=== PATIENT | male | born 1960 | race Caucasian/White ===

== ENCOUNTER 2018-02-05 17:46 | Inpatient (IN) | payer OTHER ==
[2018-02-05] MEDS ORDERED: Piperacillin/Tazobactam 3.375 GM VIAL ONE (21:17)
--- NOTE | 2018-02-05 22:07 | PDOC.FPRHP ---
- History of Present Illness Chief Complaint: worsening shortness of breath History of Present Illness: Timothy Ross is a 57 yo M with PMH of T2DM, HTN, COPD who presents to the ED with a month long history of worsening shortness of breath. He has had associated increased cough and sputum production as well. The shortness of breath is worse when he is active. States he gets short of breath just walking to the restroom. Denies fevers, chills, night sweats. He has had COPD for several years and is normally controlled on a Levalbuterol nebulizer PRN. He does not use oxygen at home. States that he has had episodes like this in the past, normally brought on by allergies, and it improves with Rocephin shots. He does not take a daily inhaler. The patients sees a PA in [place] and for the last month, he has been on a trial of a z-pack, then had about 8 rocephin shots over about a 2 week period and finally levaquin, which he just finished about 2 days ago. Also states that he was getting steroids too. There therapies improved his symptoms minimally for a short period of time. - Allergies/Adverse Reactions Allergies Allergy/AdvReac Type Severity Reaction Status Date / Time No Known Drug Allergies Allergy Unverified 02/05/18 23:32 - Home Medications Comments: Unable to obtain a reliable medication list. Medication reconciliation to follow. - History PMHx: HTN, COPD, Type 2 DM PSHx: L knee surgery, L shoulder surgery, hemorrhoid repair FHx: unknown Social: Patient quit smoking 46 days ago, using nicotine patches. Denies current alcohol or drug use. Stated he used to be an alcoholic but has not drank in 10 years. - Review of Systems General: denies: fever/chills, weight/appetite/sleep changes, night sweats, fatigue Eyes: denies: eye pain, vision changes ENT: denies: nasal congestion, rhinorrhea Respiratory: reports: cough, shortness of breath, exercise intolerance. denies : congestion Cardiovascular: denies: chest pain, palpitation, edema, paroxysmal nocturnal dyspnea, orthopnea Gastrointestinal: denies: nausea, vomiting, diarrhea, constipation, abdominal pain Genitourinary: denies: incontinence, dysuria, polyuria Skin: denies: rashes, lesions, jaundice Musculoskeletal: denies: pain, tenderness, stiffness, swelling, arthritis/ arthralgias Neurological: denies: numbness, syncope, seizure, weakness Psychological: denies: anxiety, depression - Vital signs BP: 106/63 HR: 93 RR: 26 Tmax: 98.4 Pox: 95% on 3L Wt: 88 kg - Physical Exam Constitutional: NAD, awake, alert and oriented, well developed HEENT: normocephalic and atraumatic, PERRLA, EOMI, conjunctiva clear, no scleral icterus, grossly normal vision, TM's clear and intact, grossly normal hearing, normal nasal mucosa, MMM, oropharynx clear Neck: supple, FROM, trachea midline, no JVD Chest: no-tender to palpation Heart: RRR, normal S1/S2, no murmurs/rubs/gallops, no edema -Lungs: decreased air movement, diffuse wheezes bilaterally, no rales Abdomen: soft, non-tender, bowel sounds present -Abdomen: distended abdomen Musculoskeletal: normal structure, normal tone, ROM grossly normal Neurological: no focal deficit, CN II-XII intact, normal sensation Skin: no rash/lesions, capillary refill <2 seconds Heme/Lymphatic: no unusual bruising or bleeding, no petechia Psychiatric: normal mood and affect, good judgment and insight, intact recent and remote memory FMR H&P: Results - Labs Result Diagrams: 02/06/18 04:52 02/06/18 04:52 Lab results: Pertinent labs from [facility], WBC 10.9, H/H 13.5/41.4, platelets 308, Na 134, K 4.4, Cl 97, HCO3 24, BUN 13, Cr 0.91, Glucose 103, Neg d-dimer, neg trops , Mag 1.5 - EKG Interpretation EKG: Sinus Tachycardia - Radiology Interpretation CT scan - chest Status: image reviewed by me, report reviewed by me Additional comment: respiratory bronchiolitis and emphysema, small pulmonary nodule in RLL FMR H&P: A/P - Problem List (1) Acute respiratory failure with hypoxia Current Visit: Yes Status: Acute Code(s): J96.01 - ACUTE RESPIRATORY FAILURE WITH HYPOXIA (2) Acute exacerbation of chronic obstructive pulmonary disease (COPD) Current Visit: Yes Status: Acute Code(s): J44.1 - CHRONIC OBSTRUCTIVE PULMONARY DISEASE W (ACUTE) EXACERBATION (3) HTN (hypertension) Current Visit: Yes Status: Chronic Code(s): I10 - ESSENTIAL (PRIMARY) HYPERTENSION (4) Type 2 diabetes mellitus Current Visit: Yes Status: Chronic (5) COPD (chronic obstructive pulmonary disease) Current Visit: Yes Status: Chronic - Plan (1) Acute Respiratory Failure with Hypoxia: Admit to medical service. Supplement O2, patient is currently requiring 3L to maintain sats of 95%. He is not an O2 user at home. Will start IV Zosyn for Pseudamonal coverage since patient has failed outpatient therapy with levaquin, rocephin, and azithromycin. Schedule duonebs q4hr. Start prednisone. Patient received solu- medrol in the ED. (2) Acute COPD Exacerbation: Seen above. (3) HTN: Continue home meds (4) DM2: Continue home meds CODE STATUS: DNR, discussed with patient. FMR H&P: Upper Level - Pertinent history Pt is a 57 yo CM with pmhx DM2, HTN, COPD who presented to outside ED with SOB and cough refractory to home tx with albuterol neb. Pt was found to be hypoxic in the high 80's therefore placed on supplemental O2 and transferred to [facility] for further care. Pt states he has been treated over the last 2-3 wks by PCP in [place] for "bronchitis" with a total of 8 shots of rocephin, po levaquin and a recent z- pack. Also has been given a steroid per pt history. Pt states symptoms improved initially and then worsened again. He also endorses increased cough and white-to -yellow sputum production. SOB worse with activity and is now symptomatic even getting up to use the restroom. No fevers, chills, nausea/vomiting, or other systemic symptoms. Has been told he likely has COPD previously but does not carry a formal diagnosis and has never seen pulm. Endorses a 40+ pk yr history but quit smoking 46 days prior and withdrawal sxs have been controlled with nicotine patch + gum. - Pertinent findings Laboratory Tests 02/05/18 02/05/18 02/05/18 12:37 12:37 12:37 WBC 10.9 H Hgb 13.5 L Hct 41.4 L Plt Count 383 Neutrophils % 64.0 D-Dimer Sodium 134 L Potassium 4.4 Chloride 97 L Carbon Dioxide 24 BUN 13 Creatinine 0.91 Estimated GFR (MDRD) 86 Troponin I Less than 0.010 B-Natriuretic Peptide 02/05/18 02/05/18 12:37 12:37 WBC Hgb Hct Plt Count Neutrophils % D-Dimer Less than 0.27 L Sodium Potassium Chloride Carbon Dioxide BUN Creatinine Estimated GFR (MDRD) Troponin I B-Natriuretic Peptide Less than 10.0 CXR- flattened diaphragms, slight inc right perihilar region CT chest- bronchiolitis + emphysema w/ 5mm RLL nodule Sig PE findings- gen- mild resp distress cv- tachycardic to 110s, no mrg lungs- diffuse pronounced wheezes, no rales. LE- no edema abd- distended but no fluid wave neuro- A&O x 3, affect appropriate - Plan Date/Time: 02/05/18 2207 57yo CM w/ pmhx HTN, COPD, DM2 & tobacco abuse-- 1) Acute hypoxic respiratory failure due to Acute COPD exacerbation- admit to medical with supplemental O2. Give duonebs scheduled q4hr, q2hr prn. discussed need for long-term use of anticholinergic upon discharge. daily po prednisone 40mg. given failure of outpt therapy with rocephin, azithromycin & levaquin, will start zosyn for anti-pseudomonal activity. consult case mgmt for assistance with meds and potentially supplemental O2. 2) COPD- long-term anticholinergic for home use upon d/c. 3) HTN- home rx 4) DM2- home rx. I, [Melissa Melo DO ([email or web address])], have evaluated this patient and agree with findings/plan as outlined by editorial intern resident. Pertinent changes/additions are listed here. Attending Addendum - Attending Addendum Date/Time: 02/06/18 0857 I personally evaluated the patient and discussed the management with Dr. Rousseau on 02/05/18. I agree with the History, Examination, Assessment and Plan documented above with any addition or exceptions noted below. Acute exacerbation of COPD with hypoxia responsive to nebs and NC O2, for steroid management. Consult Pulm.
[2018-02-05] MEDS ORDERED: Calcium Carbonate 500 MG ChewTAB PO PRN (23:29)
[2018-02-05] MEDS ORDERED: Bisacodyl 10 MG SUPP PR PRN (23:29)
[2018-02-05] MEDS ORDERED: Ondansetron ODT 4 MG TAB PO PRN (23:29)
[2018-02-05] MEDS ORDERED: Guaifenesin DM 100-10/5 ML UDCUP PO PRN (23:29)
[2018-02-05] MEDS ORDERED: Ondansetron HCl/PF 4 MG/2 ML Vial IVP PRN (23:29)
[2018-02-05] MEDS ORDERED: Acetaminophen 650 MG Suppository PR PRN (23:29)
[2018-02-05] MEDS ORDERED: Mag-Al 1200 mg/1200 mg/30 ML UDCUP PO PRN (23:29)
[2018-02-05] MEDS ORDERED: methylPREDNISolone Sod Succ/PF 125 MG/2 ML VIAL IVP SCH (23:45)
[2018-02-05] MEDS ORDERED: Nicotine 21 MG PATCH TD SCH (23:59)
[2018-02-06 01:11] VITALS: BMI 28.6
[2018-02-06] MEDS: Sodium Chloride 0.9% 1,000 ML IV SCH ×3 (01:16→15:55)
[2018-02-06] MEDS: Piperacillin/Tazobactam 3.375 GM in Sodium Chloride 0.9% 100 ML IVPB SCH ×3 (03:55→15:13)
[2018-02-06 05:23] LABS: #Monocytes 0.2 thou/uL (0.11-0.59); #Neutrophils 11.9 thou/uL (1.40-6.50); %Basophils 0.1 % (0.0-1.0); %Eosinophils 0.1 % (0.0-10.0); %Lymphocytes 7.8 % (21.0-51.0); %Monocytes 1.5 % (0.0-10.0); %Neutrophils 90.5 % (42.0-75.0); Hemoglobin 11.8 g/dL (14.0-18.0); Mean Corpuscular HGB CONC 32.7 g/dL (32.0-36.0); Mean Corpuscular Hemoglobin 29.6 pg (27.0-31.0); Mean Corpuscular Volume 90.4 fl (80.0-94.0); Mean Platelet Volume 6.2 fL (7.4-10.4); Platelet Count 345 thou/uL (130-400); RBC Distribution Width 12.8 % (11.5-14.5); Red Blood Cell (RBC) Count 3.99 mill/uL (4.70-6.10); White Blood Cell (WBC) Count 13.1 thou/uL (4.8-10.8)
[2018-02-06 05:43] LABS: Anion Gap 12 mmol/L (10-20); BUN (Urea Nitrogen) 11 mg/dL (8.4-25.7); Calc. Creatinine Clearance 128 mL/min (70-130); Calcium 8.6 mg/dL (7.8-10.44); Carbon Dioxide 24 mmol/L (22-29); Chloride 103 mmol/L (98-107); Estimated GFR-MDRD Greater than 90; Glucose 142 mg/dL (70-105); Potassium 4.1 mmol/L (3.5-5.1); Sodium 135 mmol/L (136-145)
[2018-02-06] MEDS ORDERED: predniSONE 20 MG TAB PO SCH (08:00)
[2018-02-06] MEDS: Enoxaparin Sodium 40 MG/0.4 ML SYRINGE SC SCH (08:11)
[2018-02-06] MEDS: Docusate 100 MG CAP PO SCH ×2 (08:12→20:53)
--- NOTE | 2018-02-06 11:01 | PDOC.FM ---
- Subjective Subjective: FLAVIA overnight, VSS. Some symptomatic improvement w/ nebs and O2 per patient. Still endorsing productive cough. - Objective MAR Reviewed: Yes Vital Signs & Weight: Vital Signs (12 hours) Temp Pulse Resp BP Pulse Ox 02/06/18 08:00 97.7 F 103 H 18 119/64 98 02/06/18 07:33 95 02/06/18 07:31 101 H 22 H 95 02/06/18 05:27 98.2 F 101 H 22 H 143/71 H 92 L 02/06/18 01:19 82 20 96 02/06/18 00:00 98.2 F 82 20 02/05/18 23:29 98.2 F 96 22 H 124/73 96 Weight Weight 88 kg I&O: 02/05/18 02/06/18 02/07/18 06:59 06:59 06:59 Intake Total 360 Balance 360 Result Diagrams: 02/06/18 04:52 02/06/18 04:52 <Grant Boudreaux K - Last Filed: 02/06/18 10:58> - Objective Vital Signs & Weight: Vital Signs (12 hours) Temp Pulse Resp BP Pulse Ox 02/08/18 19:09 99 18 94 L 02/08/18 17:34 99 02/08/18 17:31 80 22 H 99 02/08/18 16:00 97.8 F 103 H 20 129/85 95 02/08/18 11:27 98.3 F 80 26 H 150/90 H 97 02/08/18 08:00 98.3 F 60 24 H 149/93 H 93 L 02/08/18 07:32 97.8 F 60 20 Weight Weight 88 kg I&O: 02/07/18 02/08/18 02/09/18 06:59 06:59 06:59 Intake Total 840 1440 1000 Balance 840 1440 1000 Result Diagrams: 02/06/18 04:52 02/06/18 04:52 <Jarod Guadalupe - Last Filed: 02/08/18 19:16> Phys Exam - Physical Examination Constitutional: NAD decreased insp phase w/ prolonged exp. Diffuse rhonci and wheezes Cardiovascular: RRR, no significant murmur Gastrointestinal: soft Musculoskeletal: no edema, pulses present Neurological: moves all 4 limbs Psychiatric: normal affect, A&O x 3 Skin: cap refill <2 seconds <Grant Boudreaux K - Last Filed: 02/06/18 10:58> Dx/Plan (1) Acute respiratory failure with hypoxia Code(s): J96.01 - ACUTE RESPIRATORY FAILURE WITH HYPOXIA Status: Acute Plan: Likely 2/2 COPD exacerbation Pt w/ unusual outpatient treatment of exacerbation getting various antibiotics and courses of steroids over the span of a month Concern for atypical infection causing continued sxs Will obtain resp GS, culture, AF stain, and viral panel to further evaluate Pulm consulted Cont. w/ steroids, abx, nebs, and supplemental O2 pending Pulm recs (2) HTN (hypertension) Code(s): I10 - ESSENTIAL (PRIMARY) HYPERTENSION Status: Chronic Plan: Stable on home meds will continue (3) Type 2 diabetes mellitus Status: Chronic Plan: Cont. metformin Will add SSI 2/2 effect of steroids on sugars to prevent overt hyperglycemia in the setting of presumed infection (4) Acute exacerbation of chronic obstructive pulmonary disease (COPD) Code(s): J44.1 - CHRONIC OBSTRUCTIVE PULMONARY DISEASE W (ACUTE) EXACERBATION Status: Acute Plan: See above Will need daily control inhaler upon d/c <Grant Boudreaux K - Last Filed: 02/06/18 10:58> Attending Addendum - Attending Addendum Date/Time: 02/08/181915 I personally evaluated the patient and discussed the management with Dr. Boudreaux on 02/06/18. I agree with the History, Examination, Assessment and Plan documented above with any addition or exceptions noted below. <Jarod Guadalupe - Last Filed: 02/08/18 19:16>
[2018-02-06] MEDS ORDERED: HumaLOG 300 UNITS/3 ML VIAL SC PRN (11:03)
[2018-02-06] MEDS ORDERED: Dextrose 50% Abboject 50 ML SYRINGE SLOW IVP PRN (11:03)
[2018-02-06] MEDS ORDERED: Dextrose 5% in Water 1,000 ML IV PRN (11:03)
[2018-02-06] MEDS: guaiFENesin ER 600 MG TAB PO SCH (20:53)
--- NOTE | 2018-02-07 00:52 | CON ---
DATE OF CONSULTATION: 02/06/2018 SERVICE: Pulmonary Medicine. REASON FOR CONSULTATION: COPD exacerbation. HISTORY OF PRESENT ILLNESS: The patient is a very pleasant 57-year-old white male with past medical history significant for tobacco abuse. He has emphysema. He usually gets a COPD exacerbation once a year. When this occurs, he typically gets an antibiotic and steroid and almost immediately resolves. This year, however, it was different. He remembers everything being okay up until about 5 weeks prior to presentation. He developed a COPD exacerbation. Ultimately, he was given a Z-Iftikhar, Rocephin injections, and fluoroquinolone. He was given steroids frequently. At no point did he have a significant improvement in his symptoms. As such, he was told to go to the emergency department. Here, chest x-ray was performed. This was not too terribly remarkable, which prompted a CT scan. This showed a culprit lesion. He denies fevers or chills. He is coughing. He is bringing up some sputum. He has not had any night sweats, hemoptysis. PAST MEDICAL HISTORY: 1. COPD. 2. Hypertension. 3. Type 2 diabetes mellitus. PAST SURGICAL HISTORY: 1. Left knee surgery. 2. Left shoulder surgery. 3. Hemorrhoid repair. FAMILY HISTORY: Noncontributory. SOCIAL HISTORY: The patient has a [id number] history of smoking. He quit roughly a month ago. He denies any alcohol or illicit drugs. He has a remote history of drinking heavily, but he discontinued this habit over 10 years ago. He has no exposure to chemicals, dust asbestos or tuberculosis. REVIEW OF SYSTEMS: General, head, ears, eyes, nose, throat, cardiovascular, respiratory, GI, , musculoskeletal, neurologic and skin is negative except as mentioned in the HPI. ALLERGIES: No known drug allergies. MEDICATIONS: List of inpatient medications was reviewed. Multiple updates were made at this time. PHYSICAL EXAMINATION: VITAL SIGNS: Afebrile, pulse 109, blood pressure 135/70, respirations 20, saturation 94% on room air. GENERAL: The patient is awake and alert, in no apparent distress. LUNGS: Decent air entry on the right. He has a prolonged inspiratory phase compared to what I am used to. He has got a prolonged expiratory phase with a fixed wheeze over the left chest. There is no wheezing over the right chest. HEART: Normal rate, regular. ABDOMEN: Soft, nontender, nondistended. Bowel sounds are positive. MUSCULOSKELETAL: No cyanosis or clubbing. There is no pitting in the bilateral lower extremities. NEUROLOGIC: Grossly nonfocal. LABORATORY DATA: WBC 13.1, hemoglobin 11.8, platelets 345,000. D-dimer is less than 0.27. INR 1.0. Basic metabolic profile is unremarkable. Glucose 132 -199. BNP 10, troponin is below assay limits of normal. Liver function studies are unremarkable. Microbiology includes negative strep screen and negative for influenza. IMAGING: CT of the chest demonstrates minimal tree-in-bud opacifications that are scattered throughout couple of areas of the lung. Truth be told, this is nothing of significance. There is a large left main stem lesion that is nearly obliterating the lumen of the entire left main stem bronchus. ASSESSMENT: 1. Chronic obstructive pulmonary disease without current exacerbation. 2. 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 3. History of tobacco abuse. PLAN: All antibiotics and steroids will be interrupted. We will continue giving him nebulized medications. I will add Mucinex because this might help him clear his secretions. I am going to get rid of all cough suppressant medications. I will keep him n.p.o. after midnight in preparation for a bronchoscopy tomorrow morning. I am hopeful that we will find aspirated material down there like a hunk of steak. His story was that he had acute increase in breathing difficulty starting a month ago. That would be in keeping with inspissation of some foreign body. That being said, it has more of a tissue type of appearance and my fear is that we could be dealing with an endobronchial growth/tumor/cancer. 70 minutes have been devoted to this patient in various activities. I personally reviewed all imaging studies and laboratory data noted within this document. For fifty percent of this time, I was interacting with the patient at the bedside or coordinating care with the care team. For the remainder of the time I was immediately available to the patient in the hospital unit. SALVADOR
--- NOTE | 2018-02-07 07:44 | PDOC.FM ---
- Subjective Subjective: FLAVIA overnight, VSS. NPO in prep for bronch this AM w/ Pulm - Objective MAR Reviewed: Yes Vital Signs & Weight: Vital Signs (12 hours) Temp Pulse Resp BP Pulse Ox 02/07/18 07:38 97.6 F 82 20 131/88 95 02/07/18 07:19 95 02/07/18 07:16 81 18 95 02/07/18 04:00 97.6 F 86 20 136/85 94 L 02/07/18 01:09 82 20 95 02/07/18 00:00 97.7 F 93 16 144/87 H 94 L 02/06/18 21:50 96 20 95 02/06/18 20:00 98.8 F 98 18 123/79 98 Weight Weight 88 kg I&O: 02/06/18 02/07/18 02/08/18 06:59 06:59 06:59 Intake Total 840 Balance 840 Result Diagrams: 02/06/18 04:52 02/06/18 04:52 <Grant Boudreaux K - Last Filed: 02/07/18 07:43> - Objective Vital Signs & Weight: Vital Signs (12 hours) Temp Pulse Resp BP Pulse Ox 02/07/18 09:43 82 16 95 02/07/18 07:44 97.6 F 82 20 95 02/07/18 07:38 97.6 F 82 20 131/88 95 02/07/18 07:19 95 02/07/18 07:16 81 18 95 02/07/18 04:00 97.6 F 86 20 136/85 94 L 02/07/18 01:09 82 20 95 02/07/18 00:00 97.7 F 93 16 144/87 H 94 L Weight Weight 88 kg I&O: 02/06/18 02/07/18 02/08/18 06:59 06:59 06:59 Intake Total 840 Balance 840 Result Diagrams: 02/06/18 04:52 02/06/18 04:52 <Micha Small R - Last Filed: 02/07/18 10:56> Phys Exam - Physical Examination Constitutional: NAD HEENT: PERRLA, moist MMs unilateral wheeze R-lung Cardiovascular: RRR, no significant murmur Gastrointestinal: soft, non-tender Musculoskeletal: no edema, pulses present Neurological: moves all 4 limbs Psychiatric: normal affect, A&O x 3 <Grant Boudreaux - Last Filed: 02/07/18 07:43> Dx/Plan (1) Acute respiratory failure with hypoxia Code(s): J96.01 - ACUTE RESPIRATORY FAILURE WITH HYPOXIA Status: Acute Plan: Pt w/o need for supplemental O2 overnight Going for bronch w/ Pulm this AM 2/2 partially obstructing mass in Left bronchus Foreign body vs malignancy Dispo pending findings on bronch Cont. w/ mucinex and nebs (2) HTN (hypertension) Code(s): I10 - ESSENTIAL (PRIMARY) HYPERTENSION Status: Chronic Plan: Stable on home meds will continue (3) Type 2 diabetes mellitus Status: Chronic Plan: Cont. metformin <Grant Boudreaux - Last Filed: 02/07/18 07:43> Attending Addendum - Attending Addendum Date/Time: 02/07/18 1055 I personally evaluated the patient and discussed the management with Dr. Boudreaux. I agree with the History, Examination, Assessment and Plan documented above with any addition or exceptions noted below. Patient without complaint. He is going soon for bronchoscopy to evaluate L sided bronchial mass versus foreign body. No O2 requirement and off steroids/ abx. Await further recs after bronch. His PRN nebs will be modified to albuterol only. <Micha Small - Last Filed: 02/07/18 10:56>
[2018-02-07] MEDS ORDERED: Albuterol Sulfate 2.5 mg/3 ml Neb NEB PRN (09:22)
[2018-02-07] MEDS ORDERED: EPINEPHrine 1 MG/ML AMP ONE (10:28)
[2018-02-07] MEDS ORDERED: Midazolam HCl 2 mg/2 ml Vial ONE (10:43)
[2018-02-07] MEDS ORDERED: Fentanyl 100 MCG/2 ML VIAL ONE (10:43)
[2018-02-07] MEDS ORDERED: HYDROmorphone 2 MG/ML VIAL SLOW IVP PRN (11:24)
[2018-02-07] MEDS ORDERED: Promethazine HCl 25 MG/ML VIAL IM PRN (11:24)
[2018-02-07] MEDS ORDERED: Morphine Sulfate 2 MG/ML SYRINGE SLOW IVP PRN (11:24)
[2018-02-07] MEDS ORDERED: Meperidine HCl/PF 25 MG/ML VIAL SLOW IVP PRN (11:24)
[2018-02-07] MEDS ORDERED: Ondansetron HCl/PF 4 MG/2 ML Vial IVP PRN (11:24)
[2018-02-07] MEDS ORDERED: Promethazine HCl 25 MG/ML VIAL SLOW IVP PRN (11:24)
[2018-02-07] MEDS ORDERED: Morphine 4 MG/ML VIAL ONE (11:49)
--- NOTE | 2018-02-07 12:02 | PRG ---
DATE OF SERVICE: 02/07/2018 SERVICE: Pulmonary Medicine. INTERVAL HISTORY: The patient is doing fine from a respiratory standpoint. He does not like using t he nebulized medications. They really do not seem to help that all. As such, we will transition him over to p.r.n. medications. Otherwise, there has been no interval changes to his condition. He den ies any chest pain, nausea or vomiting. He has no shortness of breath, he is breathing comfortably, but has dyspnea with exertion. He also continues to have a cough and brings up a little bit of sputu m. PHYSICAL EXAMINATION: VITAL SIGNS: Afebrile, pulse 82, blood pressure 131/88, respirations 20 and saturation 95% on room a ir. GENERAL: The patient is awake and alert, in no apparent distress. LUNGS: Decent air entry. There is a prolonged expiratory phase. There is expiratory wheezing, whic h is fixed over the left side. HEART: Normal rate and regular. ABDOMEN: Soft, nontender and nondistended. Bowel sounds are positive. MUSCULOSKELETAL: No cyanosis or clubbing. No pitting in the bilateral lower extremities. NEUROLOGIC: Grossly nonfocal. LABORATORY DATA: Respiratory virus panel is positive for human metapneumovirus. ASSESSMENT: 1. Chronic obstructive pulmonary disease without current exacerbation. 2. Human metapneumovirus. 3. Endobronchial mass in the left mainstem bronchus. 4. History of tobacco abuse. DISCUSSION AND PLAN: We will proceed with bronchoscopy as previously directed. His nebulized medica tions will be switched over to p.r.n. Pulmonary Critical Care will continue to follow for the time whitney shipley, but from my perspective, he is stable for transition out of the hospital and can likely follow up with myself or primary in the outpatient setting to discuss the results of the pathology, which pr obably will come back until Friday. I do not recommend any steroids or nebulized medications in the outpatient setting.
[2018-02-07] MEDS: guaiFENesin ER 600 MG TAB PO SCH ×2 (12:55→20:20)
[2018-02-07] MEDS: Nicotine 7 MG PATCH TD SCH (12:55)
[2018-02-07] MEDS: Docusate 100 MG CAP PO SCH ×2 (12:55→20:20)
[2018-02-07] MEDS ORDERED: Succinylcholine Chloride 20 MG/ML 10 ml SYRINGE FS ONE (15:03)
[2018-02-07] MEDS ORDERED: Lidocaine 1% PF 5 ML VIAL ONE (15:03)
[2018-02-07] MEDS ORDERED: Ondansetron HCl/PF 4 MG/2 ML Vial ONE (15:03)
[2018-02-07] MEDS ORDERED: PROPOFOL 200 MG/20 ML VIAL ONE (15:03)
[2018-02-07] MEDS: Acetaminophen 325 MG TAB PO PRN (15:06)
--- NOTE | 2018-02-07 20:56 | OP ---
DATE OF PROCEDURE: 02/07/2018 SERVICE: Pulmonary Medicine. PROCEDURES: Fiberoptic bronchoscopy with: 1. Airway inspection. 2. Endobronchial biopsies of the left endobronchial mass. 3. Bronchial lavage of the left lung. PREPROCEDURE DIAGNOSES: 1. Chronic obstructive pulmonary disease. 2. Endobronchial mass. POSTPROCEDURE DIAGNOSES: 1. Chronic obstructive pulmonary disease. 2. Endobronchial mass. PROCEDURE GREENHOUSE TECHNICIAN: Johny Encarnacion M.D. MEDICATIONS USED: For list of the medications, please refer to anesthesia documentation. PREANESTHESIA ASSESSMENT: H and P had been performed. The patient's medications and allergies were reviewed. Informed consent was obtained after discussing the risks, benefits, and rationale for perf orming procedure as well as alternative options. DESCRIPTION OF PROCEDURE: A timeout was performed identifying the correct procedure and patient with name and date of . A diagnostic fiberoptic bronchoscope was introduced through and the 8.0 end otracheal tube. The bronchoscope was advanced into the trachea where a tracheobronchial tree inspect ion was carried out with clear identification of the right upper lobe, right middle lobe and right lo wer lobe. The left lung was completely blocked off by a left endobronchial lesion that was roughly 3 cm distal to the robert. I could not pass the bronchoscope beyond this, but I could easily pass bio psy forceps beyond this lesion. Endobronchial biopsies were taken under direct observation of the en dobronchial mass. Hemostasis was verified. The bronchial washing taken during the duration of the p rocedure was sent to pathology. The hemostasis was verified and bronchoscope was subsequently remove d from the patient. FINDINGS: 1. Secretions were minimal and thin. 2. Left main stem bronchus endobronchial mass completely obliterated the distal evaluation, but inst ruments could easily pass distal to it. SPECIMENS OBTAINED: 1. Endobronchial biopsy. 2. Bronchial washing for cytology. COMPLICATIONS: None. ESTIMATED BLOOD LOSS: None. FLUOROSCOPY TIME: None. DISPOSITION: The patient will be observed in the postanesthesia care unit and returned to the floor after he meets criteria.
[2018-02-08] MEDS ORDERED: PROVENTIL INHALER 6.7 G (200 INHALATIONS) INH PRN (07:22)
--- NOTE | 2018-02-08 07:26 | PDOC.FM ---
- Subjective Subjective: FLAVIA overnight, VSS. Pt states he did not think the nebs were helping his sxs. No new complaints. - Objective MAR Reviewed: Yes Vital Signs & Weight: Vital Signs (12 hours) Temp Pulse Resp BP Pulse Ox 02/08/18 04:00 97.8 F 60 20 149/87 H 94 L 02/08/18 00:16 93 L 02/08/18 00:00 97.9 F 80 20 137/91 H 94 L 02/07/18 20:00 98.3 F 91 18 149/83 H 93 L Weight Weight 88 kg I&O: 02/07/18 02/08/18 02/09/18 06:59 06:59 06:59 Intake Total 840 1440 Balance 840 1440 Result Diagrams: 02/06/18 04:52 02/06/18 04:52 <Grant Boudreaux - Last Filed: 02/08/18 07:24> - Objective Vital Signs & Weight: Vital Signs (12 hours) Temp Pulse Resp BP Pulse Ox 02/08/18 08:00 98.3 F 60 24 H 149/93 H 93 L 02/08/18 07:32 97.8 F 60 20 02/08/18 04:00 97.8 F 60 20 149/87 H 94 L 02/08/18 00:16 93 L 02/08/18 00:00 97.9 F 80 20 137/91 H 94 L Weight Weight 88 kg I&O: 02/07/18 02/08/18 02/09/18 06:59 06:59 06:59 Intake Total 840 1440 Balance 840 1440 Result Diagrams: 02/06/18 04:52 02/06/18 04:52 <Micha Small - Last Filed: 02/08/18 10:39> Phys Exam - Physical Examination Constitutional: NAD HEENT: PERRLA b/l wheezing Cardiovascular: RRR, no significant murmur Gastrointestinal: soft, non-tender Neurological: moves all 4 limbs Psychiatric: normal affect, A&O x 3 Skin: cap refill <2 seconds <Grant Boudreaux - Last Filed: 02/08/18 07:24> Dx/Plan (1) Acute respiratory failure with hypoxia Code(s): J96.01 - ACUTE RESPIRATORY FAILURE WITH HYPOXIA Status: Acute Plan: Pt w/o need for supplemental O2 overnight Bronch showing mass in left bronchus w/ bx taken. Pending path Metapneumovirus + on viral PCR likely complicating this disease process Nebs not helping 2/2 making pt cough too much, feels mucinex is however Will start albuterol and dulera inhalers today for symptomatic relief (2) HTN (hypertension) Code(s): I10 - ESSENTIAL (PRIMARY) HYPERTENSION Status: Chronic Plan: Stable on home meds will continue (3) Type 2 diabetes mellitus Status: Chronic Plan: Cont. metformin <Grant Boudreaux - Last Filed: 02/08/18 07:24> Attending Addendum - Attending Addendum Date/Time: 02/08/18 1037 I personally evaluated the patient and discussed the management with Dr. Boudreaux. I agree with the History, Examination, Assessment and Plan documented above with any addition or exceptions noted below. Patient doing well after bronchoscopy that showed large obstructing mass in bronchiole tree. Awaiting pathology. He will follow up with Pulm in outpatient setting. If he is feeling well this afternoon, will be discharged home. He has some anxiety about discharge and being so far away from a medical center, but all labs and vitals are reassuring and this has been discussed with him. <Micha Small - Last Filed: 02/08/18 10:39>
[2018-02-08] MEDS: guaiFENesin ER 600 MG TAB PO SCH ×2 (08:36→21:54)
[2018-02-08] MEDS: Nicotine 7 MG PATCH TD SCH (08:37)
[2018-02-08] MEDS: Enoxaparin Sodium 40 MG/0.4 ML SYRINGE SC SCH (08:37)
[2018-02-08] MEDS: Acetaminophen 325 MG TAB PO PRN ×2 (08:44→21:59)
[2018-02-08] MEDS: Docusate 100 MG CAP PO SCH ×2 (09:02→21:54)
--- NOTE | 2018-02-08 17:41 | PRG ---
DATE OF SERVICE: 02/08/2018 SERVICE: Pulmonary Medicine. INTERVAL HISTORY: The patient is doing fine from a cardiovascular and respiratory standpoint. He is actually wheezing on both sides of the chest today. He denies any chest pain, nausea, vomiting. He is coughing up a little bit of blood-tinged sputum, but mostly is mucus. He denies any other acute events overnight. PHYSICAL EXAMINATION: VITAL SIGNS: Afebrile, pulse 80, blood pressure 150/90, respirations 26, saturation 97% on room air. GENERAL: The patient is awake, alert, no apparent distress. LUNGS: Decent air entry with no prolonged expiratory phase, wheezing, rhonchi or crackles. HEART: Normal rate, regular. ABDOMEN: Soft, nontender, nondistended. Bowel sounds are positive. MUSCULOSKELETAL: No cyanosis or clubbing. There is no pitting in the bilateral lower extremities. NEUROLOGIC: Grossly nonfocal. LABORATORY DATA: Blood sugar ranges from 83-117. ASSESSMENT: 1. Chronic obstructive pulmonary disease with acute exacerbation, likely secondary to endobronchial blood. 2. Human metapneumovirus. 3. 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 4. History of tobacco abuse. PLAN: We are awaiting the final culture results that we can formulate a plan moving forward. If thi s is a cancer growth, we will need to get Oncology and Radiation Oncology's opinion. This would be v terry amenable to interventional pulmonary intervention. This mass is very close to complete obstructi on in the left main stem bronchus. Pulmonary will continue to follow.
[2018-02-08] MEDS: Mometasone/Formoterol 120 PUFF INHALER INH SCH (19:09)
[2018-02-09] MEDS: Mometasone/Formoterol 120 PUFF INHALER INH SCH ×2 (06:33→20:41)
[2018-02-09] MEDS: guaiFENesin ER 600 MG TAB PO SCH ×2 (07:50→21:15)
[2018-02-09] MEDS: Enoxaparin Sodium 40 MG/0.4 ML SYRINGE SC SCH (07:50)
[2018-02-09] MEDS: Docusate 100 MG CAP PO SCH ×2 (07:51→21:15)
[2018-02-09] MEDS: Nicotine 7 MG PATCH TD SCH (07:51)
--- NOTE | 2018-02-09 11:03 | PRG ---
DATE OF SERVICE: 02/09/2018 SERVICE: Pulmonary Medicine. INTERVAL HISTORY: The patient is doing okay from a respiratory standpoint. He has a hard time lying down at night. He has to sleep upright. He is getting by just fine; however. He is using nebulize d medication and brings up a whole bunch of sputum. Outside of this, he denies any chest pain, nause a, vomiting. When he breathes slowly, he has continuous wheezing, but he is moving good air. Whenev er he starts to exercise, he has significant limitations in what he can do. PHYSICAL EXAMINATION: VITAL SIGNS: Afebrile, pulse 86, blood pressure 145/90, respirations 16, saturation 98% on room air. GENERAL: The patient is awake, alert, no apparent distress. LUNGS: Decent air entry. There is fixed wheeze in the left side. HEART: Normal rate, regular. ABDOMEN: Soft, nontender, nondistended. Bowel sounds positive. MUSCULOSKELETAL: No cyanosis or clubbing. There is no pitting in the bilateral lower extremities. NEUROLOGIC: Grossly nonfocal. LABORATORY DATA: WBC 13.1, hemoglobin 11.8, and platelets 345,000. Respiratory virus culture is pos itive for human metapneumovirus. ASSESSMENT: 1. Chronic obstructive pulmonary disease with acute exacerbation, likely secondary to endobronchial blood and/or human metapneumovirus. 2. 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 3. History of tobacco abuse. PLAN: The patient is doing okay from a respiratory standpoint. At this point, I do think because of his symptoms, it would be reasonable to transition him out of our hospital to a location that is cap able of either putting a stent in or debulking this tumor in the left lung. Pathology is currently p ending, but my suspicion is that we are dealing with some sort of growth, either benign or malignant. 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 This mass is very close to comp letely obstructing the left main stem bronchus. I am able to get a small bronchoscope and small tool s distal to it. As such, I think that the patient can drive excellent improvement in symptoms with p ossible procedure. As such, we will make preparations for getting him to a tertiary care center [facility]
--- NOTE | 2018-02-09 11:57 | PDOC.FM ---
- Subjective Subjective: FLAVIA overnight, no new complaints. Slight improvement in sxs w/ inhalers - Objective MAR Reviewed: Yes Vital Signs & Weight: Vital Signs (12 hours) Temp Pulse Resp BP Pulse Ox 02/09/18 11:25 98.2 F 98 20 136/89 96 02/09/18 10:48 99 20 98 02/09/18 08:00 97.8 F 86 16 98 02/09/18 07:38 97.8 F 86 16 145/90 H 98 02/09/18 06:33 86 16 95 02/09/18 04:46 91 20 95 02/09/18 00:00 97.8 F 81 20 138/94 H 93 L Weight Weight 88 kg I&O: 02/08/18 02/09/18 02/10/18 06:59 06:59 06:59 Intake Total 1440 1000 Balance 1440 1000 Result Diagrams: 02/06/18 04:52 02/06/18 04:52 <Grant Boudreaux - Last Filed: 02/09/18 11:55> - Objective Vital Signs & Weight: Weight Weight 88 kg Result Diagrams: 02/06/18 04:52 02/06/18 04:52 <Carlo Thornton - Last Filed: 06/10/18 15:53> Phys Exam - Physical Examination Constitutional: NAD HEENT: PERRLA, moist MMs Neck: no nodes wheezes b/l Cardiovascular: RRR, no significant murmur Gastrointestinal: soft, non-tender Musculoskeletal: no edema, pulses present Neurological: non-focal, moves all 4 limbs Lymphatic: no nodes <Grant Boudreaux - Last Filed: 02/09/18 11:55> Dx/Plan (1) Acute respiratory failure with hypoxia Code(s): J96.01 - ACUTE RESPIRATORY FAILURE WITH HYPOXIA Status: Acute Plan: Pt w/o need for supplemental O2 overnight Bronch showing mass in left bronchus w/ bx taken. Pending path Metapneumovirus + on viral PCR likely complicating this disease process Nebs not helping 2/2 making pt cough too much, feels mucinex is however Will start albuterol and dulera inhalers today for symptomatic relief TXR to [facility] for possible stent placement per pulm (2) HTN (hypertension) Code(s): I10 - ESSENTIAL (PRIMARY) HYPERTENSION Status: Chronic Plan: Stable on home meds will continue (3) Type 2 diabetes mellitus Status: Chronic Plan: Cont. metformin <Grant Boudreaux - Last Filed: 02/09/18 11:55> (1) Acute respiratory failure with hypoxia Code(s): J96.01 - ACUTE RESPIRATORY FAILURE WITH HYPOXIA Status: Acute (2) Acute exacerbation of chronic obstructive pulmonary disease (COPD) Code(s): J44.1 - CHRONIC OBSTRUCTIVE PULMONARY DISEASE W (ACUTE) EXACERBATION Status: Acute (3) HTN (hypertension) Code(s): I10 - ESSENTIAL (PRIMARY) HYPERTENSION Status: Chronic (4) Type 2 diabetes mellitus Status: Chronic (5) COPD (chronic obstructive pulmonary disease) Status: Chronic <Carlo Thornton - Last Filed: 06/10/18 15:53> Attending Addendum - Attending Addendum Date/Time: 06/10/18 4011 I personally evaluated the patient and discussed the management with Dr. Boudreaux on 02/09/18 I agree with the History, Examination, Assessment and Plan documented above with any addition or exceptions noted below. Pt. had bronch showing obstructing mass, biopsies and washings obtained. Likely will need transfer for stenting. Await final path. Respiratory support as indicated. <Carlo Thornton - Last Filed: 06/10/18 15:53>
[2018-02-09] MEDS: Acetaminophen 325 MG TAB PO PRN (21:15)
[2018-02-10] MEDS: Mometasone/Formoterol 120 PUFF INHALER INH SCH ×2 (06:57→16:42)
--- NOTE | 2018-02-10 08:33 | PDOC.FM ---
- Subjective Subjective: FLAVIA overnight, VSS. Sitting in chair on RA. No new complaints. Discussion about Code status was re-visited and discussed that if bronchial mass was to obstruct he may need to be intubated. Pt was DNR at time of admission and revoked in order to get bronched this past weekend. After discussion patient changed his mind and stated that he would want chest compressions and intubation if necessary. Pt expressed understanding of changing his code status to full code and asked that this change be reflected in his medical record. - Objective MAR Reviewed: Yes Vital Signs & Weight: Vital Signs (12 hours) Temp Pulse Resp BP Pulse Ox 02/10/18 07:38 98.7 F 105 H 18 123/85 96 02/10/18 06:56 88 20 95 Weight Weight 88 kg I&O: 02/09/18 02/10/18 02/11/18 06:59 06:59 06:59 Intake Total 1000 Balance 1000 Result Diagrams: 02/06/18 04:52 02/06/18 04:52 <Grant Boudreaux - Last Filed: 02/10/18 08:30> - Objective Vital Signs & Weight: Vital Signs (12 hours) Temp Pulse Resp BP Pulse Ox 02/10/18 08:00 98.7 F 105 H 18 96 02/10/18 07:38 98.7 F 105 H 18 123/85 96 02/10/18 06:56 88 20 95 Weight Weight 88 kg I&O: 02/09/18 02/10/18 02/11/18 06:59 06:59 06:59 Intake Total 1000 Balance 1000 Result Diagrams: 02/06/18 04:52 02/06/18 04:52 <Carlo Thornton - Last Filed: 02/10/18 10:56> Phys Exam - Physical Examination Constitutional: NAD HEENT: PERRLA, moist MMs wheezes diffusely b/l Cardiovascular: RRR, no significant murmur Gastrointestinal: soft, non-tender, no distention, positive bowel sounds Musculoskeletal: pulses present Neurological: moves all 4 limbs <Grant Boudreaux - Last Filed: 02/10/18 08:30> Dx/Plan (1) Acute respiratory failure with hypoxia Code(s): J96.01 - ACUTE RESPIRATORY FAILURE WITH HYPOXIA Status: Acute Plan: Pt w/o need for supplemental O2 overnight Bronch showing mass in left bronchus w/ bx taken. Pending path Metapneumovirus + on viral PCR likely complicating this disease process Nebs not helping 2/2 making pt cough too much, feels mucinex is however Cont. w/ albuterol and dulera inhalers today for symptomatic relief TXR to [facility] for possible stent placement per pulm. Pending TXR to [facility] today Code status changed to Full Code at patient request. See HPI. (2) HTN (hypertension) Code(s): I10 - ESSENTIAL (PRIMARY) HYPERTENSION Status: Chronic Plan: Stable on home meds will continue (3) Type 2 diabetes mellitus Status: Chronic Plan: Cont. metformin <Grant Boudreaux - Last Filed: 02/10/18 08:30> (1) Acute respiratory failure with hypoxia Code(s): J96.01 - ACUTE RESPIRATORY FAILURE WITH HYPOXIA Status: Acute (2) Acute exacerbation of chronic obstructive pulmonary disease (COPD) Code(s): J44.1 - CHRONIC OBSTRUCTIVE PULMONARY DISEASE W (ACUTE) EXACERBATION Status: Acute (3) HTN (hypertension) Code(s): I10 - ESSENTIAL (PRIMARY) HYPERTENSION Status: Chronic (4) Type 2 diabetes mellitus Status: Chronic (5) COPD (chronic obstructive pulmonary disease) Status: Chronic <Carlo Thornton - Last Filed: 02/10/18 10:56> Attending Addendum - Attending Addendum Date/Time: 02/10/18 1051 I personally evaluated the patient and discussed the management with Dr. Boudreaux I agree with the History, Examination, Assessment and Plan documented above with any addition or exceptions noted below. 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 Pathology report is still pending at this time. Patient has been stable overnight. Afebrile, normal vital signs, and not requiring oxygen support. He has finished antibiotics and steroids, on his home medications for COPD, HTN, and DMII. Patient expressed a desire to change his resuscitation status, and upon further clarification he is now a FULL code. He is awaiting transfer to [facility] for further treatment of mass. <Carlo Thornton - Last Filed: 02/10/18 10:56>
[2018-02-10] MEDS: Docusate 100 MG CAP PO SCH ×2 (09:30→20:31)
[2018-02-10] MEDS: guaiFENesin ER 600 MG TAB PO SCH ×2 (09:30→20:31)
[2018-02-10] MEDS: Nicotine 7 MG PATCH TD SCH (09:30)
[2018-02-10] MEDS: Enoxaparin Sodium 40 MG/0.4 ML SYRINGE SC SCH (09:30)
--- NOTE | 2018-02-10 09:47 | PRG ---
DATE OF SERVICE: 02/10/2018 SERVICE: Pulmonary Medicine. INTERVAL HISTORY: The patient is doing fine from a cardiovascular and respiratory standpoint. He de nies any chest pain, nausea, vomiting, shortness of breath, fevers or chills. Otherwise, he is in hi s usual state of health. He continues to have significant dyspnea with any type of exertion or anyth ing that requires him to breathe a little faster. Whenever he is resting, he does well so long as he is sitting up. When he lies down, he really cannot tolerate that and has not been able to sleep lyi ng down for a couple of weeks. PHYSICAL EXAMINATION: VITAL SIGNS: Afebrile, pulse 105, blood pressure 123/85, respirations 14, saturation 96% on room air . GENERAL: The patient is awake, alert, in no apparent distress. LUNGS: Decent air entry. There is no prolonged expiratory phase, wheezing, rhonchi, or crackles pre sent. HEART: Normal rate and regular. ABDOMEN: Soft, nontender, nondistended. Bowel sounds are positive. MUSCULOSKELETAL: No cyanosis or clubbing. No pitting in the bilateral lower extremities. NEUROLOGIC: Grossly nonfocal. LABORATORY DATA: WBC 13.1, hemoglobin 11.8, and platelets 345,000. ASSESSMENT: 1. Chronic obstructive pulmonary disease with acute exacerbation, likely from intrabronchial blood, and/or human metapneumovirus. 2. 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 3. History of tobacco abuse. DISCUSSION AND PLAN: The patient is doing absolutely fantastic from a cardiovascular and respiratory standpoint. He is in stable condition, though, that being said, I do not feel comfortable sending h im home. He is far away from any care facility. He is having a difficult time lying flat because of difficulty breathing whenever he attempts that. As such, I do think that debulking of this lesion m ay provide him with significant relief. Then we can finish the staging process. Pulmonary or Critic al Care will continue to follow if the patient remains in this location, but hopefully he will be mov ing to a tertiary center with Interventional Pulmonology today.
[2018-02-10 11:53] VITALS: BP 130/88; TEMP 98
[2018-02-10] MEDS: Acetaminophen 325 MG TAB PO PRN (20:31)
--- NOTE | 2018-02-12 11:03 | DIS-2 ---
ADMISSION DATE: 02/05/2018 DISCHARGE DATE: 02/10/2018 ADMITTING ATTENDING: Dr. Thornton. DISCHARGE ATTENDING: Dr. Thornton. RESIDENT: Dr. rGant Boudreaux. CONSULTATIONS: Pulmonology, Dr. Encarnacion. PROCEDURES: 1. Bronchoscopy. 2. CT chest at [facility] showing a tree-in-bud nodularity with a right lower lobe and lingula respiratory bronchiolitis, mild emphysema hypodensities in the right hepatic dome are difficult to ch aracterize due to size as well as a 5 mm right lower lobe nodule, which after review by Dr. Encarnacion w as felt to likely be lymph node. Upon secondary to bipolar nausea Dr. Encarnacion noticed a partially ob structing left bronchial mass. PRIMARY DIAGNOSES: 1. Chronic obstructive pulmonary disease exacerbation, likely secondary to intrabronchiole of blood verse human metapneumovirus. 2. Endobronchial mass of the left mainstem bronchus squamous cell carcinoma mass, stretch mass. SECONDARY DIAGNOSES: 1. History of tobacco abuse. 2. Type 2 diabetes mellitus. DISCHARGE MEDICATIONS: 1. Proventil HFA 1 puff q.4 hours as needed for shortness of breath or wheezing. 2. Dulera 100 mcg/5 mcg inhaler two puff inhalation b.i.d. 3. Guaifenesin ER 1200 mg p.o. b.i.d. DISCONTINUE MEDICATIONS: None. HISTORY OF PRESENT ILLNESS: The patient is a 49-year-old male who presents to the ER initially for e valuation of persistent shortness of breath with associated increased cough and sputum production. T he patient stated short of breath, worse with activity. He notes that he would get symptoms similar to this annually where he would go to his primary care provider in [place] and get a shot of IM R ocephin, which were clear of his symptoms. The patient noted that this year when this event happened . He went and was placed on initially a Z-TIEN and upon physician he is still with symptoms, was then given a course of 8 IM injection of Rocephin over the course of approximately [address] d on a course of Levaquin. This took place of the course of approximately 1 month. When the patient 's symptoms still did not resolve his provider encouraged him to go to the ER for further evaluation. In [facility], a CT chest obtained showing patient was transferred to [facility]. Patient with hi story of a diagnosis of likely chronic obstructive pulmonary disease exacerbation, resistant to outpa tient treatment and the patient was started on IV Zosyn and then transferred to [facility]. He was moved to the floor in stable condition requiring supplemental oxygen, which he does n ot use at home. Later on morning of admission, Dr. Encarnacion, Pulmonology was consulted for intricate course of the COPD exacerbation and help guide antibiotic treatment. Upon reviewing a CT scan obtain ed at [facility] in the ER, it was noted that patient had what appeared to be a partially obstructing left bronchus mass. Patient was made n.p.o. and underwent bronchoscopy with biopsy the following day . Partially obstructing mass was identified, which was concerning for likely squamous cell carcinoma , given the location. This was confirmed on pathology, day of transfer to [facility] to patient having continued shortness of breath and a cough, which was not amenable to nebulizat ion or inhaler use. IV antibiotics were stopped secondary to this likely being from his obstructing mass. It was felt the patient at high level of care at a tertiary care center which could possibly s tent this bronchus if it did become completely obstructed. Patient was transferred to [facility] in stable condition from Dr. Encarnacion and doctor at outside facility was completed. DISPOSITION: Stable. DISCHARGE INSTRUCTIONS: 1. Location: [facility]. 2. Activity: Cardiopulmonary limits. 3. Diet: Diabetic.
--- NOTE | 2018-02-18 22:59 | EKG ---
Test Reason : Blood Pressure : / mmHG Vent. Rate : 103 BPM Atrial Rate : 103 BPM P-R Int : 156 ms QRS Dur : 070 ms QT Int : 324 ms P-R-T Axes : 073 051 078 degrees QTc Int : 424 ms Sinus tachycardia Otherwise normal ECG No previous ECGs available Confirmed by Lenin CROWELL ([id number]) on 02/18/2018 10:59:12 PM Referred By: MARCO Confirmed By:Lenin CROWELL
[2018-03-11 16:15] LABS: Fungus Culture Final report (.)
== END 2018-02-10 20:50 | disposition short-term general hospital (02) | DRG 166 ==
LOC: ERS 17:46 → T4-B 19:22
PROVIDERS: ADMIT Student in an Organized Health Care Education/Training Program; ATTEND Student in an Organized Health Care Education/Training Program
PROC: 0BB78ZX Excision of Left Main Bronchus, Via Natural or Artificial Opening Endoscopic, Diagnostic (ICD-10-PCS; principal; 2018-02-07)
PROC: 0B9L8ZX Drainage of Left Lung, Via Natural or Artificial Opening Endoscopic, Diagnostic (ICD-10-PCS; 2018-02-07)
DX: C34.02 Malignant neoplasm of left main bronchus (principal); J96.01 Acute respiratory failure with hypoxia; J44.1 Chronic obstructive pulmonary disease with (acute) exacerbation; I10 Essential (primary) hypertension; E11.9 Type 2 diabetes mellitus without complications; B97.81 Human metapneumovirus as the cause of diseases classified elsewhere; F10.21 Alcohol dependence, in remission; Z87.891 Personal history of nicotine dependence; Z79.82 Long term (current) use of aspirin; Z79.899 Other long term (current) drug therapy
CPT/HCPCS: 36415; 36416; 80048; 85025; 87070; 87102; 87116; 87205; 87206; 87633; 88112; 88305; 88313; 88341; 88342; 89220; 93005; 93010; 94640; 94760; 96365; J0171; J1650; J2001; J2250; J2270; J2405; J2543; J2704; J2930; J3010; J7050; J7506; J7620

== ENCOUNTER 2019-04-12 21:03 | Inpatient (IN) | payer OTHER ==
[2019-04-12] MEDS ORDERED: Fentanyl 100 MCG/2 ML VIAL ONE (23:38)
[2019-04-13] MEDS ORDERED: Fentanyl 100 MCG/2 ML VIAL SLOW IVP PRN (00:36)
[2019-04-13] MEDS ORDERED: Ondansetron PF 4 MG/2 ML Vial IVP PRN ×2 (00:38→07:35)
[2019-04-13 00:56] VITALS: BMI 28.7
[2019-04-13] MEDS: Fentanyl 100 MCG/2 ML VIAL SLOW IVP PRN ×2 (02:40→06:38)
[2019-04-13] MEDS ORDERED: Insulin Regular 300 UNITS/3 ML VIAL SC PRN (07:35)
[2019-04-13] MEDS ORDERED: Dextrose 50% Abboject 50 ML SYRINGE SLOW IVP PRN (07:35)
[2019-04-13] MEDS ORDERED: Zolpidem Tartrate 5 MG TAB PO PRN (07:35)
[2019-04-13] MEDS ORDERED: Dextrose 5% in Water 1,000 ML IV PRN (07:35)
--- NOTE | 2019-04-13 08:16 | HP ---
PRIMARY CARE PHYSICIAN: Jorge Tenorio MD HISTORY OF PRESENT ILLNESS: The patient referred to the [facility] Service by [facility] after transferred from [facility]. The patient's problem started about 1 week ago, abdominal pain, felt like gas. For days, he could not have a bowel movement. He did have one 2 days ago. The pain is left lower quadrant. He has been taking Pepto-Bismol for the pain. He has had no nausea or vomiting. He has had no fever, chills, but he did have a sweat last night. He was seen and evaluated, diagnosis with possible perforated diverticulitis, admitted to the Hospitalist. PAST MEDICAL HISTORY: Significant for squamous cell lung cancer diagnosed in January of this year. He has undergone radiation therapy, chemotherapy, and is now on immunotherapy. His oncologist is in [place]. He has a history of COPD, type 2 diabetes, currently not on medicines, hypertension. PAST SURGICAL HISTORY: Left knee surgery, left shoulder surgery, hemorrhoid repair. CURRENT MEDICATIONS: 1. Amlodipine 5 mg twice a day. 2. Lisinopril 5 mg a day. 3. Paxil 30 mg a day. 4. Gabapentin 600 mg x1. 5. Breo Ellipta. 6. Dulera twice a day. 7. Guaifenesin. ALLERGIES: NO MEDICAL ALLERGIES, BUT MORPHINE MAKES HIM ANGRY. FAMILY HISTORY: He has 2 siblings with diverticulitis, one has required surgery. SOCIAL HISTORY: Single. Smokes half to one pack a day. No alcohol. DNR status, DNAR status, his sister Will Guzman is his next of kin and surrogate decision maker. REVIEW OF SYSTEMS: GENERAL: He had one episode of dizziness about 4 days ago on arising. No fainting. No headache. EYES: No double vision, blurred vision, flashing lights. EAR, NOSE, AND THROAT: No ear pain or drainage. No nasal bleeding. No trouble swallowing. CARDIAC: No pressured chest pain, orthopnea, or paroxysmal nocturnal dyspnea. RESPIRATIONS: He has wheezing, chronic cough. GASTROINTESTINAL: See present illness. GENITOURINARY: No hematuria, dysuria. MUSCULOSKELETAL: No pain or swelling in his arms or legs. NEUROLOGICAL: No strokes, seizures or focal weakness. PSYCHIATRIC: Anxiety, depression, on Paxil, stable. SKIN: No bruising, bleeding, or rash. HEME/LYMPH: No tender or swollen lymph nodes in axilla, inguinal, cervical area. PHYSICAL EXAMINATION: GENERAL: He is alert, oriented, pleasant, cooperative man. VITAL SIGNS: Blood pressure 143/81, temperature 97.8, pulse 78, respirations 16, O2 saturation 93% on room air. HEENT: Examination of his head, eyes, ears, nose, and throat revealed pupils are equal, round, and reactive to light. Extraocular movements are intact. Sclerae are white. Tympanic membranes are clear. Nose is clear. Oral mucous membranes are wet. Dental hygiene is adequate. NECK: Supple without jugular venous distention, adenopathy or thyromegaly. CHEST: Clear to percussion. Breath sounds are good, albeit a bit distant. HEART: Regular rate and rhythm, first and second second heart sounds are clear. There are no appreciated murmurs or gallops. ABDOMEN: Soft. Bowel sounds are normal. There is no hepatosplenomegaly. No masses. He is very tender in the left lower quadrant. The remainder of his abdominal findings, soft, no tenderness at all. Bowel sounds are present. There are no bruits. No palpable masses, hepatosplenomegaly. EXTREMITIES: No cyanosis, clubbing, or edema. PULSES: Carotid, radial, femoral, and dorsalis pedis pulses intact and symmetric. SKIN: Warm and dry without bruises or rash. HEME/LYMPH: No tender or swollen lymph nodes in the axilla, inguinal, cervical area. IMAGING DATA: Chest x-ray, none available, I have ordered one. EKG, none available, I have ordered same. LABORATORY DATA: None done in our facility. Laboratory done at outlying emergency room; CBC; white count 5.7, hemoglobin 13.7, and platelet count 209,000, no left shift. Comprehensive metabolic profile shows a blood sugar of 125, AST of 35, lipase of 84, otherwise normal. CT scan of abdomen shows sigmoid diverticulitis with free air suggestive of perforation. ADMITTING DIAGNOSES: 1. Sigmoid diverticulitis with perforation of viscus. 2. Lung cancer post chemotherapy and radiation therapy. 3. Chronic obstructive pulmonary disease. 4. Hypertension. 5. Diabetes mellitus type 2. PLAN: 1. General Surgery consult. 2. Antibiotics with Rocephin and Flagyl. 3. Fentanyl IV for pain. 4. Accu-Cheks and sliding scale. 5. DuoNeb q.6 hours routine. 6. Dulera twice a day. Job ID: [id number]
[2019-04-13 08:31] LABS: #Eosinphils 0.1 thou/uL (0.0-0.7); #Lymphocytes 1.3 thou/uL (1.20-3.40); #Monocytes 0.5 thou/uL (0.11-0.59); #Neutrophils 2.1 thou/uL (1.40-6.50); %Basophils 0.6 % (0.0-1.0); %Eosinophils 3.5 % (0.0-10.0); %Lymphocytes 32.2 % (21.0-51.0); %Monocytes 11.5 % (0.0-10.0); %Neutrophils 52.2 % (42.0-75.0); Hemoglobin 13.1 g/dL (14.0-18.0); Mean Corpuscular HGB CONC 34.5 g/dL (32.0-36.0); Mean Corpuscular Volume 92.8 fL (78.0-98.0); Mean Platelet Volume 6.4 fL (7.4-10.4); Platelet Count 169 thou/uL (130-400); RBC Distribution Width 12.7 % (11.5-14.5); Red Blood Cell (RBC) Count 4.08 mill/uL (4.70-6.10); White Blood Cell (WBC) Count 4.1 thou/uL (4.8-10.8)
[2019-04-13] MEDS: Sodium Chloride 0.9% 1,000 ML IV SCH ×2 (08:35→18:09)
[2019-04-13] MEDS: cefTRIAXone\\ROCEPHIN 2 GM in Sodium Chloride 0.9% 100 ML IVPB SCH (08:36)
[2019-04-13] MEDS: metroNIDAZOLE 500 MG in Premix Bag 1 BAG IVPB SCH ×2 (08:37→16:19)
[2019-04-13] MEDS: guaiFENesin ER 600 MG TAB PO SCH ×2 (08:38→21:12)
[2019-04-13 08:55] LABS: ALT (SGPT) 39 U/L (8-55); AST (SGOT) 30 U/L (5-34); Albumin 3.6 g/dL (3.5-5.0); Alkaline Phosphatase 49 U/L (40-150); Anion Gap 9 mmol/L (10-20); BUN (Urea Nitrogen) 12 mg/dL (8.4-25.7); Bilirubin, Total 0.6 mg/dL (0.2-1.2); Calc. Creatinine Clearance 134 mL/min (70-130); Calcium 8.6 mg/dL (7.8-10.44); Carbon Dioxide 26 mmol/L (22-29); Chloride 106 mmol/L (98-107); Estimated GFR-MDRD Greater than 90; Globulin 2.3 g/dL (2.4-3.5); Glucose 95 mg/dL (70-105); Protein, Total 5.9 g/dL (6.0-8.3); Sodium 137 mmol/L (136-145)
--- NOTE | 2019-04-13 13:20 | EKG ---
Test Reason : Blood Pressure : / mmHG Vent. Rate : 076 BPM Atrial Rate : 076 BPM P-R Int : 168 ms QRS Dur : 082 ms QT Int : 386 ms P-R-T Axes : 060 014 069 degrees QTc Int : 434 ms Normal sinus rhythm Normal ECG When compared with ECG of 06-FEB-2018 17:40, No significant change was found Confirmed by ABBEY HOLLEY, DR. Raza ([id number]) on 04/13/2019 1:20:02 PM Referred By: NARENDRA Confirmed By:DR. Luz Marina POTTER MD
[2019-04-13] MEDS: Meperidine HCl/PF 25 MG/ML VIAL SLOW IVP PRN ×2 (16:20→21:12)
--- NOTE | 2019-04-13 17:21 | RAD ---
EXAM: Chest Two Views 04/13/2019 5:18 PM HISTORY: Preop; COPD COMPARISON: January 28, 2018 FINDINGS: Heart: Normal in size and contour. Pulmonary vessels: Normal. Costophrenic angles: Clear. Lungs: No confluent pneumonia, overt edema, pleural effusion, or other acute process. Stable mild sca rring within the lingula. Pneumothorax: None. Osseous structures:Intact. Additional findings: None. IMPRESSION: No significant acute intrathoracic disease.
[2019-04-13] MEDS: Ketorolac Tromethamine 30 MG/ML VIAL IVP SCH ×2 (18:08→23:07)
[2019-04-13] MEDS: Mometasone/Formoterol 120 PUFF INHALER INH SCH (19:19)
[2019-04-14] MEDS: metroNIDAZOLE 500 MG in Premix Bag 1 BAG IVPB SCH ×2 (00:28→08:32)
[2019-04-14] MEDS: Meperidine HCl/PF 25 MG/ML VIAL SLOW IVP PRN ×6 (00:31→22:21)
[2019-04-14] MEDS: Ketorolac Tromethamine 30 MG/ML VIAL IVP SCH ×3 (05:19→17:25)
[2019-04-14] MEDS: Sodium Chloride 0.9% 1,000 ML IV SCH ×3 (05:19→22:24)
[2019-04-14] MEDS ORDERED: Spiriva 18 MCG CAP (Box of 5 Caps) INH SCH (07:00)
[2019-04-14 07:23] LABS: #Eosinphils 0.2 thou/uL (0.0-0.7); #Lymphocytes 1.2 thou/uL (1.20-3.40); #Monocytes 0.4 thou/uL (0.11-0.59); %Basophils 0.9 % (0.0-1.0); %Eosinophils 5.3 % (0.0-10.0); %Lymphocytes 30.7 % (21.0-51.0); %Monocytes 9.9 % (0.0-10.0); %Neutrophils 53.2 % (42.0-75.0); Hemoglobin 13.5 g/dL (14.0-18.0); Mean Corpuscular HGB CONC 34.4 g/dL (32.0-36.0); Mean Corpuscular Hemoglobin 31.8 pg (27.0-31.0); Mean Corpuscular Volume 92.6 fL (78.0-98.0); Mean Platelet Volume 6.4 fL (7.4-10.4); Platelet Count 191 thou/uL (130-400); RBC Distribution Width 12.6 % (11.5-14.5); Red Blood Cell (RBC) Count 4.25 mill/uL (4.70-6.10); White Blood Cell (WBC) Count 3.7 thou/uL (4.8-10.8)
[2019-04-14] MEDS: Mometasone/Formoterol 120 PUFF INHALER INH SCH ×2 (07:27→19:12)
[2019-04-14 07:41] LABS: Anion Gap 11 mmol/L (10-20); BUN (Urea Nitrogen) 8 mg/dL (8.4-25.7); Calc. Creatinine Clearance 136 mL/min (70-130); Calcium 8.5 mg/dL (7.8-10.44); Carbon Dioxide 24 mmol/L (22-29); Chloride 106 mmol/L (98-107); Estimated GFR-MDRD Greater than 90; Glucose 92 mg/dL (70-105); Potassium 3.9 mmol/L (3.5-5.1); Sodium 137 mmol/L (136-145)
[2019-04-14] MEDS: cefTRIAXone\\ROCEPHIN 2 GM in Sodium Chloride 0.9% 100 ML IVPB SCH (08:31)
[2019-04-14] MEDS: guaiFENesin ER 600 MG TAB PO SCH ×2 (08:32→20:56)
--- NOTE | 2019-04-14 11:02 | PDOC.PN ---
- Subjective Encounter Start Date: 04/14/19 Encounter Start Time: 10:59 Subjective: RLQ pain persists, no BM - Objective Resuscitation Status - Order Detail: 04/13/19 07:31 Resuscitation Status Routine Resuscitation Status: DNAR: NO Resuscitation Discussed with: Amirah Guzman is surrogate decision maker MAR Reviewed: Yes Vital Signs & Weight: Vital Signs (12 hours) Temp Pulse Resp BP Pulse Ox 04/14/19 08:35 95 04/14/19 07:28 51 L 16 95 04/14/19 07:27 51 L 16 95 04/14/19 07:20 97.7 F 70 20 122/73 98 04/14/19 04:45 97.8 F 80 20 141/88 H 95 04/14/19 00:44 97.7 F 76 20 134/81 92 L 04/14/19 00:30 76 16 Weight Weight 194 lb 8 oz I&O: 04/13/19 04/14/19 04/15/19 06:59 06:59 06:59 Intake Total 4050 Balance 4050 Result Diagrams: 04/14/19 07:15 04/14/19 07:15 Additional Labs: Accuchecks 04/14/19 04/13/19 04/13/19 05:45 21:14 15:39 POC Glucose 92 123 H 75 04/13/19 11:29 POC Glucose 86 Phys Exam - Physical Examination Neck: no JVD Respiratory: clear to auscultation bilateral Cardiovascular: RRR, no significant murmur Gastrointestinal: positive bowel sounds tender RLQ, no mass Musculoskeletal: no edema Dx/Plan (1) Diverticulitis of colon with perforation Code(s): K57.20 - DVTRCLI OF LG INT W PERFORATION AND ABSCESS W/O BLEEDING Status: Acute (2) Primary lung squamous cell carcinoma Code(s): C34.90 - MALIGNANT NEOPLASM OF UNSP PART OF UNSP BRONCHUS OR LUNG Status: Chronic (3) HTN (hypertension) Code(s): I10 - ESSENTIAL (PRIMARY) HYPERTENSION Status: Chronic Qualifiers: Hypertension type: essential hypertension Qualified Code(s): I10 - Essential (primary) hypertension (4) Type 2 diabetes mellitus Status: Chronic Qualifiers: Diabetes mellitus correction insulin use: without terminal supervisor use Diabetes mellitus complication status: without complication Qualified Code(s): E11.9 - Type 2 diabetes mellitus without complications - Plan cont NPO -: cont iv antibx -: cont analgesia -: cont nebs, etc -: cont accu/ss * .
--- NOTE | 2019-04-14 13:20 | CON ---
DATE OF CONSULTATION: 04/13/2019 CHIEF COMPLAINT: Diverticulitis with microperforation. HISTORY OF PRESENT ILLNESS: The patient is a 58-year-old white male. He lives in [place]. About a week ago, he noted pain in his lower abdomen, specifically in the left lower quadrant. This has been persistent over the course of the past week, but apparently yesterday became worse. He presented to the emergency room in [place]. He underwent evaluation at that time, which included CT scan of the abdomen and pelvis performed in the afternoon of April 12. This revealed an area of obvious diverticulitis involving the mid sigmoid colon. He had some extraluminal air consistent with perforation. The amount of air that was extraluminal was relatively minimal and the inflammatory change was limited to the left lower quadrant. His laboratory studies revealed that his white blood cell count was 5.7 with a hemoglobin of 13.7 with a normal differential. He was transferred to this facility and admitted by the hospitalist service. I was consulted for further recommendations regarding treatment of his diverticulitis. He gives a history of having had a colonoscopy performed in [place] about 2 years ago. He was told that he had a few small polyps that were removed. He does not recall being told he had diverticular disease. Additionally, the patient was diagnosed with lung cancer in February of 2018. He apparently underwent treatment in [place] with chemotherapy and radiation. Even though he had what was felt to be some advanced stage of cancer, he apparently has had good results with near resolution of evidence of the cancer. He has a long history of tobacco abuse, and unfortunately, in spite of his lung cancer, he continues to smoke 1 pack per day of cigarettes. PAST MEDICAL HISTORY: Significant for hypertension, COPD, diabetes mellitus, lung cancer. PAST SURGICAL HISTORY: 1. Left knee surgery. 2. Left shoulder surgery. 3. Hemorrhoid surgery. 4. Left arm surgery. CURRENT MEDICATIONS: Includes, 1. Amlodipine. 2. Lisinopril. 3. Paxil. 4. Gabapentin. 5. Breo. 6. Dulera. 7. Claritin. 8. Flonase. ALLERGIES: NO KNOWN DRUG ALLERGIES; HOWEVER, MORPHINE APPARENTLY CAUSES AGITATION. PERSONAL AND SOCIAL HISTORY: He is single, but engaged and his girlfriend is present at bedside. He has 1 child. He is retired from . REVIEW OF SYSTEMS: Ten-system review is otherwise unremarkable. FAMILY HISTORY: Noncontributory. PHYSICAL EXAMINATION: VITAL SIGNS: His temperature is 97.7. He has been afebrile during this admission. Pulse is 80 and regular. Blood pressure is 141/88. GENERAL: This is a well-developed, well-nourished, pleasant white male resting in bed, in no acute distress. He is alert and oriented x3. HEAD, EYES, EARS, NOSE, AND THROAT: Unremarkable. NECK: Supple without mass or tenderness. LUNGS: Clear to auscultation throughout. CARDIAC: Regular rate and rhythm without murmur. ABDOMEN: Protuberant with mild obesity. It is soft with the exception of the left lower quadrant, where he has focal tenderness with guarding. He has normoactive bowel sounds. EXTREMITIES: Unremarkable. LABORATORY DATA/IMAGING STUDIES: Labs and CT scan are as referenced above. ASSESSMENT: The patient with microperforated diverticulitis. I would recommend an attempt at conservative nonoperative management of this episode of diverticulitis. Should his course deteriorate, then he would require surgery, which would potentially require bowel resection with colostomy creation. In an attempt to avoid this, if his diverticulitis can be treated with antibiotics and allow this to resolve, then he could undergo elective sigmoid colectomy without colostomy creation in 6 to 8 weeks. I have discussed all this in detail with the patient as well as potential risks. He understands and agrees to proceed. I have recommended smoking cessation to help minimize the problems that this causes in regard to his diverticulitis. Job ID: [id number]
--- NOTE | 2019-04-14 13:35 | PRG ---
DATE OF SERVICE: 04/14/2019 SUBJECTIVE: Mr. Ross is seen one day after he was admitted to the hospital with microperforated diverticulitis. He is resting comfortably in bed. He tells me he is tolerating clear liquids and has been ambulating on the surgical floor. He notes that his abdominal pain seems better. OBJECTIVE: VITAL SIGNS: On examination, he is afebrile. Pulse is 80, blood pressure 125/80. LUNGS: Clear to auscultation. ABDOMEN: Normoactive bowel sounds. He still has focal tenderness with guarding in the left lower quadrant. He has no discomfort on the right side of his abdomen. LABORATORY DATA: His white blood cell count was 3.7 today, down from 4.1 yesterday. His differential still remains entirely normal. Hemoglobin is stable at 13.5. Basic metabolic panel is entirely normal. ASSESSMENT AND PLAN: In summary, he appears to be doing well with his treatment for his diverticulitis. He continues on Rocephin and Flagyl. I would continue his clear liquid diet. We can decrease his IV fluid rate a little bit. Per his request, I will order a nicotine patch also. I would anticipate improvement in the tenderness with examination, at which point, we can transition him to oral antibiotics and discharge him home. This will likely be over the next 24 to 48 hours. Job ID: [id number]
[2019-04-14] MEDS: Nicotine 14 MG PATCH TD SCH (13:44)
[2019-04-14] MEDS: metroNIDAZOLE 500 MG TAB PO SCH (17:24)
[2019-04-15] MEDS: metroNIDAZOLE 500 MG TAB PO SCH ×4 (00:09→20:45)
[2019-04-15] MEDS: Ketorolac Tromethamine 30 MG/ML VIAL IVP SCH ×4 (00:09→17:14)
[2019-04-15] MEDS: Sodium Chloride 0.9% 1,000 ML IV SCH (06:27)
[2019-04-15] MEDS: Mometasone/Formoterol 120 PUFF INHALER INH SCH ×2 (06:51→18:43)
[2019-04-15] MEDS: cefTRIAXone\\ROCEPHIN 2 GM in Sodium Chloride 0.9% 100 ML IVPB SCH (08:22)
[2019-04-15] MEDS: guaiFENesin ER 600 MG TAB PO SCH ×2 (08:22→20:44)
--- NOTE | 2019-04-15 11:45 | PDOC.PN ---
- Subjective Encounter Start Date: 04/15/19 Encounter Start Time: 11:44 Subjective: pain gone, good BM - Objective Resuscitation Status - Order Detail: 04/13/19 07:31 Resuscitation Status Routine Resuscitation Status: DNAR: NO Resuscitation Discussed with: Amirah Guzman is surrogate decision maker MAR Reviewed: Yes Vital Signs & Weight: Vital Signs (12 hours) Temp Pulse Resp BP BP Pulse Ox 04/15/19 11:00 98.4 F 71 14 176/81 H 95 04/15/19 08:22 96 04/15/19 07:25 97.9 F 82 16 152/97 H 96 04/15/19 06:49 67 14 97 04/15/19 03:50 97.7 F 77 16 146/87 H 95 04/15/19 00:51 12 Weight Weight 194 lb 8 oz I&O: 04/14/19 04/15/19 04/16/19 06:59 06:59 06:59 Intake Total 4050 4200 Balance 4050 4200 Result Diagrams: 04/14/19 07:15 04/14/19 07:15 Additional Labs: Accuchecks 04/15/19 04/15/19 04/14/19 11:11 05:51 19:57 POC Glucose 99 93 151 H 04/14/19 04/14/19 16:05 11:49 POC Glucose 135 H 124 H Phys Exam - Physical Examination Neck: no JVD Respiratory: clear to auscultation bilateral Cardiovascular: RRR, no significant murmur Gastrointestinal: soft, non-tender, positive bowel sounds Musculoskeletal: no edema Dx/Plan (1) Diverticulitis of colon with perforation Code(s): K57.20 - DVTRCLI OF LG INT W PERFORATION AND ABSCESS W/O BLEEDING Status: Acute (2) Primary lung squamous cell carcinoma Code(s): C34.90 - MALIGNANT NEOPLASM OF UNSP PART OF UNSP BRONCHUS OR LUNG Status: Chronic (3) HTN (hypertension) Code(s): I10 - ESSENTIAL (PRIMARY) HYPERTENSION Status: Chronic Qualifiers: Hypertension type: essential hypertension Qualified Code(s): I10 - Essential (primary) hypertension (4) Type 2 diabetes mellitus Status: Chronic Qualifiers: Diabetes mellitus correction insulin use: without stockroom helper use Diabetes mellitus complication status: without complication Qualified Code(s): E11.9 - Type 2 diabetes mellitus without complications - Plan cont current care -: check with Dr Alvarado re diet, tansition to po meds * .
[2019-04-15] MEDS: Nicotine 14 MG PATCH TD SCH (12:22)
[2019-04-15] MEDS: Meperidine HCl/PF 25 MG/ML VIAL SLOW IVP PRN (13:54)
[2019-04-15] MEDS ORDERED: Sodium Chloride 0.9% 1,000 ML IV SCH (15:00)
[2019-04-15] MEDS: Ciprofloxacin 500 MG TAB PO SCH (20:44)
--- NOTE | 2019-04-15 21:09 | PRG ---
DATE OF SERVICE: 04/15/2019 SUBJECTIVE: Mr. Ross is hospital day #3, following his admission for microperforated diverticulitis. He denies any pain. He tells me he feels much better. He was on clear liquids only for the first couple of days and maintained on IV antibiotics. Today, he was advanced to full liquid diet when he denied any abdominal pain. He is tolerating his full liquid diet. He did note a little bit of abdominal discomfort after taking his full liquids. He is ambulating. He is voiding well. He has not had a bowel movement. PHYSICAL EXAMINATION: VITAL SIGNS: He is afebrile. Pulse is 77 and blood pressure 145/78. LUNGS: Clear to auscultation. ABDOMEN: Soft. He now has no left lower quadrant tenderness to palpation, certainly no guarding. LABORATORY DATA: No labs were obtained today. ASSESSMENT: The patient is progressing appropriately with nonoperative treatment of his diverticulitis. I will keep him on a full liquid diet for now. I will switch him from his IV antibiotics to oral antibiotics using ciprofloxacin and Flagyl. If he continues to be pain-free tomorrow, then I would plan on discharging him home with a course of oral antibiotics. The hope would be to be able to perform an elective sigmoid colectomy in 6 to 8 weeks. Job ID: [id number]
[2019-04-16] MEDS: Ketorolac Tromethamine 30 MG/ML VIAL IVP SCH ×2 (00:12→06:52)
[2019-04-16] MEDS: Ciprofloxacin 500 MG TAB PO SCH (06:51)
[2019-04-16] MEDS: Mometasone/Formoterol 120 PUFF INHALER INH SCH (07:48)
[2019-04-16] MEDS: guaiFENesin ER 600 MG TAB PO SCH (08:45)
[2019-04-16] MEDS: metroNIDAZOLE 500 MG TAB PO SCH (08:45)
[2019-04-16 11:41] VITALS: BP 135/69; TEMP 98
[2019-04-16] MEDS ORDERED: Amlodipine 5 MG TAB PO SCH (21:00)
[2019-04-17] MEDS ORDERED: PARoxetine 20 MG TAB PO SCH (09:00)
[2019-04-17] MEDS ORDERED: Lisinopril 5 MG TAB PO SCH (09:00)
--- NOTE | 2019-04-18 01:39 | DIS ---
DATE OF ADMISSION: 04/13/2019 DATE OF DISCHARGE: 04/16/2019 PRIMARY CARE PHYSICIAN: Dr. Cristóbal Danielle. DISCHARGE DISPOSITION: Home. DISCHARGE DIAGNOSES: 1. Sigmoid diverticulitis with microperforation. 2. Hypertension. 3. History of squamous cell lung cancer, diagnosed this year. 4. Chronic obstructive pulmonary disease. 5. Diabetes mellitus type 2, diet controlled. DISCHARGE MEDICATIONS: 1. Ciprofloxacin 500 mg twice a day as well as Flagyl 500 mg t.i.d., the length of therapy to be determined by General Surgery. 2. He is also on Proventil inhaler q.4 hours as needed. 3. Paroxetine 30 mg daily. 4. Loratadine 10 mg daily. 5. Lisinopril 5 mg daily. 6. Gabapentin 600 mg daily. 7. Breo Ellipta one inhalation daily. 8. Flonase nasal spray in each naris daily. 9. Calcium carbonate one tablet daily. 10. Tessalon Perles 100 mg daily. 11. Amlodipine 5 mg twice a day. CODE STATUS: DNAR. ALLERGIES: MORPHINE. HOSPITAL COURSE: Mr. Ross is a pleasant 58-year-old gentleman, who presented to the emergency room complaining of abdominal pain and feeling bloated. This was not improved after taking Pepto-Bismol. He came to the emergency room in [place], where he was evaluated and found to have findings consistent with sigmoid diverticulitis with microperforation. He was transferred to our facility for further treatment. He was seen by General Surgery and it was felt that this could be managed conservatively. He was placed on IV antibiotics and monitored while in the hospital for a few days. He improved. His diet was advanced and he was transitioned to oral antibiotics and then subsequently discharged home on 04/16/2019, to have close outpatient followup with General Surgery in 1 to 2 weeks. Job ID: [id number]
== END 2019-04-16 12:27 | disposition home or self-care (01) | DRG 392 ==
LOC: ERS 21:03 → SURG A 04-13 00:25
PROVIDERS: ADMIT Internal Medicine; ATTEND Internal Medicine
DX: K57.20 Diverticulitis of large intestine with perforation and abscess without bleeding (principal); C34.90 Malignant neoplasm of unspecified part of unspecified bronchus or lung; I10 Essential (primary) hypertension; Z66 Do not resuscitate; J44.9 Chronic obstructive pulmonary disease, unspecified; E11.9 Type 2 diabetes mellitus without complications; F17.210 Nicotine dependence, cigarettes, uncomplicated; Z92.3 Personal history of irradiation; Z92.21 Personal history of antineoplastic chemotherapy; Z98.890 Other specified postprocedural states
CPT/HCPCS: 36415; 36416; 71046; 80048; 80053; 85025; 93005; 93010; 94640; 96374; J0696; J1815; J1885; J2175; J3010; J3490; J7620

== ENCOUNTER 2019-06-22 05:52 | Inpatient (IN) | payer OTHER ==
[2019-06-21 11:53] VITALS: BMI 29.5
[2019-06-22] MEDS ORDERED: cefOXitin 2 GM VIAL ONE (06:34)
[2019-06-22] MEDS ORDERED: Sodium Chloride 0.9% 100 ML ONE (06:34)
[2019-06-22] MEDS ORDERED: Ketorolac Tromethamine 30 MG/ML VIAL ONE ×2 (06:34→12:31)
[2019-06-22] MEDS ORDERED: Midazolam HCl 2 mg/2 ml Vial ONE ×2 (06:35→07:28)
[2019-06-22] MEDS ORDERED: Fentanyl 100 MCG/2 ML VIAL ONE ×5 (06:35→15:45)
[2019-06-22 06:37] LABS: #Eosinphils 0.2 thou/uL (0.0-0.7); #Lymphocytes 1.6 thou/uL (1.20-3.40); #Monocytes 0.6 thou/uL (0.11-0.59); #Neutrophils 3.9 thou/uL (1.40-6.50); %Basophils 0.6 % (0.0-1.0); %Eosinophils 2.5 % (0.0-10.0); %Monocytes 9.9 % (0.0-10.0); Hemoglobin 15.2 g/dL (14.0-18.0); Mean Corpuscular HGB CONC 34.6 g/dL (32.0-36.0); Mean Corpuscular Hemoglobin 32.4 pg (27.0-31.0); Mean Corpuscular Volume 93.5 fL (78.0-98.0); Mean Platelet Volume 6.6 fL (7.4-10.4); Platelet Count 271 thou/uL (130-400); RBC Distribution Width 12.9 % (11.5-14.5); Red Blood Cell (RBC) Count 4.68 mill/uL (4.70-6.10); White Blood Cell (WBC) Count 6.3 thou/uL (4.8-10.8)
[2019-06-22 06:44] LABS: Hemoglobin A1c 5.6 % (4.0-6.0)
[2019-06-22] MEDS ORDERED: Lidocaine 1% w/Epinephrine 1:100K 20 ML VIAL ONE (06:44)
[2019-06-22] MEDS ORDERED: Bupivacaine/Epinephrine 0.25% 30 ML VIAL ONE (06:44)
[2019-06-22 06:57] LABS: Anion Gap 14 mmol/L (10-20); BUN (Urea Nitrogen) 11 mg/dL (8.4-25.7); Calc. Creatinine Clearance 98 mL/min (70-130); Calcium 9.2 mg/dL (7.8-10.44); Carbon Dioxide 24 mmol/L (22-29); Chloride 106 mmol/L (98-107); Estimated GFR-MDRD 76; Glucose 102 mg/dL (70-105); Potassium 3.7 mmol/L (3.5-5.1); Sodium 140 mmol/L (136-145)
[2019-06-22] MEDS ORDERED: Ketamine 50 MG/ML (10ML VIAL) ONE (07:03)
[2019-06-22] MEDS ORDERED: Rocuronium Bromide 10 MG/ML (10ML VIAL) ONE (08:00)
[2019-06-22] MEDS ORDERED: Ondansetron PF 4 MG/2 ML Vial ONE (08:00)
[2019-06-22] MEDS ORDERED: Esmolol 100 MG/10 ML VIAL ONE (08:00)
[2019-06-22] MEDS ORDERED: Lidocaine 1% PF 5 ML VIAL ONE (08:00)
[2019-06-22] MEDS ORDERED: Dexamethasone 20 MG/5 ML VIAL ONE (08:00)
[2019-06-22] MEDS ORDERED: PROPOFOL 200 MG/20 ML VIAL ONE (08:00)
[2019-06-22] MEDS ORDERED: PHENYLEPHRINE-NS 100 MCG/ML 10 ML SYRINGE ONE (08:00)
[2019-06-22] MEDS ORDERED: Phenylephrine HCL 10 MG/ML VIAL ONE (09:44)
[2019-06-22] MEDS ORDERED: hydrALAZINE 20 MG/ML VIAL SLOW IVP PRN (10:53)
[2019-06-22] MEDS ORDERED: Promethazine HCl 25 MG/ML VIAL IM PRN ×2 (10:53→11:00)
[2019-06-22] MEDS ORDERED: Ondansetron PF 4 MG/2 ML Vial IVP PRN (10:53)
[2019-06-22] MEDS ORDERED: Ondansetron HCl/PF 4 MG/2 ML Vial IVP PRN (11:00)
[2019-06-22] MEDS ORDERED: HYDROmorphone 2 MG/ML VIAL SLOW IVP PRN (11:00)
[2019-06-22] MEDS ORDERED: Promethazine HCl 25 MG/ML VIAL SLOW IVP PRN (11:00)
[2019-06-22] MEDS ORDERED: SUGAMMADEX SODIUM 500 MG/5 ML VIAL ONE (11:02)
[2019-06-22] MEDS ORDERED: Bupivacaine HCl 0.5%/Epinephrine 1:200,000/PF 30 ml Vial ONE (11:45)
[2019-06-22] MEDS: Acetaminophen 1,000 MG in Premix Bag 1 BAG IVPB SCH ×3 (15:23→23:26)
[2019-06-22] MEDS: Ketorolac Tromethamine 30 MG/ML VIAL IVP SCH ×3 (15:23→23:26)
[2019-06-22] MEDS: D5 1/2 NS w/20 mEq KCL 1,000 ML IV SCH ×2 (16:16→19:12)
[2019-06-22] MEDS: Morphine 2 MG/ML SYRINGE SLOW IVP PRN (19:10)
[2019-06-22] MEDS: Enoxaparin Sodium 40 MG/0.4 ML SYRINGE SC SCH (20:40)
[2019-06-22] MEDS: Famotidine 20 MG TAB PO SCH (20:40)
[2019-06-22] MEDS: Famotidine/PF 20 mg/2ml Vial SLOW IVP SCH (23:20)
[2019-06-23] MEDS: Ketorolac Tromethamine 30 MG/ML VIAL IVP SCH ×3 (05:44→17:36)
[2019-06-23] MEDS: Acetaminophen 1,000 MG in Premix Bag 1 BAG IVPB SCH (05:44)
[2019-06-23 05:49] LABS: #Basophils 0.1 thou/uL (0.0-0.2); #Monocytes 0.4 thou/uL (0.11-0.59); #Neutrophils 9.8 thou/uL (1.40-6.50); %Basophils 0.6 % (0.0-1.0); %Eosinophils 0.1 % (0.0-10.0); %Monocytes 3.9 % (0.0-10.0); %Neutrophils 86.4 % (42.0-75.0); Hemoglobin 13.5 g/dL (14.0-18.0); Mean Corpuscular HGB CONC 32.8 g/dL (32.0-36.0); Mean Corpuscular Hemoglobin 31.4 pg (27.0-31.0); Mean Corpuscular Volume 95.6 fL (78.0-98.0); Mean Platelet Volume 7.1 fL (7.4-10.4); Platelet Count 249 thou/uL (130-400); RBC Distribution Width 12.7 % (11.5-14.5); White Blood Cell (WBC) Count 11.4 thou/uL (4.8-10.8)
[2019-06-23] MEDS: D5 1/2 NS w/20 mEq KCL 1,000 ML IV SCH ×3 (05:50→16:03)
[2019-06-23 06:09] LABS: Anion Gap 9 mmol/L (10-20); BUN (Urea Nitrogen) 10 mg/dL (8.4-25.7); Calc. Creatinine Clearance 129 mL/min (70-130); Calcium 8.8 mg/dL (7.8-10.44); Carbon Dioxide 24 mmol/L (22-29); Chloride 107 mmol/L (98-107); Estimated GFR-MDRD Greater than 90; Glucose 157 mg/dL (70-105); Potassium 4.1 mmol/L (3.5-5.1); Sodium 136 mmol/L (136-145)
[2019-06-23] MEDS: Famotidine/PF 20 mg/2ml Vial SLOW IVP SCH ×2 (09:30→20:45)
[2019-06-23] MEDS: Famotidine 20 MG TAB PO SCH ×2 (09:33→20:44)
--- NOTE | 2019-06-23 14:27 | PRG ---
DATE OF SERVICE: 06/23/2019 SUBJECTIVE: Mr. Ross is postoperative day #1 from laparoscopic sigmoid colectomy. He tells me he is doing "great." He took one dose of morphine last night, but this caused him itching and he has required no more. He has tolerated his clear liquid diet uneventfully. He tells me he has passed flatus, but has not yet had a bowel movement. He is ambulating regularly. His Lema catheter was removed this morning. He has been voiding uneventfully. OBJECTIVE: VITAL SIGNS: He is afebrile. Pulse is 70 and blood pressure 144/80. LUNGS: Clear to auscultation. ABDOMEN: Soft with normal bowel sounds. Laparoscopic incisions are healing nicely with Dermabond intact. EXTREMITIES: Unremarkable. LABORATORY DATA: His CBC shows a stable hemoglobin of 13.5. Chemistry panel shows unremarkable electrolytes. ASSESSMENT: The patient is doing very well following sigmoid colectomy for history of recently perforated sigmoid diverticulitis. I will advance him to full liquid diet and decrease his IV fluid rate. He tells me he believes he is ready to go home now, but I would recommend he stay until tomorrow to make sure that he continues to tolerate adequate oral intake. I would plan on discharging home tomorrow when he is postoperative day #2. I will advance him to a full liquid diet now. Job ID: [id number]
[2019-06-23] MEDS: Enoxaparin Sodium 40 MG/0.4 ML SYRINGE SC SCH (20:44)
[2019-06-23] MEDS: Morphine 2 MG/ML SYRINGE SLOW IVP PRN (20:50)
[2019-06-24] MEDS: D5 1/2 NS w/20 mEq KCL 1,000 ML IV SCH (00:16)
[2019-06-24] MEDS: Ketorolac Tromethamine 30 MG/ML VIAL IVP SCH ×3 (00:16→12:28)
[2019-06-24] MEDS: Morphine 2 MG/ML SYRINGE SLOW IVP PRN (01:08)
[2019-06-24] MEDS: Morphine 4 MG/ML VIAL SLOW IVP PRN ×2 (02:05→05:20)
[2019-06-24] MEDS: Famotidine/PF 20 mg/2ml Vial SLOW IVP SCH (08:53)
[2019-06-24] MEDS: Famotidine 20 MG TAB PO SCH (09:01)
[2019-06-24 16:32] VITALS: BP 107/77; TEMP 98.2
--- NOTE | 2019-06-25 12:58 | OP ---
DATE OF PROCEDURE: 06/22/2019 PREOPERATIVE DIAGNOSIS: Sigmoid diverticulitis with a recent history of perforation. POSTOPERATIVE DIAGNOSIS: Sigmoid diverticulitis with a recent history of perforation. OPERATION PERFORMED: Laparoscopic sigmoid colectomy with splenic flexure mobilization. ANESTHESIA: General endotracheal. INDICATIONS: The patient is a 59-year-old white male. He was recently hospitalized with a perforated sigmoid diverticulitis. He returns at this time for elective resection of this diseased segment of the sigmoid colon. DESCRIPTION OF OPERATION: Informed consent was obtained. The patient was taken to the operating room, where general endotracheal anesthesia was obtained with the patient in supine position. Abdomen was prepped with ChloraPrep and draped in sterile fashion. Local anesthetic was infiltrated. A 5 mm supraumbilical incision was created through which Veress needle was passed into the peritoneal cavity and pneumoperitoneum was established using carbon dioxide up to pressure of 15 mmHg. A 5 mm trocar port was passed through the same incision. Laparoscopic camera was passed through this port. Under direct vision, a 12 mm right lower quadrant port was placed as well. Attention was turned to the sigmoid colon. With the patient in Trendelenburg position, the area of the diseased colon could easily visualize. It was fairly densely adherent to the left lateral pelvic wall. The colon just proximal to this appeared to be entirely normal. I selected an extraction site in the left lower quadrant and created an 8 cm oblique incision. Muscle-splitting technique was used to gain access into the peritoneal cavity. The [place] wound retractor was placed followed by the GelPort. With the left hand in the abdomen, I began dissecting the colon. I incised the white line of Toldt of the left colon and then followed this down towards the inflamed segment of sigmoid colon. Although this was inflamed and adherent, it was mobilized relatively easily from the lateral pelvic wall. Dissection was carried distally along the colon. The peritoneum was incised on either side of the rectum to gain rectal mobility. Attention was returned to the left colon. I dissected retrograde along the lateral aspect of the left colon up to the splenic flexure and fully mobilized the splenic flexure. This was all carried out with the LigaSure dissection device. The mesentery of the left colon and sigmoid colon was elevated off the underlying fascia. I turned my attention to the rectosigmoid colon distal to the obviously diseased segment. I dissected a mesenteric window at the level of the rectosigmoid junction and the colon was divided with a single fire of the blue load of the [place] stapler. The mesentery was then dissected retrograde using the LigaSure device. When the diseased segment of the colon was fully mobilized, I discerned a segment of the descending colon that would easily reach down to the rectosigmoid staple line. This was marked. The colon was then delivered extracorporeally through the wound retractor. Using segregated instruments and towels surrounding the area of the colon, an enterotomy was created in the candid division site. EEA sizers were used to determine the internal lumen. I selected a 31 mm EEA stapler and the anvil was obtained, passed through the enterotomy several centimeters proximally and out of the antimesenteric wall. The enterotomy was then excluded incontinuity with the resected segment with a final firing of the [place] stapler. The colon was passed off the field. The segregated instruments were passed off and gloves were changed. The spike was cleansed with Betadine. A 3-0 Prolene pursestring was placed around the anvil and the anvil was dropped down to the abdominal cavity. From below, EEA sizers were passed up through the rectum up to the staple line. The 31 mm stapler was then passed up to the staple line and the spike was advanced through the staple line. It was mated into the anvil in the proximal segment of colon. The two segments were approximated and anastomosed by firing the stapler. The donuts were inspected and found to be intact. The anastomosis was checked to make sure it was airtight by insufflating using the proctoscope while under water. There was no evidence of air leak. The irrigant within the abdomen was aspirated. All areas of dissection were inspected and found to be hemostatic. All ports and instruments were removed under direct vision. The fascia at the 12 mm port site was closed with 0 Vicryl suture using a GraNee needle. The abdominal wall was cleansed with saline and all laparoscopic instrumentation was removed from the field. The wound retractor was removed as well. Gowns and gloves were then changed and sterile towels were placed around the abdominal operative site. The fascia was closed in 2 layers using a running suture of #1 PDS. The wound was copiously irrigated with 2 L of irrigant. The remainder of the wound was closed in layers with 3-0 and 4-0 Vicryl. The port sites were closed with 4-0 Monocryl. Dermabond was placed externally. There were no complications. Blood loss was negligible. The patient tolerated the procedure well and was taken to recovery room in stable condition. Job ID: [id number]
== END 2019-06-24 17:09 | disposition home or self-care (01) | DRG 331 ==
LOC: SURG A 05:52
PROVIDERS: ADMIT Specialist; ATTEND Specialist
PROC: 0DBN4ZZ Excision of Sigmoid Colon, Percutaneous Endoscopic Approach (ICD-10-PCS; principal; 2019-06-22)
DX: K57.32 Diverticulitis of large intestine without perforation or abscess without bleeding (principal); I10 Essential (primary) hypertension; I25.10 Atherosclerotic heart disease of native coronary artery without angina pectoris; E11.9 Type 2 diabetes mellitus without complications; J44.9 Chronic obstructive pulmonary disease, unspecified; G47.33 Obstructive sleep apnea (adult) (pediatric); M19.91 Primary osteoarthritis, unspecified site; F17.200 Nicotine dependence, unspecified, uncomplicated; Z88.5 Allergy status to narcotic agent; Z88.8 Allergy status to other drugs, medicaments and biological substances; Z86.73 Personal history of transient ischemic attack (TIA), and cerebral infarction without residual deficits; Z79.899 Other long term (current) drug therapy; F20.9 Schizophrenia, unspecified; E78.00 Pure hypercholesterolemia, unspecified
CPT/HCPCS: 36415; 36416; 80048; 83036; 85025; 88307; J0131; J0694; J1650; J1885; J2001; J2250; J2270; J2370; J3010; J3490

== ENCOUNTER 2019-07-04 21:13 | Inpatient (IN) | payer OTHER ==
[~2019-07-04 21:13] MED LIST: Iopamidol 370 76% 100 ML VIAL ONE
[2019-07-04] MEDS ORDERED: Fentanyl 100 MCG/2 ML VIAL ONE (21:57)
--- NOTE | 2019-07-04 22:17 | CT ---
CT ABDOMEN AND PELVIS WITH IV CONTRAST 07/04/2019 CLINICAL INFORMATION: Fever and abdominal pain with onset of symptoms one day ago. Dysuria. Patient states he had several p olyps removed from: March 22, 2019. COMPARISON: 04/12/2019 Technique: Multiple contiguous axial CT images are obtained through the abdomen and pelvis with IV contrast. Cor onal reformatted images are provided. FINDINGS: Lower Chest: There is dependent atelectasis at the left lung base. A 7 mm pulmonary nodule is seen at the right lateral costophrenic angle which is stable from prior exam. A trace pericardial effusion is seen. Vessels: Dense vascular calcifications are again seen in the abdominal aorta and involving the iliac arteries. Abdomen: Portal vein:Patent Gallbladder: Within normal limits for CT imaging. Liver: Calcified granulomata are seen. There several very tiny subcentimeter too small to characteriz e hypodense lesions again noted in the right hepatic lobe. Spleen: within normal limits. Pancreas: within normal limits. Adrenals: within normal limits. Kidneys: A tiny subcentimeter too small to characterize hypodense lesion is again seen in the midport ion of the left kidney. There is a partially calcified splenic artery aneurysm on the right measuring 1.2 cm stable in size from prior study. Bowel: There is radiopaque suture seen in the region of the sigmoid colon suggesting prior partial co lectomy. Colonic diverticuli are seen. There is a fluid and gas collection seen medial to the descending colon measuring 10 cm cranial caudal x7.3 cm transverse x4.6 cm AP in greatest dimensions with adjacent inflammatory stranding. There is also evidence of free intraperitoneal gas seen in the left upper quadrant. Foci of free gas are also seen in the left paracolic gutter adjacent to the fluid and gas collection. These findings are suggestive of bowel perforation likely from the descending or sigmoid colon with associated contained perforation versus abscess collection with mult iple foci of free intraperitoneal gas thinning into the left upper quadrant. There is also gas extending into the visualized lower mediastinum. Appendix: The appendix is visualized and normal in caliber. Mesentery and Retroperitoneum: No enlarged mesenteric or retroperitoneal lymph nodes. Abdominal Wall: There is inflammatory stranding seen within the subcutaneous soft tissues of the left mid and lower abdominal wall into much lesser extent on the right. Pelvis: Reproductive Organs: No pelvic masses. Pelvis within normal limits. Bladder: Decompressed. Bones: Degenerative changes are again seen in the lower lumbar spine. IMPRESSION: 1. Interval postsurgical changes of the colon likely due to partial resection of a portion of the col on. There is now foci of free peritoneal gas adjacent to the region of the descending and sigmoid colon with a larger thin-walled fluid and gas collection just medial to the descending colon which ma y represent a contained perforation or developing abscess collection. There is also evidence of free intraperitoneal gas adjacent to the colon as well as extending into the left upper quadrant and into the lower mediastinum posteriorly. Findings are suggestive of perforation of bowel and likely related to perforation of the colon. There are inflammatory changes seen adjacent to the colon in the left pelvis just above the level of postsurgical change. 2. Trace pericardial effusion. 3. Stable pulmonary nodule right lower lobe. 4. Additional findings as described above. 5. Above findings discussed with Dr. Benson in the emergency department on 07/04/2019 at 2214 hours.
[2019-07-04] MEDS ORDERED: Morphine 2 MG/ML SYRINGE ONE (23:08)
[2019-07-04 23:47] VITALS: BMI 26.5
[2019-07-05] MEDS: Dextrose 5 %-0.45 % NaCl 1,000 ML IV SCH ×2 (00:51→08:35)
[2019-07-05] MEDS: Morphine 2 MG/ML SYRINGE SLOW IVP PRN ×5 (00:55→18:00)
[2019-07-05] MEDS ORDERED: MEROPENEM 1 GM/50 ML 1 GM in Premix Bag 1 BAG IVPB SCH (04:00)
[2019-07-05] MEDS ORDERED: Dextrose 5% in Water 1,000 ML IV PRN (09:16)
[2019-07-05] MEDS ORDERED: Dextrose 50% Abboject 50 ML SYRINGE SLOW IVP PRN (09:16)
[2019-07-05] MEDS ORDERED: Ondansetron PF 4 MG/2 ML Vial IVP PRN (09:16)
[2019-07-05] MEDS ORDERED: Ondansetron ODT 4 MG TAB PO PRN (09:16)
[2019-07-05] MEDS ORDERED: PROVENTIL INHALER 6.7 G (200 INHALATIONS) INH PRN (09:27)
[2019-07-05 11:55] LABS: INR-International Normal Ratio 1.1; PTT 26.5 SEC (22.9-36.1); Prothrombin Time 14.6 SEC (12.0-14.7)
[2019-07-05] MEDS: Meropenem 2 GM, Admixture Fee 1 EACH in Sodium Chloride 0.9% 100 ML IVPB SCH ×2 (12:27→19:17)
--- NOTE | 2019-07-05 12:27 | HP ---
CHIEF COMPLAINT: Intra-abdominal abscess. HISTORY OF PRESENT ILLNESS: The patient is a 59-year-old white male. He is status post laparoscopic sigmoid colectomy on June 22. This was performed in treatment of a recent hospitalization with microperforated sigmoid diverticulitis. His surgery was uneventful and he seems to do well following his surgery and was discharged home on postoperative day #2. He has been at home since the surgery (13 days ago). About 2 days ago, he tells me he started feeling badly and began vomiting. Yesterday, when his symptoms persisted, he presented to the emergency room in [place]. A CT scan was performed there revealing some foci of free air in the upper abdomen as well as an intra-abdominal abscesses located along the medial aspect of the left colon. This seemed to be significantly superior to his sigmoid colon anastomosis. He was started on IV antibiotics and admitted to my service. This morning, he tells me he feels stable. He has a sensation of "gas" on his abdomen. He notes that he has had normal bowel function since discharged home. He has been eating well and felt well until 2 days ago. Of note, he continues to smoke. PAST MEDICAL HISTORY: 1. COPD. 2. Hypercholesterolemia. 3. Diverticulitis. 4. History of lung cancer. PAST SURGICAL HISTORY: None prior to this recent operation. MEDICATIONS: Include, 1. Amlodipine. 2. Gabapentin. 3. Lisinopril. 4. Flonase. ALLERGIES: TYLENOL WITH CODEINE. PERSONAL AND SOCIAL HISTORY: He still smokes close to a pack per day. He is , but apparently engaged to be . He has 1 child. REVIEW OF SYSTEMS: Otherwise unremarkable. FAMILY HISTORY: Noncontributory. PHYSICAL EXAMINATION: VITAL SIGNS: Since hospitalization, this last night revealed a temperature of 100.6 with pulse of 94, blood pressure of 103/62. GENERAL: Well-developed, well-nourished white male, resting in bed, in no acute distress. He is alert and oriented x3. HEAD, EYES, EARS, NOSE, AND THROAT: Unremarkable. NECK: Supple without mass or tenderness. LUNGS: Clear to auscultation throughout. CARDIAC: Regular rate and rhythm without murmur. ABDOMEN: Soft. He has mild diffuse discomfort. There is no real focus of define tenderness. He has normoactive bowel sounds throughout. Laparoscopic incisions are nicely healed without evidence of infection. LABORATORY DATA: His CBC from last night reveals a white blood cell count of 9.9 with a hemoglobin of 12.2. He does have a left shift. Chemistries reveal unremarkable electrolytes. BUN and creatinine are both normal. Liver function tests are normal as well. His lactate level was normal. ASSESSMENT AND PLAN: The patient with an intra-abdominal abscess on the left side of his abdomen, although this is near the medial aspect of the left colon, this does appear to potentially be amenable to drainage through a posterolateral approach. There are some foci of free air in the upper abdomen also, and I suspect that these are related to whatever perforation led to this abscess. There is no fluid in that area. I suspect that he does not require surgery to evaluate or treat this, and would instead recommend a CT-guided drainage with IV antibiotics and observation. I spoke with Radiology this morning. A CT scan with rectal contrast will be performed to evaluate the anastomosis and plan for a CT-guided drainage of abscess. Job ID: [id number]
[2019-07-05] MEDS: D5 1/2 NS w/20 mEq KCL 1,000 ML IV SCH ×2 (12:31→16:55)
[2019-07-05] MEDS ORDERED: Fentanyl 100 MCG/2 ML VIAL ONE (13:37)
[2019-07-05] MEDS ORDERED: Sodium Bicarbonate 2.5 MEQ/5 ML VIAL ONE (13:37)
[2019-07-05] MEDS ORDERED: Midazolam HCl 2 mg/2 ml Vial ONE (13:38)
--- NOTE | 2019-07-05 14:46 | CT ---
ABDOMEN AND PELVIC CT SCAN WITH CONTRAST: HISTORY: Contained perforation of the bowel, recent colonic surgery with [place]-colonic anastomosis. COMPARISON: None. FINDINGS: Patchy opacities of the lung bases likely relate to atelectasis. Liver: Scattered punctate hypodensities are too small to definitively characterize. Granulomatous alison cification. Gallbladder: Contracted with increased intraluminal density, likely vicarious excretion of contrast. Pancreas: Unremarkable. Spleen: Unremarkable. Adrenal glands: Unremarkable. Kidneys: No renal calculus or acute obstruction. Punctate hypoattenuation of the left kidney is to o small to definitively characterize. Bowel: Redemonstration of acute inflammation of the distal, perioperative colon about site of anastom osis, with a large adjacent extraluminal collection containing air and fluid. There is inflammatory wall thickening of the distal descending colon and sigmoid colon. Urinary Bladder: The urinary bladder is unremarkable. Adenopathy: No adenopathy within the abdomen or pelvis. Free Air: Disseminated free air ascending to the imaged mediastinum remains. Ascites: Inflammatory ascites of the low abdomen/pelvis has slightly progressed. Osseous structures: No interval acute osseous abnormalities. IMPRESSION: Redemonstration of abscess collection adjacent the inflamed sigmoid colon, cephalad to site of anasto mosis. Redemonstration of pneumoperitoneum, and progressive, inflammatory ascites of the low abdomen/pelvis. Transcribed Date/Time: 07/05/2019 3:09 PM
--- NOTE | 2019-07-05 16:43 | CT ---
CT GUIDED ABDOMINAL ABSCESS DRAINAGE: CLINICAL HISTORY: Recent colonic resection and anastomosis with pericolonic abscess. PROCEDURE: Informed consent was obtained and the patient was escorted to the procedural suite, placed in prone p osition. Conscious sedation for a total of 60 minutes was performed, administered by the radiology nurse, with the patient consistently monitored throughout the duration of the exam in stable conditio n. The patient's skin was prepped and draped in a standard sterile fashion and topical anesthesia with buffered 1% lidocaine was performed. After a small skin incision was made, a 19-gauge needle was advanced to the leading edge of the left lower quadrant abscess, and advanced into the central portion. Inner stylette was removed and was exchanged for Amplatz wire which was coiled within the ab scess. After adequate placement was confirmed with CT fluoroscopic imaging, needle was removed, and was exchanged for 8 [place] all purpose drainage catheter which was advanced over the Amplatz wire, co iled within the abscess, and secured to the patient's posterior right lower abdominal wall. Specimen was aspirated and sent to laboratory for analysis. Imaging was stored for documentation. No unexpected procedural complications were present. The patient was then returned to the hospital [facility] in stable condition. FINDINGS: Deployed, coiled drainage catheter within abscess cavity of the left lower quadrant. IMPRESSION: Technically successful CT-guided abdominal abscess drainage, with secured placement of 8 [place] all-p urpose drainage catheter, coiled within the left lower quadrant abscess.
[2019-07-05] MEDS ORDERED: Iopamidol 370 76% 50 ML VIAL FS ONE (17:03)
[2019-07-05] MEDS ORDERED: Iopamidol 370 76% 100 ML VIAL ONE (17:03)
[2019-07-05 17:30] LABS: BF Color White; Body Fluid Source Abscess Fluid; Clarity Cloudy/Turbid (Clear)
[2019-07-05 17:33] LABS: Tube # EDTA
[2019-07-05] MEDS: Mometasone/Formoterol 120 PUFF INHALER INH SCH (18:49)
[2019-07-05] MEDS: HYDROcodone/Acetaminophen 10/325 mg Tablet PO PRN (19:16)
[2019-07-05] MEDS: Enoxaparin Sodium 30 MG/0.3 ML SYRINGE SC SCH (21:27)
[2019-07-05] MEDS: Morphine 4 MG/ML VIAL SLOW IVP PRN (21:28)
[2019-07-05] MEDS: Famotidine 20 MG TAB PO SCH (21:28)
[2019-07-05] MEDS: Famotidine/PF 20 mg/2ml Vial SLOW IVP SCH (21:30)
[2019-07-05] MEDS: Nicotine 21 MG PATCH TOP SCH (21:30)
[2019-07-05] MEDS: Amlodipine 5 MG TAB PO SCH (21:32)
[2019-07-06] MEDS: Morphine 4 MG/ML VIAL SLOW IVP PRN ×2 (00:06→02:08)
[2019-07-06] MEDS: D5 1/2 NS w/20 mEq KCL 1,000 ML IV SCH ×2 (02:09→12:02)
[2019-07-06] MEDS: Meropenem 2 GM, Admixture Fee 1 EACH in Sodium Chloride 0.9% 100 ML IVPB SCH ×3 (04:22→20:22)
[2019-07-06] MEDS: HYDROcodone/Acetaminophen 10/325 mg Tablet PO PRN ×3 (04:32→20:24)
[2019-07-06 05:05] LABS: #Eosinphils 0.1 thou/uL (0.0-0.7); #Lymphocytes 1.1 thou/uL (1.20-3.40); #Monocytes 0.4 thou/uL (0.11-0.59); #Neutrophils 3.6 thou/uL (1.40-6.50); %Basophils 0.7 % (0.0-1.0); %Eosinophils 2.1 % (0.0-10.0); %Lymphocytes 21.1 % (21.0-51.0); %Monocytes 8.2 % (0.0-10.0); %Neutrophils 67.9 % (42.0-75.0); Hemoglobin 11.9 g/dL (14.0-18.0); Mean Corpuscular HGB CONC 32.9 g/dL (32.0-36.0); Mean Corpuscular Hemoglobin 31.5 pg (27.0-31.0); Mean Corpuscular Volume 95.5 fL (78.0-98.0); Mean Platelet Volume 6.7 fL (7.4-10.4); Platelet Count 394 thou/uL (130-400); RBC Distribution Width 12.5 % (11.5-14.5); Red Blood Cell (RBC) Count 3.78 mill/uL (4.70-6.10); White Blood Cell (WBC) Count 5.3 thou/uL (4.8-10.8)
[2019-07-06 05:12] LABS: Anion Gap 10 mmol/L (10-20); BUN (Urea Nitrogen) 7 mg/dL (8.4-25.7); Calc. Creatinine Clearance 114 mL/min (70-130); Calcium 8.4 mg/dL (7.8-10.44); Carbon Dioxide 28 mmol/L (22-29); Chloride 99 mmol/L (98-107); Estimated GFR-MDRD Greater than 90; Glucose 93 mg/dL (70-105); Potassium 4.1 mmol/L (3.5-5.1); Sodium 133 mmol/L (136-145)
[2019-07-06] MEDS: Mometasone/Formoterol 120 PUFF INHALER INH SCH ×2 (07:26→18:29)
[2019-07-06] MEDS: Lisinopril 5 MG TAB PO SCH (09:06)
[2019-07-06] MEDS: PARoxetine 20 MG TAB PO SCH (09:06)
[2019-07-06] MEDS: Amlodipine 5 MG TAB PO SCH ×2 (09:06→20:24)
[2019-07-06] MEDS: Loratadine 10 MG TAB PO SCH (09:06)
[2019-07-06] MEDS: Gabapentin 300 MG CAP PO SCH (09:06)
[2019-07-06] MEDS: Famotidine 20 MG TAB PO SCH ×2 (09:06→20:24)
[2019-07-06] MEDS: Morphine 2 MG/ML SYRINGE SLOW IVP PRN ×3 (09:10→15:58)
[2019-07-06] MEDS: Famotidine/PF 20 mg/2ml Vial SLOW IVP SCH ×2 (09:13→20:26)
[2019-07-06] MEDS ORDERED: D5 1/2 NS w/20 mEq KCL 1,000 ML IV SCH (15:00)
[2019-07-06] MEDS ORDERED: Morphine 2 MG/ML SYRINGE SLOW IVP PRN (16:04)
--- NOTE | 2019-07-06 16:29 | PRG ---
DATE OF SERVICE: 07/06/2019 SUBJECTIVE: Mr. Ross remains on the surgical floor. He is postoperative day #14 from his laparoscopic sigmoid colectomy. He is postoperative day #[address]-guided drainage of a left-sided abscess. The Gram stain of the contents reveals gram-positive and gram-variable rods. The cultures show gram-negative rods, but it is not speciated yet. It will probably be E. coli. The patient tells me he is feeling well. He is tolerating his clear liquids. He is hungry for more. He tells me he has had a bowel movement today and passed gas. The drain in his left flank has drained 90 mL overnight and has drained 30 mL thus far today. It is a sort of dark creamy-looking material. It is being flushed regularly. OBJECTIVE: VITAL SIGNS: Temperature is 98.7, pulse is 72, blood pressure 125/69. LUNGS: Clear to auscultation. ABDOMEN: Shows normoactive bowel sounds. Laparoscopic incisions are nicely healed. There is no significant tenderness to palpation anteriorly. BACK: Dressing is intact over the drain in his left flank. LABORATORY DATA: White blood cell count is normal at 5.3 with a normal differential, hemoglobin level is 11.9. Chemistry panel reveals essentially normal electrolytes. ASSESSMENT AND PLAN: He is doing well following CT-guided drainage of the intraabdominal abscess. It is of course not certain at this time whether this is from an anastomotic leak or some other etiology such as a more proximal perforation or perhaps some injury that occurred at the time of his surgery. Either way, he appears to be doing well with current treatment. I will continue a course of intravenous antibiotics and drain management. If he seems to be stable, I would anticipate advancing his diet tomorrow. He understands that if this persists, there is a possibility that he could require diversion if this appears to be an anastomotic issue. Job ID: [id number]
[2019-07-06] MEDS: Acetaminophen 1,000 MG in Premix Bag 1 BAG IVPB SCH ×2 (18:26→23:51)
[2019-07-06] MEDS: Ketorolac Tromethamine 30 MG/ML VIAL IVP SCH ×2 (18:27→23:51)
[2019-07-06] MEDS: Enoxaparin Sodium 30 MG/0.3 ML SYRINGE SC SCH (20:23)
[2019-07-06] MEDS: Nicotine 21 MG PATCH TOP SCH (20:24)
[2019-07-07] MEDS: Cyclobenzaprine 10 MG TAB PO PRN ×2 (01:14→23:37)
[2019-07-07] MEDS: Meropenem 2 GM, Admixture Fee 1 EACH in Sodium Chloride 0.9% 100 ML IVPB SCH ×3 (04:01→20:18)
[2019-07-07] MEDS: Ketorolac Tromethamine 30 MG/ML VIAL IVP SCH ×4 (05:12→23:37)
[2019-07-07] MEDS: Acetaminophen 1,000 MG in Premix Bag 1 BAG IVPB SCH ×2 (06:36→17:56)
[2019-07-07] MEDS: Mometasone/Formoterol 120 PUFF INHALER INH SCH ×2 (07:38→19:27)
[2019-07-07] MEDS: PARoxetine 20 MG TAB PO SCH (09:56)
[2019-07-07] MEDS: HYDROcodone/Acetaminophen 10/325 mg Tablet PO PRN ×2 (09:57→21:15)
[2019-07-07] MEDS: Gabapentin 300 MG CAP PO SCH (09:58)
[2019-07-07] MEDS: Famotidine 20 MG TAB PO SCH ×2 (09:58→20:19)
[2019-07-07] MEDS: Loratadine 10 MG TAB PO SCH (09:58)
[2019-07-07] MEDS: Amlodipine 5 MG TAB PO SCH ×2 (11:44→20:19)
[2019-07-07] MEDS: Lisinopril 5 MG TAB PO SCH (11:52)
[2019-07-07] MEDS: Famotidine/PF 20 mg/2ml Vial SLOW IVP SCH ×2 (11:52→20:20)
--- NOTE | 2019-07-07 19:24 | PRG ---
DATE OF SERVICE: 07/07/2019 SUBJECTIVE: Mr. Ross remains in the hospital on the surgical floor. He is postoperative day #15 from laparoscopic sigmoid colectomy and postoperative day #[address]-guided drainage of left-sided abdominal abscess. He tells me he feels well. He is eating full liquid diet uneventfully. He has had good bowel function. He denies nausea or vomiting. OBJECTIVE: VITAL SIGNS: On examination, he is afebrile. Pulse is 80, blood pressure 109/63. LUNGS: Clear to auscultation. ABDOMEN: Soft with normoactive bowel sounds. LABORATORY DATA: No new labs today. Microbiology; cultures reveal multiple organisms including Klebsiella, Enterococcus, and alpha hemolytic Streptococcus. Sensitivities still pending. Drain output was 90 mL for yesterday, but has apparently been 0 for today thus far. ASSESSMENT: He seems to be doing well. He is happy with his progress. I will leave him on a full liquid diet for now and continue his intravenous meropenem. If he remains stable and labs look good, then probably discharge him home with a drain in and on oral antibiotics tomorrow. Job ID: [id number]
[2019-07-07] MEDS: Enoxaparin Sodium 30 MG/0.3 ML SYRINGE SC SCH (20:19)
[2019-07-07] MEDS: Nicotine 21 MG PATCH TOP SCH (20:19)
[2019-07-08] MEDS: Meropenem 2 GM, Admixture Fee 1 EACH in Sodium Chloride 0.9% 100 ML IVPB SCH ×2 (03:45→12:39)
[2019-07-08] MEDS: HYDROcodone/Acetaminophen 10/325 mg Tablet PO PRN ×2 (03:51→11:17)
[2019-07-08] MEDS: Ketorolac Tromethamine 30 MG/ML VIAL IVP SCH ×4 (05:26→23:43)
[2019-07-08 05:31] LABS: #Eosinphils 0.2 thou/uL (0.0-0.7); #Lymphocytes 1.4 thou/uL (1.20-3.40); #Monocytes 0.4 thou/uL (0.11-0.59); #Neutrophils 2.2 thou/uL (1.40-6.50); %Basophils 0.9 % (0.0-1.0); %Eosinophils 5.7 % (0.0-10.0); %Lymphocytes 32.2 % (21.0-51.0); %Monocytes 9.4 % (0.0-10.0); %Neutrophils 51.7 % (42.0-75.0); Mean Corpuscular HGB CONC 32.5 g/dL (32.0-36.0); Mean Corpuscular Hemoglobin 30.7 pg (27.0-31.0); Mean Corpuscular Volume 94.4 fL (78.0-98.0); Mean Platelet Volume 6.6 fL (7.4-10.4); Platelet Count 459 thou/uL (130-400); RBC Distribution Width 12.3 % (11.5-14.5); Red Blood Cell (RBC) Count 4.24 mill/uL (4.70-6.10); White Blood Cell (WBC) Count 4.3 thou/uL (4.8-10.8)
[2019-07-08] MEDS: Mometasone/Formoterol 120 PUFF INHALER INH SCH ×2 (09:20→19:35)
[2019-07-08] MEDS: Lisinopril 5 MG TAB PO SCH (09:31)
[2019-07-08] MEDS: PARoxetine 20 MG TAB PO SCH (09:32)
[2019-07-08] MEDS: Famotidine 20 MG TAB PO SCH ×2 (09:33→21:04)
[2019-07-08] MEDS: Loratadine 10 MG TAB PO SCH (09:33)
[2019-07-08] MEDS: Gabapentin 300 MG CAP PO SCH (09:33)
[2019-07-08] MEDS: Famotidine/PF 20 mg/2ml Vial SLOW IVP SCH ×2 (09:34→21:06)
[2019-07-08] MEDS: Amlodipine 5 MG TAB PO SCH ×2 (09:35→21:03)
--- NOTE | 2019-07-08 14:40 | PRG ---
DATE OF SERVICE: 07/08/2019 SUBJECTIVE: Mr. Ross remains on the surgical floor. He is postoperative day #16 from laparoscopic sigmoid colectomy on postoperative day #[address]-guided drainage of left-sided abdominal abscess. He tells me in general he has felt well and he is hungry and his bowels have been moving. He does complain of some increased discomfort in his center lower abdomen. He also has some back discomfort to the drain site. OBJECTIVE: VITAL SIGNS: Temperature 98, pulse 78, and blood pressure 116/71. LUNGS: Clear to auscultation. ABDOMEN: Soft with normoactive bowel sounds and all incisions are nicely healed. There is no focal area of tenderness that I can perceive. Drain site is inspected and found to be clean. There is minimal drainage in the bag. This is being flushed twice a day. LABORATORY DATA: White blood cell count 4.3 with normal differential and hemoglobin is 13.0. ASSESSMENT AND PLAN: The patient is stable. Today, I will switch him from IV to oral antibiotics. We will do drain, teaching with him today and instruct him how to flush his drain as well. If he is doing well, I will plan on discharge him home tomorrow and see him back next week to get the drain out. Job ID: [id number]
[2019-07-08] MEDS: metroNIDAZOLE 500 MG TAB PO SCH ×2 (15:59→21:04)
[2019-07-08] MEDS: Ciprofloxacin 500 MG TAB PO SCH (21:03)
[2019-07-08] MEDS: Enoxaparin Sodium 30 MG/0.3 ML SYRINGE SC SCH (21:04)
[2019-07-08] MEDS: Nicotine 21 MG PATCH TOP SCH (21:05)
[2019-07-09] MEDS: HYDROcodone/Acetaminophen 10/325 mg Tablet PO PRN (05:04)
[2019-07-09] MEDS: Ciprofloxacin 500 MG TAB PO SCH (05:44)
[2019-07-09] MEDS: Ketorolac Tromethamine 30 MG/ML VIAL IVP SCH (05:44)
[2019-07-09] MEDS: Mometasone/Formoterol 120 PUFF INHALER INH SCH (08:08)
[2019-07-09] MEDS: Loratadine 10 MG TAB PO SCH (09:13)
[2019-07-09] MEDS: Gabapentin 300 MG CAP PO SCH (09:13)
[2019-07-09] MEDS: Famotidine 20 MG TAB PO SCH (09:13)
[2019-07-09] MEDS: Amlodipine 5 MG TAB PO SCH (09:13)
[2019-07-09] MEDS: metroNIDAZOLE 500 MG TAB PO SCH (09:13)
[2019-07-09] MEDS: PARoxetine 20 MG TAB PO SCH (09:14)
[2019-07-09] MEDS: Lisinopril 5 MG TAB PO SCH (09:14)
[2019-07-09] MEDS: Famotidine/PF 20 mg/2ml Vial SLOW IVP SCH (09:16)
[2019-07-09 11:16] VITALS: BP 123/74; TEMP 96.6
== END 2019-07-09 11:04 | disposition home or self-care (01) | DRG 863 ==
LOC: ERS 21:13 → SURG B 23:34
PROVIDERS: ADMIT Surgery; ATTEND Surgery
PROC: 0W9G30Z Drainage of Peritoneal Cavity with Drainage Device, Percutaneous Approach (ICD-10-PCS; principal; 2019-07-05)
DX: T81.43XA Infection following a procedure, organ and space surgical site, initial encounter (principal); J44.9 Chronic obstructive pulmonary disease, unspecified; E78.00 Pure hypercholesterolemia, unspecified; F17.210 Nicotine dependence, cigarettes, uncomplicated; Z85.118 Personal history of other malignant neoplasm of bronchus and lung; Z79.899 Other long term (current) drug therapy; Z88.5 Allergy status to narcotic agent; Z88.8 Allergy status to other drugs, medicaments and biological substances
CPT/HCPCS: 36415; 36416; 49060; 74177; 77002; 80048; 85025; 85060; 85610; 85730; 87070; 87077; 87186; 87205; 89051; 94664; 96361; 96374; 96375; B4083; C1729; J0131; J1650; J1885; J2185; J2250; J2270; J3010; J3490; Q9967

== ENCOUNTER 2019-07-20 17:05 | Inpatient (IN) | payer OTHER ==
[2019-07-20] MEDS ORDERED: Magnesium Citrate 300 ML BOT PO SCH (17:30)
[2019-07-20] MEDS ORDERED: Ondansetron PF 4 MG/2 ML Vial SLOW IVP PRN (17:30)
[2019-07-20] MEDS ORDERED: Morphine 2 MG/ML SYRINGE SLOW IVP PRN (17:30)
[2019-07-20 17:44] VITALS: BMI 25.9
[2019-07-20] MEDS ORDERED: Nicotine 21 MG PATCH TOP SCH (18:00)
[2019-07-20] MEDS ORDERED: Ketorolac Tromethamine 30 MG/ML VIAL IVP SCH (18:30)
[2019-07-20] MEDS ORDERED: Acetaminophen 1,000 MG in Premix Bag 1 BAG IVPB SCH (18:30)
[2019-07-20] MEDS: Dextrose 5%-Lactated Ringers 1,000 ML IV SCH (19:01)
[2019-07-20] MEDS: Piperacillin/Tazobactam 3.375 GM in Sodium Chloride 0.9% 100 ML IVPB SCH ×2 (19:01→23:04)
[2019-07-20] MEDS: Famotidine 20 MG TAB PO SCH (19:57)
[2019-07-20] MEDS: Acetaminophen 1,000 MG in Premix Bag 1 BAG IVPB SCH (23:04)
[2019-07-20] MEDS: Ketorolac Tromethamine 30 MG/ML VIAL IVP SCH (23:04)
[2019-07-21] MEDS: Dextrose 5%-Lactated Ringers 1,000 ML IV SCH ×2 (02:15→10:46)
[2019-07-21] MEDS: Morphine 2 MG/ML SYRINGE SLOW IVP PRN ×2 (03:33→17:56)
[2019-07-21 04:49] LABS: #Basophils 0.1 thou/uL (0.0-0.2); #Eosinphils 0.2 thou/uL (0.0-0.7); #Lymphocytes 1.7 thou/uL (1.20-3.40); #Monocytes 0.5 thou/uL (0.11-0.59); #Neutrophils 2.8 thou/uL (1.40-6.50); %Eosinophils 3.5 % (0.0-10.0); %Lymphocytes 32.9 % (21.0-51.0); %Monocytes 8.7 % (0.0-10.0); Hemoglobin 12.4 g/dL (14.0-18.0); Mean Corpuscular Hemoglobin 31.5 pg (27.0-31.0); Mean Corpuscular Volume 92.8 fL (78.0-98.0); Mean Platelet Volume 6.9 fL (7.4-10.4); Platelet Count 293 thou/uL (130-400); RBC Distribution Width 12.7 % (11.5-14.5); Red Blood Cell (RBC) Count 3.94 mill/uL (4.70-6.10); White Blood Cell (WBC) Count 5.3 thou/uL (4.8-10.8)
[2019-07-21 04:58] LABS: Anion Gap 12 mmol/L (10-20); BUN (Urea Nitrogen) 14 mg/dL (8.4-25.7); Calc. Creatinine Clearance 91 mL/min (70-130); Calcium 8.3 mg/dL (7.8-10.44); Carbon Dioxide 24 mmol/L (22-29); Chloride 105 mmol/L (98-107); Estimated GFR-MDRD 78; Glucose 116 mg/dL (70-105); Potassium 3.3 mmol/L (3.5-5.1); Sodium 138 mmol/L (136-145)
[2019-07-21] MEDS: Ketorolac Tromethamine 30 MG/ML VIAL IVP SCH ×3 (05:39→17:55)
[2019-07-21] MEDS: Acetaminophen 1,000 MG in Premix Bag 1 BAG IVPB SCH ×2 (05:40→12:23)
[2019-07-21] MEDS: Piperacillin/Tazobactam 3.375 GM in Sodium Chloride 0.9% 100 ML IVPB SCH ×3 (05:41→18:00)
[2019-07-21] MEDS: Nicotine 21 MG PATCH TOP SCH (05:42)
--- NOTE | 2019-07-21 09:35 | HP ---
CHIEF COMPLAINT: Abdominal pain, intraabdominal air. HISTORY OF PRESENT ILLNESS: The patient is a 59-year-old white male. He has a history of perforated sigmoid diverticulitis in April of this year. This was treated nonoperatively and this resolved uneventfully. He returned for elective laparoscopic sigmoid colectomy on June 26. He unfortunately returned to the hospital on July 05 with abdominal pain. He was recognized at that time to have an intraabdominal abscess. This appeared to be remote from the anastomotic site from his surgery. He was treated with a percutaneous drain placement. He was kept on antibiotics in the hospital and subsequently at home and was discharged. Last week, his drain was removed. He is still finishing a course of antibiotics. He saw his oncologist for followup in regard to lung cancer yesterday. Another CT scan was done and this revealed air within his left loret[place]-abdomen. This is in the same area where his abscess was previously. There was no definite evidence of abscess formation. The patient gives a history of ongoing oral intake with no vomiting. He denies fever at home, but his temperature in my office on 07/20 was 100.4. Laboratory studies revealed a normal white blood cell count with a normal differential. He was complaining of pain. I recommended re-admission to the hospital for antibiotics and laparoscopic abdominal washout. PAST MEDICAL HISTORY: 1. Long history of tobacco abuse. Interestingly, he has not smoked at this time for 2 weeks. 2. History of lung cancer. 3. COPD. 4. Hypertension. 5. Diabetes mellitus. PAST SURGICAL HISTORY: 1. Left knee surgery. 2. Left shoulder surgery. 3. Hemorrhoid surgery. 4. Left arm surgery. MEDICATIONS: Included; 1. Amlodipine. 2. Lisinopril. 3. Paxil. 4. Gabapentin. 5. Breo. 6. Dulera. 7. Claritin. 8. Flonase. ALLERGIES: NO KNOWN DRUG ALLERGIES. MORPHINE APPARENTLY CAUSES AGITATION. PERSONAL AND SOCIAL HISTORY: He is single, but engaged to be . He has 1 child. He is retired. REVIEW OF SYSTEMS: Otherwise unremarkable. FAMILY HISTORY: Noncontributory. PHYSICAL EXAMINATION: VITAL SIGNS: Temperature is 97.7, pulse was 94 upon admission and is 81 currently, and blood pressure is 119/77. LUNGS: Clear to auscultation. ABDOMEN: Soft. He has normoactive bowel sounds. He does have some tenderness on the left side of the abdomen. EXTREMITIES: Unremarkable. LABORATORY DATA: CBC on 07/21 (the day after his admission) shows a hemoglobin of 12.4 with white blood cell count of 5.3 and a normal differential. His basic metabolic panel is unremarkable. ASSESSMENT: The patient with a significant air collection in his abdomen that is adjacent to his left colon and is significantly superior to his prior anastomosis. This is the area that was drained previously percutaneously. At this point, given its persistence, I believe that this should be operatively examined. I recommend a laparoscopy. I would hopefully be able to perform a washout and placement of a drain and continue antibiotics. He strongly requests avoidance of ostomy if possible. If there is no evidence of feculent contamination, then I will avoid ostomy creation. The patient does understand there is a possibility of a temporary diverting ileostomy, but I am hoping to avoid this. He is scheduled for surgery on 07/21. Job ID: [id number]
[2019-07-21] MEDS: Morphine 4 MG/ML VIAL SLOW IVP PRN ×2 (09:40→21:01)
[2019-07-21] MEDS: Famotidine 20 MG TAB PO SCH ×2 (09:42→21:01)
[2019-07-21] MEDS ORDERED: Ketorolac Tromethamine 30 MG/ML VIAL ONE (11:54)
[2019-07-21] MEDS ORDERED: Nicotine 21 MG PATCH TOP SCH (12:00)
[2019-07-21] MEDS ORDERED: Famotidine/PF 20 mg/2ml Vial ONE (12:04)
[2019-07-21] MEDS ORDERED: Fentanyl 100 MCG/2 ML VIAL ONE ×2 (12:04→15:42)
[2019-07-21] MEDS ORDERED: ePHEDrine 50 MG/ML VIAL ONE (12:29)
[2019-07-21] MEDS ORDERED: Dexamethasone 20 MG/5 ML VIAL ONE (12:29)
[2019-07-21] MEDS ORDERED: Rocuronium Bromide 10 MG/ML (10ML VIAL) ONE (12:29)
[2019-07-21] MEDS ORDERED: Ondansetron PF 4 MG/2 ML Vial ONE (12:29)
[2019-07-21] MEDS ORDERED: PROPOFOL 200 MG/20 ML VIAL ONE (12:29)
[2019-07-21] MEDS ORDERED: Lidocaine 1% PF 5 ML VIAL ONE (12:29)
[2019-07-21] MEDS ORDERED: Bupivacaine/Epinephrine 0.25% 30 ML VIAL ONE (13:16)
[2019-07-21] MEDS ORDERED: Promethazine HCl 25 MG/ML VIAL IM PRN (14:16)
[2019-07-21] MEDS ORDERED: Promethazine HCl 25 MG/ML VIAL SLOW IVP PRN (14:16)
[2019-07-21] MEDS ORDERED: Meperidine HCl/PF 25 MG/ML VIAL SLOW IVP PRN (14:16)
[2019-07-21] MEDS ORDERED: Ondansetron HCl/PF 4 MG/2 ML Vial IVP PRN (14:16)
[2019-07-21] MEDS: D5 1/2 NS w/20 mEq KCL 1,000 ML IV SCH (18:00)
[2019-07-22] MEDS: Ketorolac Tromethamine 30 MG/ML VIAL IVP SCH ×5 (00:22→23:26)
[2019-07-22] MEDS: Piperacillin/Tazobactam 3.375 GM in Sodium Chloride 0.9% 100 ML IVPB SCH ×5 (00:23→23:26)
[2019-07-22] MEDS: Morphine 4 MG/ML VIAL SLOW IVP PRN ×5 (00:25→15:07)
--- NOTE | 2019-07-22 02:30 | OP ---
DATE OF PROCEDURE: 07/21/2019 PREOPERATIVE DIAGNOSIS: Intraabdominal air collection, recent history of intraabdominal abscess. POSTOPERATIVE DIAGNOSIS: Intraabdominal air collection, recent history of intraabdominal abscess. OPERATION PERFORMED: Laparoscopic drainage of intraabdominal abscess, repair of small bowel serosal defect. ANESTHESIA: General endotracheal. INDICATIONS: The patient is a 59-year-old white male. He is 5 to 6 weeks out from a laparoscopic sigmoid colectomy for perforated diverticulitis. About 2 weeks ago, he was admitted to the hospital with findings of what appeared to be an intraabdominal abscess. This was drained percutaneously through a left flank drain placed by Radiology. He did well following this procedure and his drain was removed a little over a week ago. He was still taking antibiotics. He had a CT scan performed yesterday that revealed a fairly large persistent air collection in the area of the previous abscess just medial and posterior to the left colon near the splenic flexure. The patient was taken to the operating room at this time for laparoscopic evaluation and washout. DESCRIPTION OF OPERATION: Informed consent was obtained. The patient was taken to the operating room where general endotracheal anesthesia was obtained with the patient in supine position. Abdomen was prepped with ChloraPrep and draped in sterile fashion. Local anesthetic was infiltrated using 0.25% Marcaine with epinephrine. A 5-mm supraumbilical incision from his prior surgery was again locally anesthetized and reopened. Veress needle was passed through this into the peritoneal cavity. Pneumoperitoneum was established using carbon dioxide up to pressure of 15 mmHg. A 5-mm trocar port was passed through the same incision. A 2nd 5 mm port was placed in the right lower abdomen through the same incision that had been used previously. Finally, I placed a 5-mm suprapubic port through that incision. Through these 3 incisions, I explored the abdomen. There were some omental adhesions to the anterior abdominal wall in the upper abdomen, but no other anterior abdominal wall adhesions. The bowel was widely mobile and there were scant adhesions within the abdomen. There were some adhesions of the small bowel to the retroperitoneum and to the mesentery of the left colon. I was also able to visualize a thin segment of the mesentery of the upper left colon through which air appeared to be bulging. This was clearly the air collection that had been seen on the CT scan. Before addressing this, I decided to mobilize the small bowel fully. There was one segment of small bowel that was fairly densely adherent to the retroperitoneal structures and the mesentery. It was with difficulty that I mobilized this away. There was certainly no enterotomy, but there was a serosal defect created in doing this and I later decided that I needed to repair this. There was an additional segment of the small bowel mesentery that was fairly densely adherent to this and this was mobilized away using sharp dissection with electrocautery. I assessed the area of the thinned mesentery in the upper abdomen. This was incised and entry was gained into a pocket that appeared to be 4 or 5 cm in dimension. I incised the mesentery superiorly and inferiorly to widely open this pocket. Within this area, there was no evidence of any purulence or contamination of any sort. It had a mild inflammatory appearance. I copiously irrigated both this pocket as well as the retroperitoneal area and the abdomen entirely. I utilized about 5 L of the irrigant in total. To address the area of the deserosalized segment of small bowel, I made a 4-cm periumbilical incision and gained access into the abdominal cavity. I placed an [place] wound retractor through this and brought the small bowel of question through this. There were some serosal defects and these were repaired using a series of interrupted sutures of 3-0 silk. The entire area appeared viable and was dropped back down to the abdominal cavity. I obtained a #19 round fluted drain and placed this intraabdominal and brought it out through the lower abdominal incision where it was secured with a 3-0 nylon suture. The drain was positioned such that the tip of it was passed through the opening of the mesentery into the pocket in the left abdomen. All ports and instruments were removed under direct vision. Pneumoperitoneum was carefully evacuated. 0.25% Marcaine with epinephrine was infiltrated in each port site and skin edges were approximated with 4-0 Monocryl subcuticular suture. Dermabond was placed externally and a gauze dress was placed over the drain exit site. There were no complications. The patient tolerated the procedure well and was taken to recovery room in stable condition. Job ID: [id number]
[2019-07-22] MEDS: D5 1/2 NS w/20 mEq KCL 1,000 ML IV SCH ×3 (03:26→21:43)
[2019-07-22] MEDS: Nicotine 21 MG PATCH TOP SCH (06:24)
[2019-07-22] MEDS: Famotidine 20 MG TAB PO SCH ×2 (09:05→21:38)
[2019-07-22] MEDS ORDERED: PROVENTIL INHALER 6.7 G (200 INHALATIONS) INH PRN (19:26)
[2019-07-22] MEDS ORDERED: HYDROcodone/Acetaminophen 7.5/325 mg Tablet PO PRN (21:01)
--- NOTE | 2019-07-22 21:04 | PDOC.GSPN ---
Surgery Progress Note: Subj - Subjective Narrative: Incisional pain, helped by morphine but not for long. Tolerating clears, no nausea, passing gas. Abdomen soft, incisions look good, serosanguinous drain output. BP up, other VS OK. A/P: Doing well s/p drainage intra-abdominal abscess. Advance to fulls, begin PO pain meds. Restart home meds including anti-hypertensives. Lovenox for DVT prophylaxis. Surgery Progress Note: Obj - Vital signs Vital signs: Vital Signs - Most Recent Temp Pulse Resp BP Pulse Ox 98.5 F 78 16 132/72 95 07/22/19 19:40 07/22/19 19:40 07/22/19 19:40 07/22/19 19:40 07/22/19 19:40 Surgery Progress Note: Results - Labs Result Diagrams: 07/21/19 03:58 07/21/19 03:58
[2019-07-22] MEDS: HYDROcodone/Acetaminophen 7.5/325 mg Tablet PO PRN (21:38)
[2019-07-22] MEDS: Amlodipine 5 MG TAB PO SCH (21:38)
[2019-07-23] MEDS: HYDROcodone/Acetaminophen 7.5/325 mg Tablet PO PRN ×5 (03:42→23:23)
[2019-07-23] MEDS: Ketorolac Tromethamine 30 MG/ML VIAL IVP SCH ×4 (05:41→23:25)
[2019-07-23] MEDS: Morphine 4 MG/ML VIAL SLOW IVP PRN ×4 (05:44→17:02)
[2019-07-23] MEDS: Piperacillin/Tazobactam 3.375 GM in Sodium Chloride 0.9% 100 ML IVPB SCH ×4 (05:49→23:28)
[2019-07-23] MEDS: Nicotine 21 MG PATCH TOP SCH ×2 (05:51→07:32)
[2019-07-23] MEDS: Mometasone/Formoterol 120 PUFF INHALER INH SCH ×2 (07:58→19:26)
[2019-07-23] MEDS: Famotidine 20 MG TAB PO SCH ×2 (08:58→20:24)
[2019-07-23] MEDS: PARoxetine 20 MG TAB PO SCH (08:59)
[2019-07-23] MEDS: Lisinopril 5 MG TAB PO SCH (08:59)
[2019-07-23] MEDS ORDERED: Nicotine 21 MG PATCH TD SCH (09:00)
[2019-07-23] MEDS: Amlodipine 5 MG TAB PO SCH ×2 (09:00→20:25)
[2019-07-23] MEDS: Loratadine 10 MG TAB PO SCH (09:01)
[2019-07-23] MEDS: Enoxaparin Sodium 40 MG/0.4 ML SYRINGE SC SCH (09:01)
[2019-07-23] MEDS: Benzonatate 100 MG CAP PO SCH (09:01)
[2019-07-23] MEDS: Fluticasone Propionate Nasal Spray 16 gm Bottle NASAL SCH (10:56)
[2019-07-23] MEDS: D5 1/2 NS w/20 mEq KCL 1,000 ML IV SCH ×2 (10:56→20:26)
[2019-07-23] MEDS: Morphine 2 MG/ML SYRINGE SLOW IVP PRN (20:31)
--- NOTE | 2019-07-23 20:31 | PDOC.GSPN ---
Surgery Progress Note: Subj - Subjective Narrative: Doing well overall but still having quite a bit of pain requiring IV medication. 3 liquid stools today. Tolerating full liquids. Abdomen soft. Serosanguineous JOSH drainage. Incisions look good. Diffusely tender to palpation. Vital signs are okay. Assessment/plan: Status post colon resection with intra-abdominal abscess status post drainage. Check C. difficile. Probiotics. Advance diet to regular. Surgery Progress Note: Obj - Vital signs Vital signs: Vital Signs - Most Recent Temp Pulse Resp BP Pulse Ox 98.7 F 100 16 117/73 98 07/23/19 19:25 07/23/19 20:25 07/23/19 19:26 07/23/19 20:25 07/23/19 19:26 Surgery Progress Note: Results - Labs Result Diagrams: 07/21/19 03:58 07/21/19 03:58
[2019-07-24] MEDS: Morphine 4 MG/ML VIAL SLOW IVP PRN ×5 (00:33→23:02)
[2019-07-24] MEDS: HYDROcodone/Acetaminophen 7.5/325 mg Tablet PO PRN ×4 (04:30→19:45)
[2019-07-24] MEDS: D5 1/2 NS w/20 mEq KCL 1,000 ML IV SCH ×3 (06:27→19:46)
[2019-07-24] MEDS: Ketorolac Tromethamine 30 MG/ML VIAL IVP SCH ×4 (06:28→23:42)
[2019-07-24] MEDS: Piperacillin/Tazobactam 3.375 GM in Sodium Chloride 0.9% 100 ML IVPB SCH ×4 (06:29→23:45)
[2019-07-24] MEDS: Nicotine 21 MG PATCH TOP SCH (07:41)
[2019-07-24] MEDS: Mometasone/Formoterol 120 PUFF INHALER INH SCH ×2 (07:51→18:52)
[2019-07-24] MEDS: Enoxaparin Sodium 40 MG/0.4 ML SYRINGE SC SCH (09:03)
[2019-07-24] MEDS: Saccharomyces boulardii 250 MG CAP PO SCH (09:03)
[2019-07-24] MEDS: Famotidine 20 MG TAB PO SCH ×2 (09:04→21:30)
[2019-07-24] MEDS: Benzonatate 100 MG CAP PO SCH (09:04)
[2019-07-24] MEDS: Amlodipine 5 MG TAB PO SCH ×2 (09:04→21:30)
[2019-07-24] MEDS: PARoxetine 20 MG TAB PO SCH (09:04)
[2019-07-24] MEDS: Lisinopril 5 MG TAB PO SCH (09:04)
[2019-07-24] MEDS: Loratadine 10 MG TAB PO SCH (09:04)
[2019-07-24] MEDS: Fluticasone Propionate Nasal Spray 16 gm Bottle NASAL SCH (09:08)
[2019-07-24] MEDS: Nicotine 21 MG PATCH TD SCH (12:01)
--- NOTE | 2019-07-24 15:12 | PRG ---
DATE OF SERVICE: 07/24/2019 SUBJECTIVE: The patient is still having quite a bit of lower abdominal pain, but it is a little bit better than yesterday. OBJECTIVE: Temperature 97.7, pulse 96, blood pressure 120/73. He looks good. He is tolerating a regular diet. His bowels are functioning well. His abdomen is little distended. There is a little bit of erythema around the subumbilical incision. LABORATORY DATA: C. diff is negative. ASSESSMENT: Status post drainage of abscess, stable. PLAN: Continue antibiotics. Job ID: [id number]
[2019-07-25] MEDS: HYDROcodone/Acetaminophen 7.5/325 mg Tablet PO PRN ×4 (03:35→23:47)
[2019-07-25] MEDS: Morphine 4 MG/ML VIAL SLOW IVP PRN (04:26)
[2019-07-25] MEDS: Piperacillin/Tazobactam 3.375 GM in Sodium Chloride 0.9% 100 ML IVPB SCH ×4 (06:10→23:41)
[2019-07-25] MEDS: Ketorolac Tromethamine 30 MG/ML VIAL IVP SCH ×3 (06:11→17:27)
[2019-07-25] MEDS: Mometasone/Formoterol 120 PUFF INHALER INH SCH ×2 (07:08→18:31)
[2019-07-25] MEDS: Amlodipine 5 MG TAB PO SCH ×2 (08:13→20:47)
[2019-07-25] MEDS: Benzonatate 100 MG CAP PO SCH (08:14)
[2019-07-25] MEDS: Famotidine 20 MG TAB PO SCH ×2 (08:15→20:47)
[2019-07-25] MEDS: Enoxaparin Sodium 40 MG/0.4 ML SYRINGE SC SCH (08:15)
[2019-07-25] MEDS: Lisinopril 5 MG TAB PO SCH (08:16)
[2019-07-25] MEDS: Fluticasone Propionate Nasal Spray 16 gm Bottle NASAL SCH (08:16)
[2019-07-25] MEDS: Saccharomyces boulardii 250 MG CAP PO SCH (08:17)
[2019-07-25] MEDS: Loratadine 10 MG TAB PO SCH (08:17)
[2019-07-25] MEDS: PARoxetine 20 MG TAB PO SCH (08:17)
[2019-07-25] MEDS: D5 1/2 NS w/20 mEq KCL 1,000 ML IV SCH ×2 (11:18→20:49)
[2019-07-25] MEDS: Nicotine 21 MG PATCH TD SCH (11:22)
--- NOTE | 2019-07-25 13:07 | PRG ---
DATE OF SERVICE: 07/25/2019 SUBJECTIVE: The patient states he is feeling a lot better. The pain is much better today. No nausea or vomiting. He is tolerating a regular diet. He is having bowel movements. OBJECTIVE: VITAL SIGNS: His temperature is 98.1, pulse 91, blood pressure 116/72. GENERAL: He looks better. ABDOMEN: Still a bit distended. He still has some erythema around the subumbilical incision. Drain output is 140 mL, still fairly cloudy serosanguineous. ASSESSMENT: Status post incision and drainage of abdominal abscess, improved. PLAN: Continue IV antibiotics. Job ID: [id number]
[2019-07-26] MEDS: HYDROcodone/Acetaminophen 7.5/325 mg Tablet PO PRN ×2 (04:59→09:49)
[2019-07-26] MEDS: Piperacillin/Tazobactam 3.375 GM in Sodium Chloride 0.9% 100 ML IVPB SCH ×2 (05:01→12:14)
[2019-07-26] MEDS: D5 1/2 NS w/20 mEq KCL 1,000 ML IV SCH (05:04)
[2019-07-26] MEDS ORDERED: D5 1/2 NS w/20 mEq KCL 1,000 ML IV SCH (08:38)
[2019-07-26] MEDS: Benzonatate 100 MG CAP PO SCH (08:47)
[2019-07-26] MEDS: Lisinopril 5 MG TAB PO SCH (08:47)
[2019-07-26] MEDS: Amlodipine 5 MG TAB PO SCH (08:47)
[2019-07-26] MEDS: PARoxetine 20 MG TAB PO SCH (08:47)
[2019-07-26] MEDS: Loratadine 10 MG TAB PO SCH (08:48)
[2019-07-26] MEDS: Famotidine 20 MG TAB PO SCH (08:48)
[2019-07-26] MEDS: Enoxaparin Sodium 40 MG/0.4 ML SYRINGE SC SCH (08:48)
[2019-07-26] MEDS: Saccharomyces boulardii 250 MG CAP PO SCH (08:48)
[2019-07-26] MEDS: Fluticasone Propionate Nasal Spray 16 gm Bottle NASAL SCH (08:55)
[2019-07-26 08:58] LABS: #Eosinphils 0.4 thou/uL (0.0-0.7); #Lymphocytes 1.4 thou/uL (1.20-3.40); #Monocytes 0.5 thou/uL (0.11-0.59); %Basophils 0.3 % (0.0-1.0); %Eosinophils 6.6 % (0.0-10.0); %Lymphocytes 21.6 % (21.0-51.0); %Monocytes 8.1 % (0.0-10.0); %Neutrophils 63.5 % (42.0-75.0); Hemoglobin 11.9 g/dL (14.0-18.0); Mean Corpuscular Hemoglobin 31.8 pg (27.0-31.0); Mean Corpuscular Volume 93.6 fL (78.0-98.0); Mean Platelet Volume 6.4 fL (7.4-10.4); Platelet Count 260 thou/uL (130-400); RBC Distribution Width 12.9 % (11.5-14.5); Red Blood Cell (RBC) Count 3.72 mill/uL (4.70-6.10); White Blood Cell (WBC) Count 6.3 thou/uL (4.8-10.8)
[2019-07-26 11:59] VITALS: BP 130/82; TEMP 98.4
[2019-07-26] MEDS: Nicotine 21 MG PATCH TD SCH (12:14)
--- NOTE | 2019-07-26 22:13 | PRG ---
DATE OF SERVICE: SUBJECTIVE: Mr. Ross has been stable since his surgery on July 21 (5 days ago). At that time performed laparoscopic drainage of intraabdominal abscess and air collection. He is tolerating his diet. He has had several bowel movements. He denies significant pain. He is ambulating well and voiding well. OBJECTIVE: VITAL SIGNS: Temperature 98.4, pulse 94, blood pressure 130/82. LUNGS: Clear to auscultation. ABDOMEN: Soft with normoactive bowel sounds. All incisions are nicely healed. LABORATORY DATA: CBC from today reveals white blood cell count of 6.3, hemoglobin is 11.9. Differential is entirely normal. His drain output continues to be 540 mL per day. It is slightly cloudy, but essentially serosanguineous. ASSESSMENT: The patient is doing well following incision and drainage five days ago. There has been no concerning output from the drain. He has been on IV antibiotics since his admission. He appears stable for discharge. His JOSH drain will be removed today. He will be discharged with a prescription for Cipro and Flagyl, and asked to follow up with myself in about 9 days for followup. He is instructed to begin taking a fiber supplement such as Benefiber every day, beginning today. Job ID: [id number]
== END 2019-07-26 15:30 | disposition home or self-care (01) | DRG 857 ==
LOC: SURG A 17:16
PROVIDERS: ADMIT Specialist; ATTEND Specialist
PROC: 0W9G40Z Drainage of Peritoneal Cavity with Drainage Device, Percutaneous Endoscopic Approach (ICD-10-PCS; principal; 2019-07-20)
PROC: 0DQ84ZZ Repair Small Intestine, Percutaneous Endoscopic Approach (ICD-10-PCS; 2019-07-20)
DX: T81.43XA Infection following a procedure, organ and space surgical site, initial encounter (principal); J95.812 Postprocedural air leak; K91.71 Accidental puncture and laceration of a digestive system organ or structure during a digestive system procedure; K66.8 Other specified disorders of peritoneum; F17.200 Nicotine dependence, unspecified, uncomplicated; J44.9 Chronic obstructive pulmonary disease, unspecified; I10 Essential (primary) hypertension; L53.8 Other specified erythematous conditions; Z85.118 Personal history of other malignant neoplasm of bronchus and lung; Z98.890 Other specified postprocedural states; Z79.899 Other long term (current) drug therapy; Z88.8 Allergy status to other drugs, medicaments and biological substances
CPT/HCPCS: 36415; 80048; 85025; 87324; 87449; 94664; J0131; J1100; J1650; J1885; J2001; J2270; J2405; J2543; J2704; J3010; J3490; S0028

== ENCOUNTER 2019-11-11 07:51 | Outpatient (CLI) | payer OTHER ==
--- NOTE | 2019-11-11 10:17 | RAD ---
ABDOMEN 1 VIEW: HISTORY: Colonic diverticular abscess. FINDINGS/IMPRESSION: The bowel gas pattern is unremarkable. A large amount of fecal material is seen in the colon. Discussed over the telephone with Dr. Alvarado's lpn medical assistant, Lashonda. The patient will be resche duled for his barium enema after a bowel prep. CODE CR POS: [facility]
== END 2019-11-11 07:52 | disposition home or self-care (01) ==
LOC: RAD 07:51
PROVIDERS: ATTEND Specialist
DX: K57.20 Diverticulitis of large intestine with perforation and abscess without bleeding (principal); R19.5 Other fecal abnormalities
CPT/HCPCS: 74018

== ENCOUNTER 2020-01-18 16:10 | Inpatient (IN) | payer OTHER ==
[~2020-01-18 16:10] MED LIST changes: -Iopamidol 370 76% 100 ML VIAL ONE; +Iopamidol-370 76% 500 ML 1 ML ONE
[2020-01-18 17:21] LABS: #Lymphocytes 1.7 thou/uL (1.20-3.40); #Monocytes 0.9 thou/uL (0.11-0.59); #Neutrophils 8.4 thou/uL (1.40-6.50); %Basophils 0.2 % (0.0-1.0); %Eosinophils 0.4 % (0.0-10.0); %Lymphocytes 15.7 % (21.0-51.0); %Monocytes 7.8 % (0.0-10.0); Hemoglobin 13.9 g/dL (14.0-18.0); Mean Corpuscular HGB CONC 33.2 g/dL (32.0-36.0); Mean Corpuscular Hemoglobin 30.1 pg (27.0-31.0); Mean Corpuscular Volume 90.9 fL (78.0-98.0); Mean Platelet Volume 6.8 fL (7.4-10.4); Platelet Count 267 thou/uL (130-400); RBC Distribution Width 13.2 % (11.5-14.5); Red Blood Cell (RBC) Count 4.61 mill/uL (4.70-6.10)
[2020-01-18 17:42] LABS: ALT (SGPT) 36 U/L (8-55); AST (SGOT) 27 U/L (5-34); Alkaline Phosphatase 55 U/L (40-110); Anion Gap 13 mmol/L (10-20); BUN (Urea Nitrogen) 12 mg/dL (8.4-25.7); Bilirubin, Total 0.8 mg/dL (0.2-1.2); Calc. Creatinine Clearance 0 mL/min (70-130); Calcium 8.3 mg/dL (7.8-10.44); Carbon Dioxide 22 mmol/L (22-29); Chloride 105 mmol/L (98-107); Estimated GFR-MDRD Greater than 90; Globulin 2.7 g/dL (2.4-3.5); Glucose 92 mg/dL (70-105); Lipase 34 U/L (8-78); Potassium 3.9 mmol/L (3.5-5.1); Protein, Total 6.7 g/dL (6.0-8.3); Sodium 136 mmol/L (136-145)
[2020-01-18] MEDS ORDERED: Fentanyl 100 MCG/2 ML VIAL ONE (18:08)
[2020-01-18 18:10] LABS: Bilirubin Negative (Negative); Blood, Urine Negative (Negative); Clarity Clear (Clear); Glucose, Urine (Dipstick) Normal (Negative); Leukocyte Negative Leu/uL (Negative); Nitrite Negative (Negative); Protein, Urine (Dipstick) Negative (Neg-Trace); Urobilinogen Normal mg/dL (Less than 2)
--- NOTE | 2020-01-18 19:04 | CT ---
CT ABDOMEN AND PELVIS PERFORMED WITH CONTRAST ENHANCEMENT: 01/18/20 HISTORY: Abdominal pain. COMPARISON: 07/05/19 study. Nodular density measuring 7 mm in size in the right lower lobe is stable. No infiltrative process. Th ere is some mild pericardial effusion. Hypodensities within the liver are similar to the previous study and appear to represent cysts. The s pleen, pancreas, and gallbladder regions appear unremarkable. Right and left adrenal glands and right and left kidneys are normal in size. No significant periaorti c or mesenteric adenopathy. There is free air demonstrated around the liver and free air which is sara r an anastomotic suture line in the sigmoid colon. There is a moderate amount of stool also seen with in the sigmoid colon. There is no abscess collection identified. No pelvic lymphadenopathy or free fluid. IMPRESSION: 1. Evidence of a perforation. The perforation is from the level at or near an anastomotic suture line within the sigmoid colon. There is no abscess formation. 2. Mild pericardial effusion incidentally seen. 3. Small hiatal hernia. 4. These findings were telephoned to Dr. Almaguer at the time of this dictation. POS: [facility]
[2020-01-18] MEDS ORDERED: metroNIDAZOLE 500 MG/100 ML BAG ONE (20:10)
[2020-01-18] MEDS ORDERED: hydrALAZINE 20 MG/ML VIAL SLOW IVP PRN (21:07)
[2020-01-18] MEDS ORDERED: Morphine 2 MG/ML SYRINGE SLOW IVP PRN (21:07)
[2020-01-18] MEDS ORDERED: Ondansetron PF 4 MG/2 ML Vial IVP PRN (21:07)
[2020-01-18] MEDS ORDERED: Dextrose 5% in Water 1,000 ML IV PRN (21:07)
[2020-01-18] MEDS ORDERED: Lorazepam 2 MG/ML VIAL SLOW IVP PRN (21:07)
[2020-01-18] MEDS ORDERED: Dextrose 50% Abboject 50 ML SYRINGE SLOW IVP PRN (21:07)
[2020-01-18] MEDS ORDERED: Morphine 4 MG/ML VIAL ONE (21:23)
[2020-01-18] MEDS: Famotidine/PF 20 mg/2ml Vial SLOW IVP SCH (22:46)
[2020-01-18] MEDS: Morphine 4 MG/ML VIAL SLOW IVP PRN (23:27)
[2020-01-18] MEDS: D5 1/2 NS w/20 mEq KCL 1,000 ML IV SCH (23:27)
[2020-01-19] MEDS: Piperacillin/Tazobactam 4.5 GM in Sodium Chloride 0.9% 100 ML IVPB SCH ×5 (00:15→23:57)
[2020-01-19] MEDS: Ketorolac Tromethamine 30 MG/ML VIAL IVP SCH ×5 (00:15→23:57)
[2020-01-19] MEDS: Morphine 4 MG/ML VIAL SLOW IVP PRN ×3 (01:48→09:16)
[2020-01-19 02:25] VITALS: BMI 28.9
[2020-01-19] MEDS: D5 1/2 NS w/20 mEq KCL 1,000 ML IV SCH ×2 (05:06→17:02)
[2020-01-19 05:50] LABS: #Eosinphils 0.1 thou/uL (0.0-0.7); #Lymphocytes 1.6 thou/uL (1.20-3.40); #Monocytes 0.6 thou/uL (0.11-0.59); #Neutrophils 5.3 thou/uL (1.40-6.50); %Basophils 0.1 % (0.0-1.0); %Eosinophils 1.8 % (0.0-10.0); %Lymphocytes 20.8 % (21.0-51.0); %Monocytes 8.1 % (0.0-10.0); %Neutrophils 69.2 % (42.0-75.0); Hemoglobin 13.7 g/dL (14.0-18.0); Mean Corpuscular Hemoglobin 30.4 pg (27.0-31.0); Mean Corpuscular Volume 92.2 fL (78.0-98.0); Mean Platelet Volume 6.9 fL (7.4-10.4); Platelet Count 232 thou/uL (130-400); RBC Distribution Width 13.2 % (11.5-14.5); White Blood Cell (WBC) Count 7.6 thou/uL (4.8-10.8)
[2020-01-19 06:10] LABS: Anion Gap 10 mmol/L (10-20); BUN (Urea Nitrogen) 9 mg/dL (8.4-25.7); Calc. Creatinine Clearance 127 mL/min (70-130); Calcium 8.3 mg/dL (7.8-10.44); Carbon Dioxide 25 mmol/L (22-29); Chloride 105 mmol/L (98-107); Estimated GFR-MDRD Greater than 90; Glucose 104 mg/dL (70-105); Potassium 3.9 mmol/L (3.5-5.1); Sodium 136 mmol/L (136-145)
[2020-01-19] MEDS: Famotidine/PF 20 mg/2ml Vial SLOW IVP SCH ×2 (09:16→20:44)
[2020-01-19] MEDS ORDERED: EPHEDRINE 25 MG/5 ML SYRINGE ONE (10:12)
[2020-01-19] MEDS ORDERED: Esmolol 100 MG/10 ML VIAL ONE (10:12)
[2020-01-19] MEDS ORDERED: Ondansetron PF 4 MG/2 ML Vial ONE (10:12)
[2020-01-19] MEDS ORDERED: PHENYLEPHRINE-NS 100 MCG/ML 10 ML SYRINGE ONE (10:12)
[2020-01-19] MEDS ORDERED: PROPOFOL 200 MG/20 ML VIAL ONE (10:12)
[2020-01-19] MEDS ORDERED: Succinylcholine Chloride 20 MG/ML 10 ml SYRINGE FS ONE (10:12)
[2020-01-19] MEDS ORDERED: Rocuronium Bromide 10 MG/ML (10ML VIAL) ONE (10:12)
[2020-01-19] MEDS ORDERED: Lidocaine 1% PF 5 ML VIAL ONE (10:12)
[2020-01-19] MEDS ORDERED: Glycopyrrolate 0.2 MG/ML 5 ML SYRINGE ONE (10:12)
[2020-01-19] MEDS ORDERED: Bupivacaine 0.25% HCL 30 ML VIAL ONE (12:20)
[2020-01-19] MEDS ORDERED: Lidocaine 1% w/Epinephrine 1:100K 20 ML VIAL ONE (12:20)
[2020-01-19] MEDS ORDERED: Fentanyl 100 MCG/2 ML VIAL ONE ×3 (12:50→14:46)
[2020-01-19] MEDS ORDERED: SUGAMMADEX SODIUM 200 MG/2 ML VIAL ONE (12:50)
[2020-01-19] MEDS ORDERED: HYDROmorphone 0.5 MG/0.5 ML SYRINGE ONE (12:50)
--- NOTE | 2020-01-19 13:38 | HP ---
CHIEF COMPLAINT: Abdominal pain with apparent perforated colon. HISTORY OF PRESENT ILLNESS: The patient is a 59-year-old white male, well known to me from prior surgery. In April of 2019, he had presented to the hospital with microperforated diverticulitis. In June of 2019, I performed a laparoscopic sigmoid colectomy. Unfortunately, although he agreed to stop smoking prior to surgery, he never did. He returned about 2 weeks out from the surgery and had evidence of extraluminal with what appeared to be an intraabdominal abscess. A CT-guided drainage of the intraabdominal abscess was performed and the patient was discharged home on July 09. The drain was removed uneventfully and the patient did well. He returned, however, in July and was noted to have an intraabdominal air collection. There was a collection without infection within the mesentery of the left colon that was treated laparoscopically. He was hospitalized for that between July 21 and July 26. When he returned to see me in October, there had been a CT scan obtained at an outside facility. This demonstrated potential irregularity in the colon. I had requested a barium enema for further evaluation that was never obtained. The patient tells me that he saw a doctor that he believes was a surgeon in the [facility]. Since I last saw him and he apparently had some studies performed which included apparently a CT scan and maybe a barium enema and was told that all appeared to be normal and he required no further evaluation or treatment. Unfortunately, I have none of these records and was not apprised of this until today. The patient returned to the emergency room last night. He complained of severe abdominal pain. A CT scan was obtained, which showing free air up around the liver and close to the rectosigmoid anastomosis. There was a large amount of stool within the colon, it is difficult to discern what exact processes are intraabdominal. The patient was given IV antibiotics and IV fluids and admitted to my service. He continues to complain of pain primarily in the right lower abdomen. His white blood cell count was slightly elevated when he presented last night at 11.0 and today it is down to 7.6. His hemoglobin is stable at 13.7. His electrolytes were normal last night and remained normal today. He has remained afebrile since admission with pulse in the 80s, blood pressure is 110/76. PHYSICAL EXAMINATION: VITAL SIGNS: Examination as mentioned, he is afebrile with normal vital signs. LUNGS: Clear to auscultation. He does have a slight wheeze. ABDOMEN: Mildly distended. He is tender in the lower abdomen, but appears to be more tender on the right than the left. Bowel sounds are present and normoactive. EXTREMITIES: Unremarkable. PAST MEDICAL HISTORY: 1. COPD. 2. Tobacco abuse (ongoing). 3. Hypercholesterolemia. 4. Diverticulitis. 5. History of lung cancer. PAST SURGICAL HISTORY: Laparoscopic sigmoid colectomy and diagnostic laparoscopy as referenced above. MEDICATIONS: 1. Amlodipine. 2. Gabapentin. 3. Lisinopril. 4. Flonase. ALLERGIES: TYLENOL WITH CODEINE. PERSONAL AND SOCIAL HISTORY: Still smokes about a pack per day. He is and has one child. REVIEW OF SYSTEMS: Otherwise unremarkable. FAMILY HISTORY: Noncontributory. ASSESSMENT: The patient with a perforation of his colon. This may be at the level of the anastomosis or may be another adjacent area, it is difficult if not impossible to say. PLAN: The plan for now is to proceed with laparoscopy with a washout and drain placement. Thereafter, he would require evaluation with colonoscopy and potentially barium enema to try and discern where potential problem is, it might benefit from . If he requires a resectional surgery now, then he would likely require a colostomy. He understands all this and agrees to proceed with surgery at this time. Job ID: [id number]
[2020-01-19] MEDS ORDERED: PROVENTIL INHALER 6.7 G (200 INHALATIONS) INH PRN (14:27)
[2020-01-19] MEDS: Ipratropium Bromide 2.5 ml Neb NEB SCH (19:30)
[2020-01-19] MEDS: Mometasone/Formoterol 120 PUFF INHALER INH SCH (19:31)
[2020-01-19] MEDS: Amlodipine 5 MG TAB PO SCH (20:37)
--- NOTE | 2020-01-19 23:26 | OP ---
DATE OF PROCEDURE: 01/18/2020 PREOPERATIVE DIAGNOSIS: Perforated colon with acute abdominal pain. POSTOPERATIVE DIAGNOSIS: Perforated colon with acute abdominal pain. PROCEDURES PERFORMED: Exploratory laparoscopy, lysis of adhesions, extensive intraabdominal washout using 6 L of saline, and placement of intraabdominal drain. ANESTHESIA: General endotracheal. INDICATIONS: The patient is a 59-year-old white male. He had undergone surgery with a laparoscopic sigmoid colectomy in June 2019. He returned to the hospital last night, complained of abdominal pain. CT scan revealed evidence of extraluminal air consistent with a microperforation of colon. This appeared to be likely in the area of the anastomosis from his prior sigmoid colectomy. He was taken to the operating room at this time for laparoscopy and washout. DESCRIPTION OF OPERATION: Informed consent was obtained. The patient was taken to the operating room where general endotracheal anesthesia was obtained with the patient in supine position. Abdomen was prepped with ChloraPrep and draped in sterile fashion. Local anesthetic was infiltrated using a mixture of 0.25% Marcaine and 1% lidocaine with epinephrine. A right mid abdominal 5-mm incision was created, and Veress needle was passed this incision into the peritoneal cavity. A pneumoperitoneum was established using carbon dioxide up to a pressure of 15 mmHg. A 5-mm trocar port was passed through the same incision. Laparoscopic camera was passed through this port. Under direct vision, I placed 2 additional ports, one in the mid upper abdomen and one in the right lower quadrant. There were extensive, but relatively filmy adhesions involving much of the small bowel. These were mobilized away from the left lateral abdominal wall as well as the left colon and the retroperitoneum as well as interloop. There were adhesions of small bowel down to the pelvis, and these were also mobilized. There were a couple of loops of small intestine that were fairly indurated and inflamed areas where they had been adherent to the area of the prior anastomosis in the left lower quadrant. This area was fairly densely inflamed, and I could not mobilize this easily away from the left pelvic sidewall. This was almost certainly the area of perforation. There was never noted any purulence or enteric material. There was some mild oozy places as the adhesions were lysed. After mobilizing of all tissue, possible except for the area of the previous sigmoid colon, I began extensive irrigation of the abdomen. I irrigated 6 L of fluid into both upper and lower abdomen, and all irrigant possible was aspirated. A #19 round fluted drain was obtained and brought out through the epigastric port and secured with a 3-0 nylon suture. The drain was placed down to the pelvis. The other two skin incisions were closed with 4-0 Monocryl subcuticular suture. Dermabond was placed externally. A gauze dress was placed on the drain exit site. There were no complications. Blood loss was minimal. The patient tolerated the procedure well and was taken to recovery room in stable condition. Job ID: [id number]
[2020-01-20] MEDS: D5 1/2 NS w/20 mEq KCL 1,000 ML IV SCH ×3 (01:40→17:49)
[2020-01-20] MEDS: Piperacillin/Tazobactam 4.5 GM in Sodium Chloride 0.9% 100 ML IVPB SCH ×4 (05:54→23:47)
[2020-01-20] MEDS: Ketorolac Tromethamine 30 MG/ML VIAL IVP SCH ×4 (05:54→23:47)
[2020-01-20 06:03] LABS: #Lymphocytes 1.2 thou/uL (1.20-3.40); #Monocytes 0.4 thou/uL (0.11-0.59); #Neutrophils 5.9 thou/uL (1.40-6.50); %Basophils 0.3 % (0.0-1.0); %Eosinophils 0.6 % (0.0-10.0); %Lymphocytes 15.6 % (21.0-51.0); %Monocytes 5.7 % (0.0-10.0); %Neutrophils 77.8 % (42.0-75.0); Hemoglobin 12.5 g/dL (14.0-18.0); Mean Corpuscular HGB CONC 34.4 g/dL (32.0-36.0); Mean Corpuscular Hemoglobin 31.7 pg (27.0-31.0); Mean Corpuscular Volume 92.4 fL (78.0-98.0); Mean Platelet Volume 7.1 fL (7.4-10.4); Platelet Count 209 thou/uL (130-400); Red Blood Cell (RBC) Count 3.93 mill/uL (4.70-6.10); White Blood Cell (WBC) Count 7.6 thou/uL (4.8-10.8)
[2020-01-20] MEDS: Ipratropium Bromide 2.5 ml Neb NEB SCH ×5 (06:22→23:19)
[2020-01-20 06:23] LABS: Anion Gap 12 mmol/L (10-20); BUN (Urea Nitrogen) 8 mg/dL (8.4-25.7); Calc. Creatinine Clearance 137 mL/min (70-130); Calcium 7.6 mg/dL (7.8-10.44); Carbon Dioxide 22 mmol/L (22-29); Chloride 107 mmol/L (98-107); Estimated GFR-MDRD Greater than 90; Glucose 120 mg/dL (70-105); Potassium 3.8 mmol/L (3.5-5.1); Sodium 137 mmol/L (136-145)
[2020-01-20] MEDS: Mometasone/Formoterol 120 PUFF INHALER INH SCH ×2 (06:32→19:18)
[2020-01-20] MEDS: Lisinopril 10 MG TAB PO SCH (08:51)
[2020-01-20] MEDS: Famotidine/PF 20 mg/2ml Vial SLOW IVP SCH ×2 (08:52→21:12)
[2020-01-20] MEDS: Benzonatate 100 MG CAP PO SCH (08:52)
[2020-01-20] MEDS: Amlodipine 5 MG TAB PO SCH ×2 (08:52→21:11)
--- NOTE | 2020-01-20 09:33 | PRG ---
DATE OF SERVICE: 01/20/2020 SUBJECTIVE: Mr. Ross is postoperative day #1 from laparoscopic washout. He appeared to have had a perforated colon, probably near his anastomosis from his prior sigmoid colectomy performed last June. He had extensive inflammation associated with that particular focus and the rest of his abdominal contents were relatively unremarkable. There was no purulence or severe peritonitis. Drain remains intact. He complains of appropriate postoperative pain. He has tolerated water overnight uneventfully and has voided. OBJECTIVE: VITAL SIGNS: Temperature 98.4, pulse 93, and blood pressure is 124/79. LUNGS: Clear to auscultation. ABDOMEN: Minimally tender. Incisions are healing nicely. Drain is intact in his epigastrium and the dressing is changed at that location. Bowel sounds are present, but hypoactive. LABORATORY DATA: White blood cell count is stable at 7.6, hemoglobin is 12.5. Chemistry panel reveals no significant electrolyte abnormality. ASSESSMENT AND PLAN: The patient is stable following laparoscopic washout of suspected perforated diverticulitis. I would plan to continue to treat him conservatively and advance his diet as he tolerates. I have spoken to him again about the imperative need for smoking cessation. Given his recurrent problems with this particular area, I suspect that he will require anastomotic resection. I would probably like to defer this for a period of time (probably at least 3 months). I would imagine he will be here in the hospital for another day or two. Job ID: [id number]
[2020-01-20] MEDS: Morphine 4 MG/ML VIAL SLOW IVP PRN (21:12)
[2020-01-21] MEDS: D5 1/2 NS w/20 mEq KCL 1,000 ML IV SCH ×3 (01:06→17:38)
[2020-01-21] MEDS: Morphine 4 MG/ML VIAL SLOW IVP PRN (04:52)
[2020-01-21] MEDS: Ipratropium Bromide 2.5 ml Neb NEB SCH ×3 (05:15→18:48)
[2020-01-21] MEDS: Mometasone/Formoterol 120 PUFF INHALER INH SCH ×2 (05:16→18:48)
[2020-01-21] MEDS: Piperacillin/Tazobactam 4.5 GM in Sodium Chloride 0.9% 100 ML IVPB SCH ×3 (05:58→17:32)
[2020-01-21] MEDS: Ketorolac Tromethamine 30 MG/ML VIAL IVP SCH ×3 (05:58→17:32)
[2020-01-21] MEDS: Famotidine/PF 20 mg/2ml Vial SLOW IVP SCH (08:23)
[2020-01-21] MEDS: Lisinopril 10 MG TAB PO SCH (08:23)
[2020-01-21] MEDS: Amlodipine 5 MG TAB PO SCH ×2 (08:24→20:42)
[2020-01-21] MEDS: Benzonatate 100 MG CAP PO SCH (08:24)
[2020-01-21] MEDS: metroNIDAZOLE 500 MG TAB PO SCH (20:41)
[2020-01-21] MEDS: Ketorolac Tromethamine 30 MG/ML VIAL IVP PRN (20:47)
[2020-01-22] MEDS: Ipratropium Bromide 2.5 ml Neb NEB SCH ×2 (01:39→07:42)
[2020-01-22] MEDS: Ketorolac Tromethamine 30 MG/ML VIAL IVP PRN (05:09)
[2020-01-22 06:10] LABS: #Eosinphils 0.2 thou/uL (0.0-0.7); #Lymphocytes 1.2 thou/uL (1.20-3.40); #Monocytes 0.6 thou/uL (0.11-0.59); #Neutrophils 3.8 thou/uL (1.40-6.50); %Basophils 0.2 % (0.0-1.0); %Eosinophils 3.9 % (0.0-10.0); %Monocytes 9.7 % (0.0-10.0); %Neutrophils 65.2 % (42.0-75.0); Mean Corpuscular Hemoglobin 31.1 pg (27.0-31.0); Mean Corpuscular Volume 91.4 fL (78.0-98.0); Mean Platelet Volume 6.9 fL (7.4-10.4); Platelet Count 270 thou/uL (130-400); RBC Distribution Width 12.9 % (11.5-14.5); Red Blood Cell (RBC) Count 4.17 mill/uL (4.70-6.10); White Blood Cell (WBC) Count 5.8 thou/uL (4.8-10.8)
[2020-01-22] MEDS: Mometasone/Formoterol 120 PUFF INHALER INH SCH (07:44)
[2020-01-22] MEDS: metroNIDAZOLE 500 MG TAB PO SCH (08:36)
[2020-01-22] MEDS: Lisinopril 10 MG TAB PO SCH (08:36)
[2020-01-22] MEDS: Amlodipine 5 MG TAB PO SCH (08:37)
[2020-01-22] MEDS: Benzonatate 100 MG CAP PO SCH (08:37)
[2020-01-22 11:32] VITALS: BP 137/88; TEMP 98.8
--- NOTE | 2020-01-22 12:23 | EKG ---
Test Reason : Blood Pressure : / mmHG Vent. Rate : 089 BPM Atrial Rate : 089 BPM P-R Int : 160 ms QRS Dur : 078 ms QT Int : 354 ms P-R-T Axes : 062 -06 072 degrees QTc Int : 430 ms Normal sinus rhythm Possible Left atrial enlargement Septal infarct , age undetermined Abnormal ECG Confirmed by CHANEL MARIA [id number]), legal editor MAURY POE ([id number] on 01/22/2020 12:23:37 PM Referred By: Confirmed By:CHANEL Porter
--- NOTE | 2020-01-22 21:12 | DIS ---
DATE OF ADMISSION: 01/18/2020 DATE OF DISCHARGE: 01/22/2020 ADMISSION DIAGNOSIS: Abdominal pain with perforated viscus. DISCHARGE DIAGNOSIS: Abdominal pain with perforated viscus with apparent perforation coming from the area of sigmoid colon anastomosis. PROCEDURES PERFORMED: Laparoscopic washout, drainage of intraabdominal fluid. ADMISSION HISTORY: The patient is a 59-year-old white male. He is well known to myself from laparoscopic sigmoid colectomy in June of 2019. He had presented to the emergency room complaining of acute abdominal pain. CT scan revealed some extraluminal gas consistent with perforation. HOSPITAL COURSE: He was admitted to the hospital and placed on IV antibiotics. The following day, he still had significant abdominal discomfort and unusually, this seemed most in the right lower quadrant. I recommended laparoscopy with washout. This was performed revealing no evidence of substantial intraabdominal infection, although there was quite a few adhesions. The only area of severe inflammation was down in the left upper aspect of the pelvis. I could not mobilize the colon away from the abdominal wall in that location, but I suspect this was the area of perforation. There was small bowel adherent in that area that I was able to mobilize. The abdomen was extensively washed out and a drain was placed. He has had an uneventful postoperative course. He has remained afebrile with normal vital signs since surgery. He had a leukocytosis when he presented of 11, but has had no elevated white blood cell count since he presented. Today, he is doing well. He is tolerating a regular diet. He is passing flatus regularly. Denies nausea or vomiting. He has had small bowel movement earlier. ASSESSMENT: He appears to be stable for discharge. I will discharge him on oral antibiotics for another five days. He is instructed to take MiraLAX daily and one bottle of magnesium citrate today when he gets home. I stressed to him the importance of bowel habit regularity for this to heal. I have strongly recommended complete smoking cessation. I would hope to perform an elective colon resection of this inflamed area. He has had some form of problem off and on ever since his surgery and I suspect he would benefit from resection of this. However, I would not plan on doing this as long as he is still smoking. We will probably want to get both barium enema and colonoscopy prior to his eventual resection. I will see him back in 2 weeks. Job ID: [id number]
--- NOTE | 2020-01-24 04:47 | PQF ---
STEVE LIRIANO MICHAEL W MD [id number] [facility] [id number] CLINICAL DOCUMENTATION CLARIFICATION FORM: POST DISCHARGE Addendum to original discharge summary date: ____ Late entry note date: __ DATE: 01/24/2020 ATTN: Rex Leija Please exercise your independent, professional judgment in responding to the clarification form. Clinical indicators are provided on the bottom of this form for your review Please check appropriate box(s): [ ] Intestinal Perforation due to Postoperative complication of Anastomosis site [ x ] Intestinal Perforation is not Postoperative complication of Anastomosis site [ ] Other diagnosis [ ] Unable to determine CLINICAL INDICATORS - SIGNS / SYMPTOMS / LABS Laboratory 01/17 WBC 11.0, MPV 6.8,Neutrophils 76.0, Lymphocytse 15.7. Neutrophils 8.4 H&P p1 01/17 Dr Alvarado The pt retured to the ER last night. He complained of severe abdominal pain. H&P p1 01/[address] scan was obtained, which showing free air up around the liver and close to the rectosigmoid anastomosis H&P p2 01/17 Dr Alvarado The patient with a perforation of his colon. This may be at the level of anastomosis or may be another adjacent area, it is difficult if not impossible to say Operative report p1 01/17 Dr Alvarado Consistent with a microperforation of colon , This appeared to be likley in the area of anastomosis from his prior sigmoid colectomy RISK FACTORS H&P p1 01/17 59 year-old white male H&P p1 01/17 s/p Laparoscopic sigmoid colectomy June 2019 H&P p1 01/17 Current smoker H&P p2 01/17 History of Diverticulitis TREATMENT: MAR 01/17 IV Ciprofloxacin 400mg JAN 10 IV Toradol 30mg JAN 10 IV Morphine 4mg JAN 10 IV Zosyn 4.5 mg JAN [address] abdomen ordered 01/17 Exploratory laparoscopy, lysis of admissions, extensive intraabdominal washout using 6L of saline and placement of intraabdominal drain by Dr Alvarado on 01/17 (This form is maintained as a part of the permanent medical record) 2014 [employer]. All Rights Reserved [email or web address]
== END 2020-01-22 13:01 | disposition home or self-care (01) | DRG 395 ==
LOC: ERS 16:10 → SJJU 20:34
PROVIDERS: ADMIT Specialist; ATTEND Specialist
PROC: 0W9G40Z Drainage of Peritoneal Cavity with Drainage Device, Percutaneous Endoscopic Approach (ICD-10-PCS; principal; 2020-01-18)
DX: K63.1 Perforation of intestine (nontraumatic) (principal); J44.9 Chronic obstructive pulmonary disease, unspecified; F17.200 Nicotine dependence, unspecified, uncomplicated; E78.00 Pure hypercholesterolemia, unspecified; Z85.118 Personal history of other malignant neoplasm of bronchus and lung; Z79.899 Other long term (current) drug therapy; Z88.6 Allergy status to analgesic agent; Z88.8 Allergy status to other drugs, medicaments and biological substances; Z90.49 Acquired absence of other specified parts of digestive tract; Z79.51 Long term (current) use of inhaled steroids
CPT/HCPCS: 36415; 74177; 80048; 80053; 81003; 83605; 83690; 85025; 93005; 94640; 96365; 96367; 96375; J0744; J1170; J1885; J2001; J2270; J2405; J2543; J2704; J3010; J3490; Q9967; S0020; S0028

== ENCOUNTER 2020-07-20 14:44 | Outpatient (CLI) | payer OTHER | END 2020-07-20 14:45 | disposition home or self-care (01) | LOC: CTENTCT 14:44 | PROVIDERS: ATTEND Otolaryngology Plastic Surgery within the Head & Neck | DX: J34.2 Deviated nasal septum (principal) | CPT/HCPCS: 70486 ==

== ENCOUNTER 2020-09-22 06:41 | Outpatient (CLI) | payer OTHER ==
[2020-09-23 20:30] LABS: SARS-CoV-2 MS2 Positive; SARS-CoV-2 N Gene Negative; SARS-CoV-2 S Gene Negative; SARS-CoV-2 by NAA Not Detected (NotDetected); SARS-CoV-2 orf1ab Negative
--- NOTE | 2020-09-27 06:54 | EKG ---
Test Reason : Blood Pressure : / mmHG Vent. Rate : 082 BPM Atrial Rate : 082 BPM P-R Int : 164 ms QRS Dur : 088 ms QT Int : 378 ms P-R-T Axes : 071 030 081 degrees QTc Int : 441 ms Sinus rhythm with occasional Premature ventricular complexes Otherwise normal ECG No previous ECGs available Confirmed by JAILENE DIAZ MD ([id number]) on 09/27/2020 6:54:40 AM Referred By: VJ Confirmed By:JAILENE DIAZ MD
== END 2020-09-22 06:42 | disposition home or self-care (01) ==
LOC: LABBT 06:41
PROVIDERS: ATTEND Otolaryngology Plastic Surgery within the Head & Neck
DX: Z01.818 Encounter for other preprocedural examination (principal); Z20.828 Contact with and (suspected) exposure to other viral communicable diseases; J34.2 Deviated nasal septum; J34.89 Other specified disorders of nose and nasal sinuses; J34.3 Hypertrophy of nasal turbinates; J32.2 Chronic ethmoidal sinusitis; J32.1 Chronic frontal sinusitis; J32.3 Chronic sphenoidal sinusitis; J32.0 Chronic maxillary sinusitis; J33.9 Nasal polyp, unspecified; S02.2XXA Fracture of nasal bones, initial encounter for closed fracture
CPT/HCPCS: 87635; 93005; 93010; U0003

== ENCOUNTER 2020-09-27 10:51 | Day surgery (SDC) | payer OTHER ==
[2020-09-26 11:32] VITALS: BMI 31.1
[2020-09-27] MEDS ORDERED: Lidocaine 1% PF 5 ML VIAL ONE (10:55)
[2020-09-27] MEDS ORDERED: PROPOFOL 200 MG/20 ML VIAL ONE (10:55)
[2020-09-27] MEDS ORDERED: Labetalol HCl 100 MG/20 ML VIAL ONE (10:55)
[2020-09-27] MEDS ORDERED: Ondansetron PF 4 MG/2 ML Vial ONE (10:55)
[2020-09-27] MEDS ORDERED: Dexamethasone 20 MG/5 ML VIAL ONE (10:55)
[2020-09-27] MEDS ORDERED: Fentanyl 100 MCG/2 ML VIAL ONE ×3 (11:17→14:51)
[2020-09-27] MEDS ORDERED: AFRIN NASAL MIST 15 ML BOT ONE ×2 (11:35→15:22)
[2020-09-27] MEDS ORDERED: Lidocaine 1% w/Epinephrine 1:100K 20 ML VIAL ONE (12:22)
[2020-09-27] MEDS ORDERED: Bacitracin Zinc Ointment 30 gm TUBE ONE (12:22)
--- NOTE | 2020-09-28 11:42 | OP ---
DATE OF PROCEDURE: 09/27/2020 PREOPERATIVE DIAGNOSES: 1. Chronic rhinosinusitis. 2. Nasal septal deviation. 3. Bilateral inferior turbinate hypertrophy. 4. Bilateral nasal valve collapse. 5. Left middle turbinate codie bullosa. 6. Nasal obstruction. 7. Bilateral closed nasal fractures. POSTOPERATIVE DIAGNOSES: 1. Chronic rhinosinusitis. 2. Nasal septal deviation. 3. Bilateral inferior turbinate hypertrophy. 4. Bilateral nasal valve collapse. 5. Left middle turbinate codie bullosa. 6. Nasal obstruction. 7. Bilateral closed nasal fractures. PROCEDURES PERFORMED: 1. Bilateral endoscopic sinus surgery, total ethmoidectomies. 2. Bilateral endoscopic sinus surgery, maxillary antrostomies. 3. Bilateral endoscopic sinus surgery, frontal sinusotomies. 4. Bilateral endoscopic sinus surgery, sphenoidotomies. 5. Nasoseptoplasty. 6. Bilateral inferior turbinate submucosal resection. 7. Bilateral repair of nasal wall. 8. Bilateral closed reduction of nasal fractures. ESTIMATED BLOOD LOSS: 50 mL. COMPLICATIONS: None. ANESTHESIA: GETA. PROCEDURE IN DETAIL: Patient was taken to the operating room and placed supine on the table. General endotracheal anesthesia was obtained by the anesthesia staff. Then 1% lidocaine with 1:100,000 epinephrine was injected into the nasal septum as well as the inferior turbinates. The patient was prepped and draped in standard surgical fashion. The Afrin pledgets were then removed. A Yared incision was made on the left nasal septum. Submucoperichondrial dissection was performed bilaterally of the deviated portions of the septum, which included the maxillary crest and the crest deviation, as well as the mid portion of the septum. Cartilage and bony deviation was removed, leaving a generous caudal and dorsal strut. Any straight pieces of cartilage were then placed within the cartilage press, pressed, straightened, and then placed between the mucoperichondrial flaps, which were then closed using a 4-0 gut stitch. The inferior turbinates were then punctured with the submucosal Coblation machine, and 3 separate coblations were delivered to the anterior inferior portion of the inferior turbinates. Following this, the nasal cavity was irrigated. All debris was removed. An orogastric tube was placed. Gastric contents and Macias splints were then placed in the nasal cavity and sutured with a 3-0 silk stitch. Following this, a 0-degree endoscope was advanced into the middle meatus. The left middle turbinate codie bullosa deformity was incised vertically using a sickle knife and the lateral wall of the codie bullosa was resected using the 0-degree microdebrider and straight Blakesley forceps. Following this, the middle turbinates were gently medialized with a Ballico elevator and the uncinate process was visualized. The uncinate process was then anteriorly fractured using a ball-ended probe bilaterally and the uncinate was then removed bilaterally using the microdebrider blade and up-biting Blakesley forceps bilaterally. Following this, the natural maxillary sinus ostia was identified and was widened using a 40-degree microdebrider blade and a straight Blakesley forceps bilaterally. Following this, the ethmoidal bulla was identified and was punctured on its medial and inferior aspect using the microdebrider and the microdebrider and up-biting Blakesley forceps were then used to remove the ethmoidal bulla and open the anterior ethmoidal cells bilaterally. Following this, the grand lamella was identified bilaterally and a 0-degree microdebrider blade was used to puncture through the grand lamella into the posterior ethmoidal cells bilaterally. Working from posterior to anterior keeping the cribriform plate in visualization, the ethmoidal cells were opened using the microdebrider and 45-degree Blakesley forceps bilaterally. Following this, the anterior wall of the sphenoid sinus was identified and a puncture was made into the sphenoid sinuses bilaterally. The sphenoidotomies were then widened in a medial and inferior direction using the microdebrider blade bilaterally. Following this, 45-degree endoscope was used to visualize the frontal sinus ostia and the frontal sinus ostia was widened bilaterally using the 40-degree microdebrider blade and up-biting Blakesley forceps. Following this, the nasal cavity was irrigated. NasoPore packing was placed within the middle meatus. Macias splints were placed and secured. Lateral osteotomies were then created using the 4-mm osteotome after making a small endonasal incision. The nasal bones were then mobilized and were reapproximated in the normal anatomic position. A small transcartilaginous incision was made to the nose to approach the lateral nasal wall bilaterally. A subperiosteal pocket was created as the graft was placed into an onlay fashion over the nasal bones bilaterally, which in turn supported the lower lateral cartilages inferiorly. The incision was then closed using a 5-0 chromic gut stitch bilaterally. The patient tolerated the procedure well. An external Osborne splint was then placed. Job ID: [id number]
== END 2020-09-27 16:11 | disposition home or self-care (01) ==
LOC: SDC 10:51
PROVIDERS: ATTEND Otolaryngology Plastic Surgery within the Head & Neck
PROC: 09CX8ZZ Extirpation of Matter from Left Sphenoid Sinus, Via Natural or Artificial Opening Endoscopic (ICD-10-PCS; principal; 2020-09-27)
PROC: 09BL8ZZ Excision of Nasal Turbinate, Via Natural or Artificial Opening Endoscopic (ICD-10-PCS; principal; 2020-09-27)
PROC: 09BM8ZZ Excision of Nasal Septum, Via Natural or Artificial Opening Endoscopic (ICD-10-PCS; principal; 2020-09-27)
PROC: 099R8ZZ Drainage of Left Maxillary Sinus, Via Natural or Artificial Opening Endoscopic (ICD-10-PCS; principal; 2020-09-27)
PROC: 09BV8ZZ Excision of Left Ethmoid Sinus, Via Natural or Artificial Opening Endoscopic (ICD-10-PCS; principal; 2020-09-27)
PROC: 09BU8ZZ Excision of Right Ethmoid Sinus, Via Natural or Artificial Opening Endoscopic (ICD-10-PCS; principal; 2020-09-27)
PROC: 09BT8ZZ Excision of Left Frontal Sinus, Via Natural or Artificial Opening Endoscopic (ICD-10-PCS; principal; 2020-09-27)
PROC: 09BS8ZZ Excision of Right Frontal Sinus, Via Natural or Artificial Opening Endoscopic (ICD-10-PCS; principal; 2020-09-27)
PROC: 09CW8ZZ Extirpation of Matter from Right Sphenoid Sinus, Via Natural or Artificial Opening Endoscopic (ICD-10-PCS; principal; 2020-09-27)
PROC: 099Q8ZZ Drainage of Right Maxillary Sinus, Via Natural or Artificial Opening Endoscopic (ICD-10-PCS; principal; 2020-09-27)
PROC: 8E09XBZ Computer Assisted Procedure of Head and Neck Region (ICD-10-PCS; principal; 2020-09-27)
DX: J32.8 Other chronic sinusitis (principal); J34.2 Deviated nasal septum; J34.3 Hypertrophy of nasal turbinates; J34.89 Other specified disorders of nose and nasal sinuses; J30.1 Allergic rhinitis due to pollen; J30.81 Allergic rhinitis due to animal (cat) (dog) hair and dander; F32.9 Major depressive disorder, single episode, unspecified; Z79.899 Other long term (current) drug therapy; Z88.0 Allergy status to penicillin; Z88.8 Allergy status to other drugs, medicaments and biological substances
CPT/HCPCS: J1100; J2405; J2704; J3010

== ENCOUNTER 2020-11-17 08:58 | Outpatient (CLI) | payer OTHER ==
--- NOTE | 2020-11-17 13:58 | PET ---
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 TECHNIQUE: PET scan with CT attenuation correction was performed from the base of the brain through the proximal thighs following the intravenous administration of 12.5 millicuries of 15-fluorodeoxyglucose in the right antecubital fossa. COMPARISON: Previous PET scans are not available for comparison. CORRELATION: CT chest, abdomen and pelvis dated 10/23/20. FINDINGS: There is a hypometabolic right paratracheal lymph node with an SUV of 5.1. No ashlee hypometabolism is seen in the neck, axillae, hilar regions, abdomen or pelvis. No hypermetabolic pulmonary nodules, li lynne, adrenal or skeletal lesions are seen. There is physiologic activity in the GI and tracts and the visualized portions of the brain. There is increased upatake in the right posterior shoulder musculature likely due to compensatory hyp ertrophy secondary to atrophy of posterior scapular muscles. The CT scan used for attenuation correction demonstrates no pleural effusions or ascites. 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 POS: JOHNNIE
== END 2020-11-17 08:59 | disposition home or self-care (01) ==
LOC: PET 08:58
DX: C34.02 Malignant neoplasm of left main bronchus (principal)
CPT/HCPCS: 78815; A9552

== ENCOUNTER 2021-01-10 09:20 | Outpatient (CLI) | payer OTHER ==
[2021-01-10] MEDS ORDERED: Magnevist 469MG/ML 20 ML VIAL ONE (14:12)
== END 2021-01-10 09:21 | disposition home or self-care (01) ==
LOC: MRI 09:20
PROVIDERS: ATTEND Internal Medicine Hematology & Oncology
DX: R42 Dizziness and giddiness (principal); I67.82 Cerebral ischemia
CPT/HCPCS: 70553; A9579

== ENCOUNTER 2021-06-26 11:30 | Observation (INO) | payer OTHER ==
[2021-06-26 12:09] LABS: #Eosinphils 0.1 thou/uL (0.0-0.7); #Lymphocytes 1.1 thou/uL (1.20-3.40); #Monocytes 0.6 thou/uL (0.11-0.59); #Neutrophils 5.7 thou/uL (1.40-6.50); %Basophils 0.6 % (0.0-1.0); %Eosinophils 1.5 % (0.0-10.0); %Lymphocytes 14.7 % (21.0-51.0); %Monocytes 7.6 % (0.0-10.0); %Neutrophils 75.6 % (42.0-75.0); Hemoglobin 14.9 g/dL (14.0-18.0); Mean Corpuscular HGB CONC 34.3 g/dL (32.0-36.0); Mean Corpuscular Volume 90.2 fL (78.0-98.0); Mean Platelet Volume 6.6 fL (7.4-10.4); Platelet Count 349 thou/uL (130-400); RBC Distribution Width 13.4 % (11.5-14.5); Red Blood Cell (RBC) Count 4.82 mill/uL (4.70-6.10); White Blood Cell (WBC) Count 7.6 thou/uL (4.8-10.8)
[2021-06-26] MEDS ORDERED: Metoprolol Tartrate 5 MG/5 ML VIAL ONE ×2 (12:12→13:20)
[2021-06-26] MEDS ORDERED: Metoprolol Tartrate 25 MG TAB ONE (12:12)
[2021-06-26 12:42] LABS: ALT (SGPT) 30 U/L (8-55); AST (SGOT) 26 U/L (5-34); Albumin 3.8 g/dL (3.4-4.8); Alkaline Phosphatase 75 U/L (40-110); Anion Gap 10 mmol/L (10-20); BUN (Urea Nitrogen) 11 mg/dL (8.4-25.7); Bilirubin, Total 0.3 mg/dL (0.2-1.2); Calc. Creatinine Clearance 0 mL/min (70-130); Calcium 9.2 mg/dL (7.8-10.44); Carbon Dioxide 27 mmol/L (23-31); Chloride 107 mmol/L (98-107); Glucose 86 mg/dL (80-115); Lipase 105 U/L (8-78); Magnesium 1.7 mg/dL (1.6-2.6); Potassium 3.9 mmol/L (3.5-5.1); Protein, Total 6.8 g/dL (5.8-8.1); Sodium 140 mmol/L (136-145)
[2021-06-26] MEDS ORDERED: Acetaminophen 500 MG TAB ONE (13:20)
[2021-06-26] MEDS ORDERED: Ibuprofen 800 MG TAB ONE (13:20)
[2021-06-26] MEDS ORDERED: Ibuprofen 200 MG TAB ONE (13:21)
[2021-06-26] MEDS ORDERED: hydrALAZINE 20 MG/ML VIAL SLOW IVP PRN (16:13)
[2021-06-26] MEDS ORDERED: Acetaminophen 325 MG TAB PO PRN (16:13)
[2021-06-26] MEDS ORDERED: HumaLOG 300 UNITS/3 ML VIAL SC PRN ×2 (16:13)
[2021-06-26] MEDS ORDERED: Ondansetron ODT 4 MG TAB PO PRN (16:13)
[2021-06-26] MEDS ORDERED: Dextrose 5% in Water 1,000 ML IV PRN (16:13)
[2021-06-26] MEDS ORDERED: Dextrose 50% Abboject 50 ML SYRINGE SLOW IVP PRN (16:13)
[2021-06-26 16:21] LABS: Troponin I Less than 0.010 ng/mL (< 0.028)
[2021-06-26 16:29] VITALS: BMI 25.7
[2021-06-26 20:25] LABS: Troponin I Less than 0.010 ng/mL (< 0.028)
[2021-06-26] MEDS: Flecainide 50 MG TAB PO SCH (20:28)
[2021-06-26] MEDS: Metoprolol Tartrate 25 MG TAB PO SCH (20:28)
[2021-06-26] MEDS: Famotidine 20 MG TAB PO SCH (20:28)
[2021-06-26] MEDS: Mometasone 100 MCG/Formoterol 5 MCG 120 PUFF INHALER INH SCH (20:35)
[2021-06-26] MEDS ORDERED: Metoprolol Tartrate 25 MG TAB PO SCH (21:00)
[2021-06-27 04:33] LABS: #Eosinphils 0.2 thou/uL (0.0-0.7); #Monocytes 0.6 thou/uL (0.11-0.59); #Neutrophils 4.6 thou/uL (1.40-6.50); %Basophils 0.3 % (0.0-1.0); %Eosinophils 3.3 % (0.0-10.0); %Lymphocytes 15.3 % (21.0-51.0); %Neutrophils 72.1 % (42.0-75.0); Hemoglobin 13.8 g/dL (14.0-18.0); Mean Corpuscular Hemoglobin 30.8 pg (27.0-31.0); Mean Corpuscular Volume 90.4 fL (78.0-98.0); Mean Platelet Volume 6.7 fL (7.4-10.4); Platelet Count 304 thou/uL (130-400); RBC Distribution Width 13.3 % (11.5-14.5); Red Blood Cell (RBC) Count 4.47 mill/uL (4.70-6.10); White Blood Cell (WBC) Count 6.4 thou/uL (4.8-10.8)
[2021-06-27 04:48] LABS: Anion Gap 11 mmol/L (10-20); BUN (Urea Nitrogen) 12 mg/dL (8.4-25.7); Calc. Creatinine Clearance 116 mL/min (70-130); Carbon Dioxide 26 mmol/L (23-31); Chloride 106 mmol/L (98-107); Glucose 97 mg/dL (80-115); Potassium 3.8 mmol/L (3.5-5.1); Sodium 139 mmol/L (136-145)
[2021-06-27] MEDS: Mometasone 100 MCG/Formoterol 5 MCG 120 PUFF INHALER INH SCH (08:39)
[2021-06-27] MEDS ORDERED: Enoxaparin Sodium 40 MG/0.4 ML SYRINGE SC SCH (09:00)
[2021-06-27] MEDS: Famotidine 20 MG TAB PO SCH (09:08)
[2021-06-27] MEDS: Metoprolol Tartrate 25 MG TAB PO SCH (09:08)
[2021-06-27] MEDS: Flecainide 50 MG TAB PO SCH (09:09)
[2021-06-27 15:46] VITALS: BP 135/78; TEMP 97.9
[2021-06-27 16:35] LABS: SARS-CoV-2 PCR by NAA Not Detected (NotDetected)
[2021-06-27] MEDS ORDERED: Apixaban 5 MG TAB PO SCH (21:00)
[2021-06-28] MEDS ORDERED: Lisinopril 5 MG TAB PO SCH (09:00)
[2021-06-28] MEDS ORDERED: Amlodipine 5 MG TAB PO SCH (09:00)
== END 2021-06-27 17:30 | disposition home or self-care (01) ==
LOC: ERS 11:30 → 2NO 14:07
PROVIDERS: ADMIT Internal Medicine; ATTEND Internal Medicine
DX: I48.91 Unspecified atrial fibrillation (principal); C34.90 Malignant neoplasm of unspecified part of unspecified bronchus or lung; D63.0 Anemia in neoplastic disease; I47.1 Supraventricular tachycardia; I10 Essential (primary) hypertension; J44.9 Chronic obstructive pulmonary disease, unspecified; E78.00 Pure hypercholesterolemia, unspecified; F17.210 Nicotine dependence, cigarettes, uncomplicated; I31.3 Pericardial effusion (noninflammatory); E11.40 Type 2 diabetes mellitus with diabetic neuropathy, unspecified; I08.8 Other rheumatic multiple valve diseases; Z79.899 Other long term (current) drug therapy; Z88.5 Allergy status to narcotic agent; Z88.6 Allergy status to analgesic agent; Z90.49 Acquired absence of other specified parts of digestive tract; Z20.822 Contact with and (suspected) exposure to COVID-19
CPT/HCPCS: 36415; 36416; 71045; 71275; 80048; 80053; 83690; 83735; 83880; 84443; 84484; 85025; 85379; 93005; 93306; 96372; 96374; G0378; J1650; Q9967; U0003; U0005

== ENCOUNTER 2021-08-17 09:41 | Outpatient (CLI) | payer OTHER | END 2021-08-17 09:42 | disposition home or self-care (01) | LOC: BICRAD 09:41 | PROVIDERS: ATTEND Physician Assistant | DX: M54.40 Lumbago with sciatica, unspecified side (principal); M47.816 Spondylosis without myelopathy or radiculopathy, lumbar region; Z23 Encounter for immunization | CPT/HCPCS: 72100 ==

== ENCOUNTER 2021-08-28 11:25 | Outpatient (CLI) | payer OTHER | END 2021-08-28 11:26 | disposition home or self-care (01) | LOC: PET 11:25 | PROVIDERS: ATTEND Internal Medicine Hematology & Oncology | DX: C34.02 Malignant neoplasm of left main bronchus (principal); R91.8 Other nonspecific abnormal finding of lung field | CPT/HCPCS: 78815; A9552 ==

== ENCOUNTER 2021-09-10 14:21 | Observation (INO) | payer OTHER ==
[2021-09-10 18:32] VITALS: BMI 27.7
[2021-09-10 20:26] LABS: Troponin I 0.014 ng/mL (< 0.028)
[2021-09-10] MEDS ORDERED: Nitroglycerin 0.4 MG TAB (25 Tab Bottle) SL PRN (20:59)
[2021-09-10] MEDS ORDERED: Albuterol Sulfate 2.5 mg/3 ml Neb NEB PRN (21:04)
[2021-09-10] MEDS ORDERED: Dextrose 50% Abboject 50 ML SYRINGE SLOW IVP PRN (21:05)
[2021-09-10] MEDS ORDERED: Guaifenesin DM 100-10/5 ML UDCUP PO PRN (21:05)
[2021-09-10] MEDS ORDERED: Dextrose 5% in Water 1,000 ML IV PRN (21:05)
[2021-09-10] MEDS ORDERED: HumaLOG 300 UNITS/3 ML VIAL SC PRN ×2 (21:05)
[2021-09-10] MEDS ORDERED: Magnesium 2 GM/50 ML 2 GM in Premix Bag 1 BAG IVPB SCH (21:30)
[2021-09-10] MEDS: Morphine 4 MG/ML VIAL SLOW IVP PRN (21:31)
[2021-09-10] MEDS: Gabapentin 300 MG CAP PO SCH (21:31)
[2021-09-10 22:48] LABS: Troponin I Less than 0.010 ng/mL (< 0.028)
[2021-09-11 00:09] LABS: SARS-CoV-2 PCR by NAA Not Detected (NotDetected)
[2021-09-11] MEDS: Acetaminophen 325 MG TAB PO PRN ×3 (01:20→17:22)
[2021-09-11] MEDS: Morphine 4 MG/ML VIAL SLOW IVP PRN ×3 (04:43→20:27)
[2021-09-11 06:02] LABS: #Eosinphils 0.2 thou/uL (0.0-0.7); #Lymphocytes 1.4 thou/uL (1.20-3.40); #Monocytes 0.5 thou/uL (0.11-0.59); %Basophils 0.5 % (0.0-1.0); %Eosinophils 4.6 % (0.0-10.0); %Lymphocytes 27.2 % (21.0-51.0); %Monocytes 9.5 % (0.0-10.0); %Neutrophils 58.2 % (42.0-75.0); Hemoglobin 14.1 g/dL (14.0-18.0); Mean Corpuscular HGB CONC 33.1 g/dL (32.0-36.0); Mean Corpuscular Hemoglobin 30.4 pg (27.0-31.0); Mean Corpuscular Volume 91.6 fL (78.0-98.0); Mean Platelet Volume 7.1 fL (7.4-10.4); Platelet Count 232 thou/uL (130-400); RBC Distribution Width 13.1 % (11.5-14.5); Red Blood Cell (RBC) Count 4.63 mill/uL (4.70-6.10); White Blood Cell (WBC) Count 5.1 thou/uL (4.8-10.8)
[2021-09-11 06:06] LABS: Hemoglobin A1c 5.7 % (4.0-6.0)
[2021-09-11 06:27] LABS: Anion Gap 11 mmol/L (10-20); BUN (Urea Nitrogen) 10 mg/dL (8.4-25.7); Calc. Creatinine Clearance 130 mL/min (70-130); Calcium 8.8 mg/dL (7.8-10.44); Carbon Dioxide 27 mmol/L (23-31); Cardiac Risk 5.9 (Less than 4.5); Chloride 104 mmol/L (98-107); Cholesterol 153 mg/dl (< 200 Desired); Glucose 103 mg/dL (80-115); HDL Cholesterol 26 mg/dL (>60 Neg Risk); LDL Cholesterol, Calculated 92 mg/dL; Magnesium 1.9 mg/dL (1.6-2.6); Sodium 138 mmol/L (136-145); Triglycerides 177 mg/dL (Less than 150)
[2021-09-11] MEDS ORDERED: Ipratropium Bromide 2.5 ml Neb ONE (06:27)
[2021-09-11] MEDS: Apixaban 5 MG TAB PO SCH ×2 (08:55→20:27)
[2021-09-11] MEDS: Bupropion 150 MG SR TAB PO SCH ×2 (08:55→20:27)
[2021-09-11] MEDS: Gabapentin 300 MG CAP PO SCH ×2 (08:55→20:26)
[2021-09-11] MEDS: Lisinopril 5 MG TAB PO SCH (08:56)
[2021-09-11] MEDS: Metoprolol Tartrate 25 MG TAB PO SCH ×2 (08:56→20:26)
[2021-09-11] MEDS ORDERED: Magnesium 2 GM/50 ML 2 GM in Premix Bag 1 BAG IVPB SCH (11:45)
[2021-09-11] MEDS ORDERED: Cyclobenzaprine 10 MG TAB PO SCH (12:45)
[2021-09-11] MEDS: Dronedarone HCl 400 MG TAB PO SCH (17:22)
[2021-09-11] MEDS: Cyclobenzaprine 10 MG TAB PO SCH (20:27)
[2021-09-12] MEDS: Acetaminophen 325 MG TAB PO PRN (01:44)
[2021-09-12] MEDS: Morphine 4 MG/ML VIAL SLOW IVP PRN ×2 (03:06→09:27)
[2021-09-12 05:16] LABS: #Eosinphils 0.2 thou/uL (0.0-0.7); #Lymphocytes 0.9 thou/uL (1.20-3.40); #Monocytes 0.4 thou/uL (0.11-0.59); #Neutrophils 2.4 thou/uL (1.40-6.50); %Basophils 0.6 % (0.0-1.0); %Eosinophils 4.2 % (0.0-10.0); %Lymphocytes 24.3 % (21.0-51.0); %Monocytes 9.2 % (0.0-10.0); %Neutrophils 61.8 % (42.0-75.0); Hemoglobin 14.1 g/dL (14.0-18.0); Mean Corpuscular HGB CONC 33.9 g/dL (32.0-36.0); Mean Corpuscular Hemoglobin 31.2 pg (27.0-31.0); Mean Corpuscular Volume 91.9 fL (78.0-98.0); Mean Platelet Volume 6.9 fL (7.4-10.4); Platelet Count 240 thou/uL (130-400); RBC Distribution Width 12.9 % (11.5-14.5); Red Blood Cell (RBC) Count 4.51 mill/uL (4.70-6.10); White Blood Cell (WBC) Count 3.8 thou/uL (4.8-10.8)
[2021-09-12 05:42] LABS: Anion Gap 10 mmol/L (10-20); BUN (Urea Nitrogen) 16 mg/dL (8.4-25.7); Calc. Creatinine Clearance 98 mL/min (70-130); Calcium 9.4 mg/dL (7.8-10.44); Carbon Dioxide 32 mmol/L (23-31); Chloride 104 mmol/L (98-107); Glucose 130 mg/dL (80-115); Magnesium 1.9 mg/dL (1.6-2.6); Potassium 4.5 mmol/L (3.5-5.1); Sodium 141 mmol/L (136-145)
[2021-09-12 08:37] VITALS: BP 137/80; TEMP 98.7
[2021-09-12] MEDS: Gabapentin 300 MG CAP PO SCH (09:21)
[2021-09-12] MEDS: Cyclobenzaprine 10 MG TAB PO SCH (09:21)
[2021-09-12] MEDS: Bupropion 150 MG SR TAB PO SCH (09:21)
[2021-09-12] MEDS: Metoprolol Tartrate 25 MG TAB PO SCH (09:22)
[2021-09-12] MEDS: Apixaban 5 MG TAB PO SCH (09:22)
[2021-09-12] MEDS: Lisinopril 5 MG TAB PO SCH (09:22)
[2021-09-12] MEDS: Dronedarone HCl 400 MG TAB PO SCH (09:22)
[2021-09-12] MEDS ORDERED: Non-Formulary Item 1 EACH (Melatonin [Melatonin] 10 MG Tablet) PO SCH (21:00)
[2021-09-12] MEDS ORDERED: Melatonin 3 MG TAB PO SCH (21:00)
[2021-09-13] MEDS ORDERED: Non-Formulary Item 1 EACH (Umeclidinium Bromide [Incruse Ellipta] 62.5 MCG Blst.W.Dev) INH SCH (09:00)
[2021-09-13] MEDS ORDERED: UMECLIDINIUM BROMIDE 62.5 MCG INH SCH (09:00)
== END 2021-09-12 11:44 | disposition home or self-care (01) ==
LOC: 2SW 14:21
PROVIDERS: ADMIT Internal Medicine; ATTEND Family Medicine
DX: I48.0 Paroxysmal atrial fibrillation (principal); D72.819 Decreased white blood cell count, unspecified; C34.90 Malignant neoplasm of unspecified part of unspecified bronchus or lung; J44.9 Chronic obstructive pulmonary disease, unspecified; E11.9 Type 2 diabetes mellitus without complications; F43.10 Post-traumatic stress disorder, unspecified; I10 Essential (primary) hypertension; G89.29 Other chronic pain; M54.50 Low back pain, unspecified; E78.5 Hyperlipidemia, unspecified; I47.1 Supraventricular tachycardia; E78.00 Pure hypercholesterolemia, unspecified; F17.210 Nicotine dependence, cigarettes, uncomplicated; D64.9 Anemia, unspecified; Z20.822 Contact with and (suspected) exposure to COVID-19; Z92.21 Personal history of antineoplastic chemotherapy; Z92.3 Personal history of irradiation; Z79.890 Hormone replacement therapy
CPT/HCPCS: 36415; 36416; 80048; 80061; 82607; 82746; 83036; 83735; 85025; 93880; J1815; J2270; J3475; U0003; U0005

== ENCOUNTER → 2024-03-09 | Outpatient (CLI) | payer OTHER | LOC: PET 12:30 | PROVIDERS: ATTEND Internal Medicine Hematology & Oncology | DX: C34.12 Malignant neoplasm of upper lobe, left bronchus or lung (principal); K76.89 Other specified diseases of liver; R59.0 Localized enlarged lymph nodes | CPT/HCPCS: 78815; A9552 ==

== ENCOUNTER 2024-04-07 15:18 | Emergency (ER) | payer OTHER ==
[2024-04-07 16:31] LABS: #Basophils 0.05 10x3/uL (0.0-0.2); %Basophils 0.5 % (0.0-1.0); %Eosinophils 0.9 % (0.0-10.0); %Monocytes 6.7 % (0.0-10.0); %Neutrophils 71.7 % (42.0-75.0); Hematocrit 44.5 % (42.0-52.0); Hemoglobin 14.5 g/dL (14.0-18.0); Mean Corpuscular HGB CONC 32.6 g/dL (32.0-36.0); Mean Corpuscular Hemoglobin 28.3 pg (27.0-31.0); Mean Corpuscular Volume 86.7 fL (78.0-98.0); Mean Platelet Volume 9.6 fL (7.4-10.4); Platelet Count 290 10x3/uL (130-400); RBC Distribution Width 15.9 % (11.5-14.5); Red Blood Cell (RBC) Count 5.13 mill/uL (4.70-6.10)
[2024-04-07 16:49] LABS: ALT (SGPT) 18 U/L (8-55); AST (SGOT) 23 U/L (5-34); Albumin 4.1 g/dL (3.4-4.8); Alkaline Phosphatase 58 U/L (40-110); Anion Gap 15 mmol/L (10-20); BUN (Urea Nitrogen) 11 mg/dL (8.4-25.7); Bilirubin, Total 0.4 mg/dL (0.2-1.2); Calc. Creatinine Clearance 0 mL/min (70-130); Calcium 9.8 mg/dL (7.8-10.44); Carbon Dioxide 31 mmol/L (23-31); Chloride 96 mmol/L (98-107); Estimated GFR 73; Globulin 3.2 g/dL (2.4-3.5); Glucose 100 mg/dL (80-115); Potassium 4.2 mmol/L (3.5-5.1); Protein, Total 7.3 g/dL (5.8-8.1); Sodium 138 mmol/L (136-145)
[2024-04-07 16:53] LABS: Troponin I 0.011 ng/mL (< 0.028)
[2024-04-07] MEDS ORDERED: HYDROcodone/Acetaminophen 5/325 mg Tablet ONE (17:26)
[2024-04-07] MEDS ORDERED: Acetaminophen 500 MG TAB ONE (18:19)
== END 2024-04-07 19:50 | disposition home or self-care (01) ==
LOC: ERS 15:18
DX: R07.9 Chest pain, unspecified (principal); I10 Essential (primary) hypertension; E11.40 Type 2 diabetes mellitus with diabetic neuropathy, unspecified; Z87.891 Personal history of nicotine dependence; Z79.84 Long term (current) use of oral hypoglycemic drugs; Z79.01 Long term (current) use of anticoagulants; Z79.899 Other long term (current) drug therapy
CPT/HCPCS: 36415; 71045; 76705; 80053; 83880; 84484; 85025; 93005

== ENCOUNTER 2024-08-26 14:46 | Inpatient (IN) | payer MEDICARE, MEDICAID ==
[2024-08-26] MEDS ORDERED: Ondansetron PF 4 MG/2 ML Vial IVP PRN (16:35)
[2024-08-26] MEDS ORDERED: hydrALAZINE 20 MG/ML VIAL SLOW IVP PRN (16:42)
[2024-08-26 16:49] VITALS: BMI 25.7
[2024-08-26] MEDS ORDERED: Acetaminophen/Codeine 30-300mg Tablet PO PRN (16:54)
[2024-08-26] MEDS ORDERED: Ipratropium/Albuterol 3 ML NEB NEB PRN (17:11)
[2024-08-26] MEDS ORDERED: hydrOXYzine 25 MG TAB PO PRN (17:12)
[2024-08-26] MEDS ORDERED: Dextrose 50% Abboject 50 ML SYRINGE SLOW IVP PRN (17:45)
[2024-08-26] MEDS ORDERED: Glucagon 1 MG/ML KIT IM PRN (17:45)
[2024-08-26] MEDS ORDERED: Dextrose 5% in Water 1,000 ML IV PRN (17:45)
[2024-08-26] MEDS: Lactated Ringer's 1,000 ML IV SCH ×2 (17:56→18:18)
[2024-08-26] MEDS: Methocarbamol 500 MG TAB PO PRN (18:03)
[2024-08-26] MEDS: Dronedarone HCl 400 MG TAB PO SCH (18:03)
[2024-08-26] MEDS: Nicotine 21 MG PATCH TD SCH (18:04)
[2024-08-26] MEDS: Insulin Lispro 100 UNIT/ML 10 ML VIAL SC PRN (18:04)
[2024-08-26] MEDS: Ipratropium Bromide 2.5 ml Neb NEB SCH (19:00)
[2024-08-26] MEDS: Mometasone 100 MCG/Formoterol 5 MCG 120 PUFF INHALER INH SCH (19:01)
[2024-08-26] MEDS: Metoprolol Tartrate 25 MG TAB PO SCH (19:57)
[2024-08-26] MEDS: HYDROcodone/Acetaminophen 5/325 mg Tablet PO PRN (19:57)
[2024-08-26] MEDS: Melatonin 3 MG TAB PO SCH (19:57)
[2024-08-26] MEDS: Gabapentin 300 MG CAP PO SCH (19:58)
[2024-08-26] MEDS: Famotidine 20 MG TAB PO SCH (19:58)
[2024-08-26] MEDS: Apixaban 5 MG TAB PO SCH (19:58)
[2024-08-26] MEDS: Amlodipine 5 MG TAB PO SCH (19:58)
[2024-08-26] MEDS ORDERED: Heparin 5,000 UNITS/ML VIAL SC SCH (21:00)
[2024-08-27 04:18] LABS: #Basophils 0.03 10x3/uL (0.0-0.2); %Basophils 0.4 % (0.0-1.0); %Eosinophils 2.2 % (0.0-10.0); %Lymphocytes 24.1 % (21.0-51.0); %Monocytes 8.1 % (0.0-10.0); %Neutrophils 64.8 % (42.0-75.0); Hematocrit 41.1 % (42.0-52.0); Hemoglobin 13.5 g/dL (14.0-18.0); Mean Corpuscular HGB CONC 32.8 g/dL (32.0-36.0); Mean Corpuscular Hemoglobin 29.7 pg (27.0-31.0); Mean Corpuscular Volume 90.5 fL (78.0-98.0); Mean Platelet Volume 9.1 fL (7.4-10.4); Platelet Count 214 10x3/uL (130-400); RBC Distribution Width 13.5 % (11.5-14.5); Red Blood Cell (RBC) Count 4.54 mill/uL (4.70-6.10)
[2024-08-27 04:41] LABS: Anion Gap 11 mmol/L (10-20); BUN (Urea Nitrogen) 10 mg/dL (8.4-25.7); Calc. Creatinine Clearance 96 mL/min (70-130); Calcium 9.1 mg/dL (7.8-10.44); Carbon Dioxide 30 mmol/L (23-31); Cardiac Risk 3.3 (Less than 4.5); Chloride 103 mmol/L (98-107); Cholesterol 107 mg/dl (< 200 Desired); Estimated GFR 97; Glucose 105 mg/dL (80-115); HDL Cholesterol 32 mg/dL (>60 Neg Risk); LDL Cholesterol, Calculated 59 mg/dL; Potassium 4.9 mmol/L (3.5-5.1); Sodium 139 mmol/L (136-145); Triglycerides 80 mg/dL (Less than 150)
[2024-08-27] MEDS: Lisinopril 5 MG TAB PO SCH (08:13)
[2024-08-27] MEDS: Atorvastatin Calcium 20 MG TAB PO SCH (08:13)
[2024-08-27] MEDS: Aspirin Chewable 81 MG TAB PO SCH (08:13)
[2024-08-27] MEDS: Furosemide 20 MG TAB PO SCH (08:13)
[2024-08-27] MEDS: Pantoprazole DR 40 MG TAB PO SCH (08:13)
[2024-08-27] MEDS: Sertraline 25 MG TAB PO SCH (08:13)
[2024-08-27] MEDS: Potassium Chloride 10 MEQ TAB PO SCH (08:13)
[2024-08-27] MEDS: Morphine 4 MG/ML VIAL SLOW IVP PRN (08:20)
[2024-08-27 10:09] VITALS: BMI 25.7
[2024-08-27] MEDS ORDERED: Regadenoson 0.4 MG/5 ML SYRINGE ONE (10:53)
[2024-08-28 13:06] VITALS: BP 128/72; TEMP 98.2
== END 2024-08-28 13:40 | disposition home or self-care (01) | DRG 181 ==
LOC: UNDOADMOB 16:09 → OBS 16:09 → SURG A 16:09 → OBS 16:21 → OBSVTOIN 08-27 19:56
PROVIDERS: ADMIT Hospitalist; ATTEND Internal Medicine
DX: C34.92 Malignant neoplasm of unspecified part of left bronchus or lung (principal); C77.1 Secondary and unspecified malignant neoplasm of intrathoracic lymph nodes; D68.32 Hemorrhagic disorder due to extrinsic circulating anticoagulants; R04.2 Hemoptysis; I10 Essential (primary) hypertension; E11.9 Type 2 diabetes mellitus without complications; E78.5 Hyperlipidemia, unspecified; J44.9 Chronic obstructive pulmonary disease, unspecified; F17.210 Nicotine dependence, cigarettes, uncomplicated; T45.515A Adverse effect of anticoagulants, initial encounter; I48.0 Paroxysmal atrial fibrillation; R07.89 Other chest pain; I16.0 Hypertensive urgency; E78.00 Pure hypercholesterolemia, unspecified; Z90.49 Acquired absence of other specified parts of digestive tract; Z98.890 Other specified postprocedural states; Z88.8 Allergy status to other drugs, medicaments and biological substances; Z82.49 Family history of ischemic heart disease and other diseases of the circulatory system
CPT/HCPCS: 36415; 36416; 70470; 78452; 80048; 80061; 85025; 93017; 93306; 94640; 94760; 96374; 96376; A9500; A9502; G0378; J1815; J2272; J2785; J7644